=== PATIENT | male | born 1965 | race African-American/Black ===

== ENCOUNTER 2017-08-31 15:57 | Inpatient (IN) | payer OTHER ==
[2017-08-31 17:20] VITALS: BMI 29.8
--- NOTE | 2017-08-31 18:30 | HP ---
CIWA Score - CIWA Score Nausea/Vomitin Muscle Tremors: 4-Moderate,w/Arms Extend Anxiety: 4-Mod. Anxious/Guarded Agitation: 4-Moderately Restless Paroxysmal Sweats: 3 Orientation: 2-Disoriented Date<2 days Tacttile Disturbances: 1-Very Mild Itch/Numbness Auditory Disturbances: 0-None Visual Disturbances: 0-None Headache: 2-Mild CIWA-Ar Total Score: 23 Admission ROS BHS - HPI Chief Complaint: Withdrawal sx. Allergies/Adverse Reactions: Allergies Allergy/AdvReac Type Severity Reaction Status Date / Time No Known Allergies Allergy Verified 08/31/17 18:23 History of Present Illness: 51 y/o man with a long hx. of alcoholism is admitted for detox. Pt. has been in previous detox with 6 yrs. sober & drug free while attending [facility]. Exam Limitations: No Limitations - Ebola screening Have you traveled outside of the country in the last 21 days: No Have you had contact with anyone from an Ebola affected area: No Have you been sick,other than usual withdrawal symptoms: No Do you have a fever: No - Review of Systems Constitutional: Diaphoresis EENT: reports: No Symptoms Reported Respiratory: reports: No Symptoms reported Cardiac: reports: No Symptoms Reported GI: reports: Nausea, Vomiting, Abdominal cramping : reports: Frequency Musculoskeletal: reports: Back Pain, Joint Pain Integumentary: reports: Sweating Neuro: reports: Headache, Seizure (in the because of alcohol. was on dilantin for 1-2 yrs. then his doctor discontinue it.), Tingling, Tremors Endocrine: reports: No Symptoms Reported Hematology: reports: No Symptoms Reported Psychiatric: reports: No Sypmtoms Reported Other Systems: Reviewed and Negative Patient History - Patient Medical History Hx Anemia: No Hx Asthma: Yes Hx Chronic Obstructive Pulmonary Disease (COPD): No Hx Cancer: No Hx Cardiac Disorders: No Hx Congestive Heart Failure: No Hx Hypertension: Yes (No meds) Hx Hypercholesterolemia: No Hx Pacemaker: No HX Cerebrovascular Accident: No Hx Seizures: Yes (last in the ) Hx Dementia: No Hx Diabetes: No Hx Gastrointestinal Disorders: Yes (dyspepsia no meds) Hx Liver Disease: No Hx Genitourinary Disorders: No Hx Sexually Transmitted Disorders: Yes (GC, ? Syphillis) Hx Renal Disease (ESRD): No Hx Thyroid Disease: No Hx Human Immunodeficiency Virus (HIV): No Hx Hepatitis C: No Hx Depression: No Hx Suicide Attempt: Yes (jump off the 3rd fl at 10 y/o) Hx Bipolar Disorder: Yes (Seroquel & Remeron) Hx Schizophrenia: No Other Medical History: low back pain from buldging L-S disc - Patient Surgical History Past Surgical History: Yes Hx Breast Surgery: Yes (Gynecomastia) Hx Appendectomy: Yes Hx Cholecystectomy: Yes - PPD History Previous Implant?: Yes Documented Results: Positive w/o proof (Took INH x 9 months) Implanted On Prior [facility] Admission?: No PPD to be Administered?: No - Smoking Cessation Smoking history: Current every day smoker Aproximately how many cigarettes per day: 5 Hx Chewing Tobacco Use: No Initiated information on smoking cessation: Yes 'Breaking Loose' booklet given: 08/31/17 - Substance & Tx. History Hx Alcohol Use: Yes Hx Substance Use: Yes Substance Use Type: Alcohol, Cocaine Hx Substance Use Treatment: Yes (Detox [facility] in 2007 & [facility] in 2009) - Substances Abused Alcohol Route: Oral Frequency: Daily Amount used: Rum 1 pint, Beer 1(6pack) Age of first use: 11 Date of Last Use: 08/31/17 Cocaine Route: Inhalation Frequency: Daily Amount used: $20.00-100.00 Age of first use: 26 Date of Last Use: 08/31/17 Family Disease History - Family Disease History Family Disease History: Diabetes: Grandparent, Other: Father (Alcohol), Brother (Marihuana) Admission Physical Exam [facility] - Vital Signs Vital Signs: Vital Signs - 24 hr 08/31/17 17:18 Temperature 97.8 F Pulse Rate 100 H Respiratory 18 Rate Blood Pressure 128/75 - Physical General Appearance: Yes: Tremorous, Irritable, Sweating, Anxious HEENTM: Yes: Within Normal Limits Respiratory: Yes: Chest Non-Tender, Lungs Clear, Normal Breath Sounds Neck: Yes: Supple Breast: Yes: Breast Exam Deferred Cardiology: Yes: Regular Rhythm, Regular Rate, S1, S2 Abdominal: Yes: Normal Bowel Sounds, Non Tender, Flat Genitourinary: Yes: Within Normal Limits Back: Yes: Within Normal Limits Musculoskeletal: Yes: full range of Motion Extremities: Yes: Tremors Neurological: Yes: Fully Oriented, Alert Integumentary: Yes: Diaphoresis Lymphatic: Yes: Within Normal Limits - Diagnostic (1) Alcohol dependence with uncomplicated withdrawal Current Visit: Yes Status: Acute (2) Cocaine dependence, uncomplicated Current Visit: Yes Status: Acute (3) Asthma Current Visit: Yes Status: Acute Qualifiers: Asthma severity: mild Asthma persistence: intermittent Asthma complication type: uncomplicated Qualified Code(s): J45.20 - Mild intermittent asthma, uncomplicated (4) Lumbago Current Visit: Yes Status: Acute Qualifiers: Chronicity: chronic Cleared for Admission [facility] - Detox or Rehab [facility] Level of Care: Medically Managed Detox Regimen/Protocol: Librium [facility] Breath Alcohol Content Breath Alcohol Content: 0 Urine Drug Screen - Results Drug Screen Negative: No Urine Drug Screen Results: EDGARDO-Cocaine, TCA-Tricyclic Antidepress
[2017-08-31] MEDS ORDERED: LOPERAMIDE HCL 2 MG CAPSULE PO PRN (18:46)
[2017-08-31] MEDS ORDERED: MAGNESIUM CITRATE 300 ML BOTTLE PO PRN (18:46)
[2017-08-31] MEDS ORDERED: chlordiazePOXIDE HCL 25 MG CAPSULE PO ONE (18:46)
[2017-08-31] MEDS ORDERED: P-EPHED 60MG/TRIPROLIDI 2.5MG TABLET PO PRN (18:46)
[2017-08-31] MEDS ORDERED: guaiFENesin/D-METHORPHAN HB 10 ML UNIT-DOSE CUPS PO PRN (18:46)
[2017-08-31] MEDS ORDERED: NICOTINE POLACRILEX 2 MG GUM BC PRN (18:46)
[2017-08-31] MEDS ORDERED: hydrOXYzine PAMOATE 50 MG CAPSULE (FP) PO PRN (18:46)
[2017-08-31] MEDS ORDERED: MAGNESIUM HYDROX 2400MG/30ML ORAL SUSPENSION 30 ML CUP PO PRN (18:46)
[2017-08-31] MEDS ORDERED: chlordiazePOXIDE HCL 25 MG CAPSULE PO PRN (18:46)
[2017-08-31] MEDS ORDERED: ACETAMINOPHEN 325 MG TABLET (FP) PO PRN (18:46)
[2017-08-31] MEDS ORDERED: MENTHOL/PHENOL 1 EACH UD MM PRN (18:46)
[2017-08-31] MEDS ORDERED: ONDANSETRON *ODT* 4 MG TABLET SL ONE (18:49)
[2017-08-31] MEDS: NICOTINE 14 MG/24 HOURS TOPICAL PATCH TD SCH (20:05)
[2017-08-31] MEDS: METHOCARBAMOL 750 MG TABLET PO SCH ×2 (20:57→22:33)
[2017-08-31] MEDS: IBUPROFEN 400 MG TABLET (FP) PO PRN (20:58)
[2017-08-31] MEDS: THIAMINE HCL 100 MG TABLET (FP) PO SCH (22:33)
[2017-08-31] MEDS: chlordiazePOXIDE HCL 25 MG CAPSULE PO SCH (22:33)
[2017-09-01 01:49] LABS: URINE APPEARANCE CLEAR; URINE BILIRUBIN NEGATIVE (NEGATIVE); URINE BLOOD NEGATIVE (NEGATIVE); URINE COLOR LTYELLOW; URINE GLUCOSE (UA) NEGATIVE (NEGATIVE); URINE KETONE NEGATIVE (NEGATIVE); URINE NITRITE NEGATIVE (NEGATIVE); URINE UROBILINOGEN NEGATIVE mg/dL (0.2-1.0)
[2017-09-01 01:50] LABS: URINE PROTEIN 1+ (NEGATIVE)
[2017-09-01 01:53] LABS: URINE MUCUS RARE; URINE RBC < 1; URINE WBC < 1
[2017-09-01] MEDS: IBUPROFEN 400 MG TABLET (FP) PO PRN ×3 (04:26→22:04)
[2017-09-01] MEDS: chlordiazePOXIDE HCL 25 MG CAPSULE PO SCH ×4 (05:44→22:03)
--- NOTE | 2017-09-01 09:43 | EKG ---
Test Reason : Blood Pressure : / mmHG Vent. Rate : 092 BPM Atrial Rate : 092 BPM P-R Int : 152 ms QRS Dur : 086 ms QT Int : 366 ms P-R-T Axes : 063 074 056 degrees QTc Int : 452 ms NORMAL SINUS RHYTHM POSSIBLE LEFT ATRIAL ENLARGEMENT SEPTAL INFARCT , AGE UNDETERMINED ABNORMAL ECG NO PREVIOUS ECGS AVAILABLE Confirmed by SELENE KIM MD ([id number]) on 09/01/2017 9:42:37 AM Referred By: Confirmed By:SELENE KIM MD
[2017-09-01 10:19] LABS: MCH 29.3 pg (25.7-33.7); MCHC 32.8 g/dl (32.0-35.9); MEAN CELL VOLUME 89.4 fl (80-96); MEAN PLT VOLUME 8.8 fl (7.5-11.1); PLATELET COUNT 181 K/MM3 (134-434); RDW 14.1 % (11.9-15.9); WHITE BLOOD COUNT 4.9 K/mm3 (4.0-10.0)
[2017-09-01] MEDS: METHOCARBAMOL 750 MG TABLET PO SCH ×4 (10:21→22:05)
[2017-09-01] MEDS: ONDANSETRON *ODT* 4 MG TABLET SL PRN (10:22)
[2017-09-01] MEDS: PRENATAL VITAMINS W/ FOLIC ACID TABLET (FP) PO SCH (10:22)
[2017-09-01] MEDS: NICOTINE 14 MG/24 HOURS TOPICAL PATCH TD SCH (10:27)
[2017-09-01 10:32] LABS: ALBUMIN 3.5 g/dl (3.4-5.0); ALK PHOS 84 U/L (45-117); ANION GAP 5 (8-16); BILIRUBIN,TOTAL 0.4 mg/dL (0.2-1.0); CALCIUM 8.1 mg/dL (8.5-10.1); CO2 28 mmol/L (21-32); CREATININE 1.3 mg/dL (0.7-1.3); GLUCOSE,RANDOM 112 mg/dL (74-106); SGOT/AST 15 U/L (15-37); SGPT/ALT 24 U/L (12-78)
[2017-09-01 12:00] LABS: URINE LEUK ESTERASE Negative (NEGATIVE)
--- NOTE | 2017-09-01 12:17 | CONSULT ---
[facility] Psychiatric Consult - Data Date of interview: 09/01/17 Admission source: [facility] Identifying data: First admission to [facility] for this 51 y/o AA male seeking detox treatment on for alcohol and cocaine dependence.Patient is single, a father of four,domiciled,unemployed and supported on Public Assistance. Substance Abuse History: Patient endorses active use of alcohol and cocaine as detailed in [facility] report. Smoking history: Current every day smoker. Aproximately how many cigarettes per day: 5. Hx Chewing Tobacco Use: No. Initiated information on smoking cessation: Yes. 'Breaking Loose' booklet given : 08/31/17. - Substance & Tx. History. Hx Alcohol Use: Yes. Hx Substance Use : Yes. Substance Use Type: Alcohol, Cocaine. Hx Substance Use Treatment: Yes ( Detox [facility] in 2007 & [facility] in 2009). - Substances Abused. Alcohol. Route: Oral. Frequency: Daily. Amount used: Rum 1 pint, Beer 1(6pack). Age of first use: 11. Date of Last Use: 08/31/17. Cocaine. Route: Inhalation. Frequency: Daily. Amount used: $20.00-100.00. Age of first use: 26. Date of Last Use: 08/31/17 Medical History: Bronchial asthma,hypertension,seizure disorder (substance- related),dyspepsia,herniated disc,past history of surgery for gynecomastia and antecedent of syphilis/gonorrhea + INH treatment for nine months. Psychiatric History: Diagnosed with Bipolar Disorder.Medicated with seroquel 100 mg po bid + remeron 30 mg/hs.Patient admits to a history of 5-7 psychiatric hospitalizations.Known to [facility].Mr Escobar is under the care of Dr Silveira ,psychiatrist at the [facility] program in the [place].Patient reports history of two suicide attempts (overdose with pills + deliberate jump from a third floor window at age 10). Physical/Sexual Abuse/Trauma History: No reported history of abuse. Additional Comment: Urine Drug Screen Results: EDGARDO-Cocaine, TCA-Tricyclic Antidepressant.Noted. Mental Status Exam - Mental Status Exam Alert and Oriented to: Time, Place, Person Cognitive Function: Good Patient Appearance: Well Groomed Mood: Hopeful, Euthymic Affect: Appropriate, Normal Range Patient Behavior: Fatigued, Cooperative Speech Pattern: Clear Voice Loudness: Normal Thought Process: Intact, Goal Oriented Thought Disorder: Not Present Hallucinations: Denies Suicidal Ideation: Denies Homicidal Ideation: Denies Insight/Judgement: Poor Sleep: Poorly, Difficulty falling asleep Appetite: Good Muscle strength/Tone: Normal Gait/Station: Normal Psychiatric Findings - Problem List ([place] 1, 2,3) (1) Alcohol dependence with uncomplicated withdrawal Current Visit: Yes Status: Acute (2) Cocaine dependence, uncomplicated Current Visit: Yes Status: Acute (3) Nicotine dependence Current Visit: Yes Status: Acute (4) Substance induced mood disorder Current Visit: Yes Status: Acute (5) Insomnia Current Visit: Yes Status: Acute - Initial Treatment Plan Initial Treatment Plan: Psychoeducation.Sleep hygiene.Detoxification.Medications : seroquel 100 mg po bid + remeron 30 mg po hs.Side effects/benefits are discussed with patient.He agrees to follow this careplan.Observation.
--- NOTE | 2017-09-01 12:21 | PN ---
S CIWA - CIWA Score Nausea/Vomitin Muscle Tremors: 3 Anxiety: 4-Mod. Anxious/Guarded Agitation: 1-Slight > Activity Paroxysmal Sweats: 2 Orientation: 2-Disoriented Date<2 days Tacttile Disturbances: 0-None Auditory Disturbances: 0-None Visual Disturbances: 0-None Headache: 3-Moderate CIWA-Ar Total Score: 21 BHS Progress Note (SOAP) Subjective: Sweating, Tremors, Diarrhea, Vomiting, H/A, Interrupted Sleep, Body Aches, Tremors. Objective: PT. A & O X 2 (UNCERTAIN ABOUT DAY / DATE). PT. OBSERVED AMBULATING ON UNIT. NO ACUTE DISTRESS. 09/01/17 12:18 Vital Signs Temperature 95.6 F L 09/01/17 09:19 Pulse Rate 89 09/01/17 09:19 Respiratory Rate 20 09/01/17 09:19 Blood Pressure 125/81 09/01/17 09:19 O2 Sat by Pulse Oximetry (%) Laboratory Tests 08/31/17 09/01/17 09/01/17 19:28 07:00 07:00 WBC 4.9 RBC 4.64 Hgb 13.6 Hct 41.5 MCV 89.4 MCH 29.3 MCHC 32.8 RDW 14.1 Plt Count 181 MPV 8.8 Sodium 144 Potassium 3.8 Chloride 111 H Carbon Dioxide 28 Anion Gap 5 L BUN 18 Creatinine 1.3 Creat Clearance w eGFR 57.75 Random Glucose 112 H Calcium 8.1 L Total Bilirubin 0.4 AST 15 ALT 24 Alkaline Phosphatase 84 Total Protein 7.0 Albumin 3.5 Urine Color Ltyellow Urine Appearance Clear Urine pH 6.0 Ur Specific [place] 1.011 Urine Protein 1+ H Urine Glucose (UA) Negative Urine Ketones Negative Urine Blood Negative Urine Nitrite Negative Urine Bilirubin Negative Urine Urobilinogen Negative Urine WBC (Auto) < 1 Urine RBC (Auto) < 1 Ur Epithelial Cells Rare Urine Mucus Rare RPR Titer 09/01/17 07:00 WBC RBC Hgb Hct MCV MCH MCHC RDW Plt Count MPV Sodium Potassium Chloride Carbon Dioxide Anion Gap BUN Creatinine Creat Clearance w eGFR Random Glucose Calcium Total Bilirubin AST ALT Alkaline Phosphatase Total Protein Albumin Urine Color Urine Appearance Urine pH Ur Specific [place] Urine Protein Urine Glucose (UA) Urine Ketones Urine Blood Urine Nitrite Urine Bilirubin Urine Urobilinogen Urine WBC (Auto) Urine RBC (Auto) Ur Epithelial Cells Urine Mucus RPR Titer Nonreactive LABS NOTED. Assessment: 09/01/17 12:19 WITHDRAWAL SYMPTOMS. Plan: CONTINUE DETOX.
[2017-09-01] MEDS: ALBUTEROL SO4 18 GM HFA INHALER IH PRN (18:14)
[2017-09-01] MEDS: ALBUTEROL SO4 2.5/IPRATROPIUM 0.5 INH SOL 3 ML VIAL.NEB. NEB PRN (19:03)
[2017-09-01] MEDS: MIRTAZAPINE 30 MG TABLET (FP) PO SCH (22:03)
[2017-09-01] MEDS: QUEtiapine FUMARATE 100 MG TABLET (FP) PO SCH (22:03)
[2017-09-01] MEDS: THIAMINE HCL 100 MG TABLET (FP) PO SCH (22:06)
[2017-09-02] MEDS: chlordiazePOXIDE HCL 25 MG CAPSULE PO SCH ×3 (06:17→17:36)
[2017-09-02] MEDS: METHOCARBAMOL 750 MG TABLET PO SCH ×4 (10:42→22:11)
[2017-09-02] MEDS: PRENATAL VITAMINS W/ FOLIC ACID TABLET (FP) PO SCH (10:42)
[2017-09-02] MEDS: MAG HYDROX/AL HYDROX/SIMETH 30 ML UNIT-DOSE CUP PO PRN ×2 (10:42→21:47)
[2017-09-02] MEDS: QUEtiapine FUMARATE 100 MG TABLET (FP) PO SCH ×2 (10:43→22:11)
[2017-09-02] MEDS: NICOTINE 14 MG/24 HOURS TOPICAL PATCH TD SCH (10:43)
[2017-09-02] MEDS: IBUPROFEN 400 MG TABLET (FP) PO PRN ×3 (10:44→22:43)
[2017-09-02] MEDS: ALBUTEROL SO4 18 GM HFA INHALER IH PRN (10:48)
--- NOTE | 2017-09-02 14:13 | PN ---
S CIWA - CIWA Score Nausea/Vomitin Muscle Tremors: None Anxiety: 4-Mod. Anxious/Guarded Agitation: 3 Paroxysmal Sweats: No Perspiration Orientation: 2-Disoriented Date<2 days Tacttile Disturbances: 2-Mild Itch/Numbness/Burn Auditory Disturbances: 0-None Visual Disturbances: 0-None Headache: 3-Moderate CIWA-Ar Total Score: 19 BHS Progress Note (SOAP) Subjective: Interrupted Sleep, H/A, Vomiting, Stomach Cramping, Fatigue. Objective: PT. A & OX 2 (UNCERTAIN ABOUT DAY / DATE). PT. OBSERVED AMBULATING ON UNIT. NO ACUTE DISTRESS. 09/02/17 14:10 Vital Signs Temperature 96.4 F L 09/02/17 10:00 Pulse Rate 103 H 09/02/17 10:00 Respiratory Rate 18 09/02/17 10:00 Blood Pressure 134/94 09/02/17 10:00 O2 Sat by Pulse Oximetry (%) Laboratory Tests 08/31/17 09/01/17 09/01/17 19:28 07:00 07:00 WBC 4.9 RBC 4.64 Hgb 13.6 Hct 41.5 MCV 89.4 MCH 29.3 MCHC 32.8 RDW 14.1 Plt Count 181 MPV 8.8 Sodium 144 Potassium 3.8 Chloride 111 H Carbon Dioxide 28 Anion Gap 5 L BUN 18 Creatinine 1.3 Creat Clearance w eGFR 57.75 Random Glucose 112 H Calcium 8.1 L Total Bilirubin 0.4 AST 15 ALT 24 Alkaline Phosphatase 84 Total Protein 7.0 Albumin 3.5 Urine Color Ltyellow Urine Appearance Clear Urine pH 6.0 Ur Specific [place] 1.011 Urine Protein 1+ H Urine Glucose (UA) Negative Urine Ketones Negative Urine Blood Negative Urine Nitrite Negative Urine Bilirubin Negative Urine Urobilinogen Negative Ur Leukocyte Esterase Negative Urine WBC (Auto) < 1 Urine RBC (Auto) < 1 Ur Epithelial Cells Rare Urine Mucus Rare RPR Titer 09/01/17 07:00 WBC RBC Hgb Hct MCV MCH MCHC RDW Plt Count MPV Sodium Potassium Chloride Carbon Dioxide Anion Gap BUN Creatinine Creat Clearance w eGFR Random Glucose Calcium Total Bilirubin AST ALT Alkaline Phosphatase Total Protein Albumin Urine Color Urine Appearance Urine pH Ur Specific [place] Urine Protein Urine Glucose (UA) Urine Ketones Urine Blood Urine Nitrite Urine Bilirubin Urine Urobilinogen Ur Leukocyte Esterase Urine WBC (Auto) Urine RBC (Auto) Ur Epithelial Cells Urine Mucus RPR Titer Nonreactive LABS NOTED. Assessment: 09/02/17 14:12 WITHDRAWAL SYMPTOMS. Plan: CONTINUE DETOX. PRN ZOFRAN SL FOR NAUSEA / VOMITING. INCREASE DAILY PO FLUID INTAKE.
[2017-09-02] MEDS: ONDANSETRON *ODT* 4 MG TABLET SL PRN (14:36)
[2017-09-02] MEDS: ALBUTEROL SO4 2.5/IPRATROPIUM 0.5 INH SOL 3 ML VIAL.NEB. NEB PRN (18:21)
[2017-09-02] MEDS: THIAMINE HCL 100 MG TABLET (FP) PO SCH (22:11)
[2017-09-02] MEDS: chlordiazePOXIDE 5 MG CAPSULE PO SCH (22:11)
[2017-09-02] MEDS: MIRTAZAPINE 30 MG TABLET (FP) PO SCH (22:11)
[2017-09-03] MEDS: chlordiazePOXIDE 5 MG CAPSULE PO SCH ×3 (06:18→17:39)
[2017-09-03] MEDS: ONDANSETRON *ODT* 4 MG TABLET SL PRN ×2 (09:50→15:14)
[2017-09-03] MEDS: PRENATAL VITAMINS W/ FOLIC ACID TABLET (FP) PO SCH (10:34)
[2017-09-03] MEDS: QUEtiapine FUMARATE 100 MG TABLET (FP) PO SCH ×2 (10:34→22:18)
[2017-09-03] MEDS: NICOTINE 14 MG/24 HOURS TOPICAL PATCH TD SCH (10:34)
[2017-09-03] MEDS: METHOCARBAMOL 750 MG TABLET PO SCH ×4 (10:34→22:19)
--- NOTE | 2017-09-03 13:04 | PN ---
BHS Progress Note (SOAP) Subjective: Constipation, Nausea, Stomach Cramping, Fatigue, Interrupted Sleep. Objective: PT. A & O X 2 (UNCERTAIN ABOUT DAY / DATE). PT. OBSERVED AMBULATING ON UNIT. NO ACUTE DISTRESS. 09/03/17 13:02 Vital Signs Temperature 96.8 F L 09/03/17 09:43 Pulse Rate 106 H 09/03/17 09:43 Respiratory Rate 16 09/03/17 09:43 Blood Pressure 135/88 09/03/17 09:43 O2 Sat by Pulse Oximetry (%) Laboratory Tests 08/31/17 09/01/17 09/01/17 19:28 07:00 07:00 WBC 4.9 RBC 4.64 Hgb 13.6 Hct 41.5 MCV 89.4 MCH 29.3 MCHC 32.8 RDW 14.1 Plt Count 181 MPV 8.8 Sodium 144 Potassium 3.8 Chloride 111 H Carbon Dioxide 28 Anion Gap 5 L BUN 18 Creatinine 1.3 Creat Clearance w eGFR 57.75 Random Glucose 112 H Calcium 8.1 L Total Bilirubin 0.4 AST 15 ALT 24 Alkaline Phosphatase 84 Total Protein 7.0 Albumin 3.5 Urine Color Ltyellow Urine Appearance Clear Urine pH 6.0 Ur Specific [place] 1.011 Urine Protein 1+ H Urine Glucose (UA) Negative Urine Ketones Negative Urine Blood Negative Urine Nitrite Negative Urine Bilirubin Negative Urine Urobilinogen Negative Ur Leukocyte Esterase Negative Urine WBC (Auto) < 1 Urine RBC (Auto) < 1 Ur Epithelial Cells Rare Urine Mucus Rare RPR Titer 09/01/17 07:00 WBC RBC Hgb Hct MCV MCH MCHC RDW Plt Count MPV Sodium Potassium Chloride Carbon Dioxide Anion Gap BUN Creatinine Creat Clearance w eGFR Random Glucose Calcium Total Bilirubin AST ALT Alkaline Phosphatase Total Protein Albumin Urine Color Urine Appearance Urine pH Ur Specific [place] Urine Protein Urine Glucose (UA) Urine Ketones Urine Blood Urine Nitrite Urine Bilirubin Urine Urobilinogen Ur Leukocyte Esterase Urine WBC (Auto) Urine RBC (Auto) Ur Epithelial Cells Urine Mucus RPR Titer Nonreactive LABS NOTED. Assessment: 09/03/17 13:03 WITHDRAWAL SYMPTOMS. Plan: CONTINUE DETOX. INCREASE DAILY PO FLUID INTAKE. PRN ZOFRAN SL FOR NAUSEA. PRN MOM FOR CONSTIPATION.
[2017-09-03] MEDS: IBUPROFEN 400 MG TABLET (FP) PO PRN (17:40)
[2017-09-03] MEDS: THIAMINE HCL 100 MG TABLET (FP) PO SCH (22:18)
[2017-09-03] MEDS: MIRTAZAPINE 30 MG TABLET (FP) PO SCH (22:19)
[2017-09-03] MEDS: chlordiazePOXIDE HCL 10 MG CAPSULE PO SCH (22:19)
[2017-09-03] MEDS: ALBUTEROL SO4 2.5/IPRATROPIUM 0.5 INH SOL 3 ML VIAL.NEB. NEB PRN (22:24)
[2017-09-04] MEDS: ONDANSETRON *ODT* 4 MG TABLET SL PRN (02:02)
[2017-09-04] MEDS: chlordiazePOXIDE HCL 10 MG CAPSULE PO SCH ×3 (06:07→17:21)
[2017-09-04] MEDS: QUEtiapine FUMARATE 100 MG TABLET (FP) PO SCH ×2 (10:26→22:29)
[2017-09-04] MEDS: PRENATAL VITAMINS W/ FOLIC ACID TABLET (FP) PO SCH (10:26)
[2017-09-04] MEDS: NICOTINE 14 MG/24 HOURS TOPICAL PATCH TD SCH (10:27)
[2017-09-04] MEDS: METHOCARBAMOL 750 MG TABLET PO SCH ×4 (10:27→22:30)
[2017-09-04] MEDS: IBUPROFEN 400 MG TABLET (FP) PO PRN ×2 (13:55→22:29)
--- NOTE | 2017-09-04 14:36 | PN ---
BHS Progress Note (SOAP) Subjective: Interrupted Sleep, Fatigue, Anxious, H/A, Diarrhea, Body Aches. Objective: PT. A & O X 2 (UNCERTAIN ABOUT DAY / DATE). PT. OBSERVED AMBULATING ON UNIT. NO ACUTE DISTRESS. 09/04/17 14:34 Vital Signs Temperature 96.3 F L 09/04/17 08:52 Pulse Rate 99 H 09/04/17 08:52 Respiratory Rate 20 09/04/17 08:52 Blood Pressure 126/85 09/04/17 08:52 O2 Sat by Pulse Oximetry (%) Laboratory Tests 08/31/17 09/01/17 09/01/17 19:28 07:00 07:00 WBC 4.9 RBC 4.64 Hgb 13.6 Hct 41.5 MCV 89.4 MCH 29.3 MCHC 32.8 RDW 14.1 Plt Count 181 MPV 8.8 Sodium 144 Potassium 3.8 Chloride 111 H Carbon Dioxide 28 Anion Gap 5 L BUN 18 Creatinine 1.3 Creat Clearance w eGFR 57.75 Random Glucose 112 H Calcium 8.1 L Total Bilirubin 0.4 AST 15 ALT 24 Alkaline Phosphatase 84 Total Protein 7.0 Albumin 3.5 Urine Color Ltyellow Urine Appearance Clear Urine pH 6.0 Ur Specific [place] 1.011 Urine Protein 1+ H Urine Glucose (UA) Negative Urine Ketones Negative Urine Blood Negative Urine Nitrite Negative Urine Bilirubin Negative Urine Urobilinogen Negative Ur Leukocyte Esterase Negative Urine WBC (Auto) < 1 Urine RBC (Auto) < 1 Ur Epithelial Cells Rare Urine Mucus Rare RPR Titer 09/01/17 07:00 WBC RBC Hgb Hct MCV MCH MCHC RDW Plt Count MPV Sodium Potassium Chloride Carbon Dioxide Anion Gap BUN Creatinine Creat Clearance w eGFR Random Glucose Calcium Total Bilirubin AST ALT Alkaline Phosphatase Total Protein Albumin Urine Color Urine Appearance Urine pH Ur Specific [place] Urine Protein Urine Glucose (UA) Urine Ketones Urine Blood Urine Nitrite Urine Bilirubin Urine Urobilinogen Ur Leukocyte Esterase Urine WBC (Auto) Urine RBC (Auto) Ur Epithelial Cells Urine Mucus RPR Titer Nonreactive LABS NOTED. Assessment: 09/04/17 14:35 WITHDRAWAL SYMPTOMS. Plan: CONTINUE DETOX. INCREASE DAILY PO FLUID INTAKE. PRN IMMODIUM FOR DIARRHEA. PRN ZOFRAN SL FOR VOMITING.
[2017-09-04] MEDS: ALBUTEROL SO4 2.5/IPRATROPIUM 0.5 INH SOL 3 ML VIAL.NEB. NEB PRN (17:59)
[2017-09-04] MEDS: MIRTAZAPINE 30 MG TABLET (FP) PO SCH (22:29)
[2017-09-04] MEDS: THIAMINE HCL 100 MG TABLET (FP) PO SCH (22:29)
[2017-09-05] MEDS: METHOCARBAMOL 750 MG TABLET PO SCH (09:03)
[2017-09-05] MEDS: PRENATAL VITAMINS W/ FOLIC ACID TABLET (FP) PO SCH (09:03)
[2017-09-05] MEDS: IBUPROFEN 400 MG TABLET (FP) PO PRN (09:03)
[2017-09-05 10:21] VITALS: BP 127/81; PULSE 99; TEMP 96.5
--- NOTE | 2017-09-05 17:29 | DS ---
[facility] Detox Discharge Summary Admission Date: 08/31/17 Discharge Date: 09/05/17 - History Present History: Alcohol Dependence, Cocaine Dependence Additional Comments: PATIENT REPORTS THAT HE WILL PURSUE LOCAL 12-STEP / NA / AA OUTPATIENT SUPPORT GROUP MEETINGS FOR AFTERCARE. PATIENT WAS DISCHARGED FROM DETOX UNIT IN STABLE MEDICAL CONDITION. Pertinent Past History: History of Seizures, Nicotine Dependence, Lumbago, Asthma, Insomnia. - Physical Exam Results Vital Signs: Vital Signs Temperature 96.5 F L 09/05/17 10:00 Pulse Rate 99 H 09/05/17 10:00 Respiratory Rate 18 09/05/17 10:00 Blood Pressure 127/81 09/05/17 10:00 O2 Sat by Pulse Oximetry (%) Pertinent Admission Physical Exam Findings: WITHDRAWAL SYMPTOMS. Laboratory Tests 08/31/17 09/01/17 09/01/17 19:28 07:00 07:00 WBC 4.9 RBC 4.64 Hgb 13.6 Hct 41.5 MCV 89.4 MCH 29.3 MCHC 32.8 RDW 14.1 Plt Count 181 MPV 8.8 Sodium 144 Potassium 3.8 Chloride 111 H Carbon Dioxide 28 Anion Gap 5 L BUN 18 Creatinine 1.3 Creat Clearance w eGFR 57.75 Random Glucose 112 H Calcium 8.1 L Total Bilirubin 0.4 AST 15 ALT 24 Alkaline Phosphatase 84 Total Protein 7.0 Albumin 3.5 Urine Color Ltyellow Urine Appearance Clear Urine pH 6.0 Ur Specific [place] 1.011 Urine Protein 1+ H Urine Glucose (UA) Negative Urine Ketones Negative Urine Blood Negative Urine Nitrite Negative Urine Bilirubin Negative Urine Urobilinogen Negative Ur Leukocyte Esterase Negative Urine WBC (Auto) < 1 Urine RBC (Auto) < 1 Ur Epithelial Cells Rare Urine Mucus Rare RPR Titer 09/01/17 07:00 WBC RBC Hgb Hct MCV MCH MCHC RDW Plt Count MPV Sodium Potassium Chloride Carbon Dioxide Anion Gap BUN Creatinine Creat Clearance w eGFR Random Glucose Calcium Total Bilirubin AST ALT Alkaline Phosphatase Total Protein Albumin Urine Color Urine Appearance Urine pH Ur Specific [place] Urine Protein Urine Glucose (UA) Urine Ketones Urine Blood Urine Nitrite Urine Bilirubin Urine Urobilinogen Ur Leukocyte Esterase Urine WBC (Auto) Urine RBC (Auto) Ur Epithelial Cells Urine Mucus RPR Titer Nonreactive LABS NOTED. - Treatment Hospital Course: Detox Protocol Followed, Detoxed Safely, Responded well, Discharged Condition Good Patient has Accepted a Rehab Referral to: PT ADVISED TO CONSIDER LOCAL 12-STEP/ NA/AA OUTPATIENT SUPPORT GROUPS. - Medication Discharge Medications: Ambulatory Orders Mirtazapine [Remeron -] 30 mg PO HS 08/31/17 Quetiapine Fumarate [Seroquel] 100 mg PO BID 08/31/17 Albuterol Sulfate Inhaler - [Ventolin Hfa Inhaler -] 2 inh PO Q4H #1 inhaler - Diagnosis (1) Alcohol dependence with uncomplicated withdrawal Status: Acute (2) Cocaine dependence, uncomplicated Status: Acute (3) Asthma Status: Chronic Qualifiers: Asthma severity: mild Asthma persistence: intermittent Asthma complication type: uncomplicated Qualified Code(s): J45.20 - Mild intermittent asthma, uncomplicated (4) Insomnia Status: Acute Qualifiers: Insomnia type: unspecified Qualified Code(s): G47.00 - Insomnia, unspecified (5) Lumbago Status: Chronic Qualifiers: Chronicity: chronic Back pain laterality: unspecified Sciatica presence: unspecified whether sciatica present Qualified Code(s): M54.5 - Low back pain ; G89.29 - Other chronic pain; G89.29 - Other chronic pain (6) Nicotine dependence Status: Acute Qualifiers: Nicotine product type: cigarettes Substance use status: uncomplicated Qualified Code(s): F17.210 - Nicotine dependence, cigarettes, uncomplicated (7) Substance induced mood disorder Status: Acute - AMA Did Patient Leave Against Medical Advice: No
== END 2017-09-05 09:06 | disposition home or self-care (01) | DRG 774 ==
LOC: YASAS 15:57 → Y3N 19:23
PROVIDERS: ADMIT Internal Medicine; ATTEND Internal Medicine
PROC: HZ2ZZZZ Detoxification Services for Substance Abuse Treatment (ICD-10-PCS; principal; 2017-08-31)
DX: F10.230 Alcohol dependence with withdrawal, uncomplicated (principal); F14.20 Cocaine dependence, uncomplicated; F17.210 Nicotine dependence, cigarettes, uncomplicated; F19.24 Other psychoactive substance dependence with psychoactive substance-induced mood disorder; I10 Essential (primary) hypertension; J45.20 Mild intermittent asthma, uncomplicated; M54.5 Low back pain; G89.29 Other chronic pain; Z86.69 Personal history of other diseases of the nervous system and sense organs; Z87.438 Personal history of other diseases of male genital organs; Z91.5 Personal history of self-harm
CPT/HCPCS: 36415; 71020-TC; 80053; 81003; 81015; 85027; 86593; 93005; 93010; 94640

== ENCOUNTER 2018-02-14 14:59 | Inpatient (IN) | payer OTHER ==
[2018-02-14 15:04] VITALS: BMI 30.2
--- NOTE | 2018-02-14 15:51 | HP ---
COWS - Scale Resting Pulse: 2= [place] 101-120 Sweatin=Flushed/Facial Moisture Restless Observation: 1= Difficult to Sit Still Pupil Size: 0= Normal to Room Light Bone or Joint Aches: 2= Severe Diffuse Aches Runny Nose/ Eye Tearin= Runny Nose/Eyes GI Upset > 30mins: 3= Vomiting/Diarrhea Tremor Observation: 2= Slight Tremor Visible Yawning Observation: 1= 1-2x During Session Anxiety or Irritability: 2=Irritable/Anxious Goose Flesh Skin: 3=Piloerection COWS Score: 20 CIWA Score - CIWA Score Nausea/Vomitin Muscle Tremors: 3 Anxiety: 3 Agitation: 2 Paroxysmal Sweats: 2 Orientation: 0-Oriented Tacttile Disturbances: 2-Mild Itch/Numbness/Burn Auditory Disturbances: 0-None Visual Disturbances: 1-Very Mild Sensitivity Headache: 4-Moderately Severe CIWA-Ar Total Score: 20 Admission ROS S - HPI Chief Complaint: "I need detoxification" Allergies/Adverse Reactions: Allergies Allergy/AdvReac Type Severity Reaction Status Date / Time No Known Allergies Allergy Verified 08/31/17 19:05 History of Present Illness: 52 year old AA man with long standing h/o alcohol dependence presents for detox. Patient with positive benzo in urine which he claims is from pain management given for his back pain Exam Limitations: No Limitations - Ebola screening Have you traveled outside of the country in the last 21 days: No Have you had contact with anyone from an Ebola affected area: No Have you been sick,other than usual withdrawal symptoms: No Do you have a fever: No - Review of Systems Constitutional: Chills, Loss of Appetite, Changes in sleep EENT: reports: Dental Problems (missing some teeth), Other (left eye blindness from ) Respiratory: reports: Cough Cardiac: reports: No Symptoms Reported GI: reports: Diarrhea, Poor Appetite, Poor Fluid Intake : reports: No Symptoms Reported Musculoskeletal: reports: Back Pain, Joint Pain, Muscle Pain, Muscle Weakness Integumentary: reports: No Symptoms Reported Neuro: reports: Headache, Numbness, Tremors Endocrine: reports: No Symptoms Reported Hematology: reports: No Symptoms Reported Psychiatric: reports: Anxious, Depressed Other Systems: Reviewed and Negative Patient History - Patient Medical History Hx Anemia: No Hx Asthma: Yes Hx Chronic Obstructive Pulmonary Disease (COPD): No Hx Cancer: No Hx Cardiac Disorders: No Hx Congestive Heart Failure: No Hx Hypertension: No Hx Hypercholesterolemia: No Hx Pacemaker: No HX Cerebrovascular Accident: No Hx Seizures: Yes (alcohol reated in 1979) Hx Dementia: No Hx Diabetes: No Hx Gastrointestinal Disorders: No Hx Liver Disease: No Hx Genitourinary Disorders: No Hx Sexually Transmitted Disorders: No Hx Renal Disease (ESRD): No Hx Thyroid Disease: No Hx Human Immunodeficiency Virus (HIV): No Hx Hepatitis C: No Hx Depression: Yes Hx Suicide Attempt: Yes (jump off the 3rd fl at 10 y/o) Hx Bipolar Disorder: Yes (Seroquel & Remeron) Hx Schizophrenia: No - Patient Surgical History Past Surgical History: Yes Hx Breast Surgery: Yes (Gynecomastia) Hx Appendectomy: Yes Hx Cholecystectomy: Yes Anesthesia Reaction: No - PPD History Previous Implant?: Yes Documented Results: Positive w/o proof Implanted On Prior [facility] Admission?: No PPD to be Administered?: No - Smoking Cessation Smoking history: Current every day smoker Have you smoked in the past 12 months: Yes Aproximately how many cigarettes per day: 20 Hx Chewing Tobacco Use: No Initiated information on smoking cessation: Yes 'Breaking Loose' booklet given: 02/14/18 - Substance & Tx. History Hx Alcohol Use: Yes (beer and vodka) Hx Substance Use: Yes Substance Use Type: Alcohol, Cocaine Hx Substance Use Treatment: Yes - Substances Abused Alcohol Route: Oral Frequency: Daily Amount used: 2 pint and 6 pack Age of first use: 11 Date of Last Use: 02/14/18 Cocaine Route: Smoking Frequency: Daily Amount used: $200-$1000 Age of first use: 26 Date of Last Use: 02/14/18 Marijuana/Hashish Route: Smoking Frequency: Daily Amount used: 4 blunts Age of first use: 11 Date of Last Use: 02/14/18 Family Disease History - Family Disease History Family Disease History: Diabetes: Grandparent, Other: Father (Alcohol), Brother (Marijuana) Admission Physical Exam [facility] - Vital Signs Vital Signs: Vital Signs - 24 hr 02/14/18 15:02 Temperature 98.3 F Pulse Rate 103 H Respiratory 20 Rate Blood Pressure 147/90 - Physical General Appearance: Yes: No Apparent Distress, Alcohol on Breath HEENTM: Yes: Hearing grossly Normal, Normal ENT Inspection, Normocephalic, Pharynx Normal Respiratory: Yes: Chest Non-Tender, Lungs Clear, Normal Breath Sounds, No Respiratory Distress, No Accessory Muscle Use Neck: Yes: No masses,lesions,Nodules Breast: Yes: Breast Exam Deferred Cardiology: Yes: Regular Rhythm, Regular Rate, S1, S2 Abdominal: Yes: Normal Bowel Sounds, Other (firm) Genitourinary: Yes: Within Normal Limits Back: Yes: Vertebral Tenderness Extremities: Yes: Normal Range of Motion, Tremors Neurological: Yes: counter hop II-XII NML intact, Fully Oriented, Alert, Motor Strength 5/5, Normal Mood/Affect, Normal Response Integumentary: Yes: Normal Color, Warm Lymphatic: Yes: Within Normal Limits - Diagnostic (1) Alcohol dependence with uncomplicated withdrawal Current Visit: No Status: Acute (2) Cocaine dependence, uncomplicated Current Visit: No Status: Acute (3) Nicotine dependence Current Visit: No Status: Acute Qualifiers: Nicotine product type: cigarettes Substance use status: uncomplicated Qualified Code(s): F17.210 - Nicotine dependence, cigarettes, uncomplicated (4) Asthma Current Visit: No Status: Chronic Qualifiers: Asthma severity: mild Asthma persistence: intermittent Asthma complication type: uncomplicated Qualified Code(s): J45.20 - Mild intermittent asthma, uncomplicated (5) Lumbago Current Visit: No Status: Chronic Qualifiers: Chronicity: chronic Back pain laterality: unspecified Sciatica presence: unspecified whether sciatica present Qualified Code(s): M54.5 - Low back pain ; G89.29 - Other chronic pain; G89.29 - Other chronic pain Cleared for Admission [facility] - Detox or Rehab [facility] Level of Care: Medically Managed Detox Regimen/Protocol: Librium [facility] Breath Alcohol Content Breath Alcohol Content: 0.005 Urine Drug Screen - Results Drug Screen Negative: No Urine Drug Screen Results: THC-Marijuana, EDGARDO-Cocaine, BZO-Benzodiazepines
[2018-02-14] MEDS ORDERED: chlordiazePOXIDE HCL 25 MG CAPSULE PO ONE (16:02)
[2018-02-14] MEDS ORDERED: P-EPHED 60MG/TRIPROLIDI 2.5MG TABLET PO PRN (16:02)
[2018-02-14] MEDS ORDERED: LOPERAMIDE HCL 2 MG CAPSULE PO PRN (16:02)
[2018-02-14] MEDS ORDERED: chlordiazePOXIDE HCL 25 MG CAPSULE PO PRN (16:02)
[2018-02-14] MEDS ORDERED: MAGNESIUM HYDROX 2400MG/30ML ORAL SUSPENSION 30 ML CUP PO PRN (16:02)
[2018-02-14] MEDS ORDERED: MAGNESIUM CITRATE 300 ML BOTTLE PO PRN (16:02)
[2018-02-14] MEDS ORDERED: MAG HYDROX/AL HYDROX/SIMETH 30 ML UNIT-DOSE CUP PO PRN (16:02)
[2018-02-14] MEDS ORDERED: guaiFENesin/D-METHORPHAN HB 10 ML UNIT-DOSE CUPS PO PRN (16:02)
[2018-02-14] MEDS ORDERED: hydrOXYzine PAMOATE 50 MG CAPSULE (FP) PO PRN (16:02)
[2018-02-14] MEDS ORDERED: MENTHOL/PHENOL 1 EACH UD MM PRN (16:02)
[2018-02-14] MEDS: NICOTINE POLACRILEX 2 MG GUM BC PRN (19:25)
[2018-02-14] MEDS: NICOTINE 21 MG/24 HOURS TOPICAL PATCH TD SCH (19:27)
[2018-02-14] MEDS: chlordiazePOXIDE HCL 25 MG CAPSULE PO SCH ×2 (19:28→22:36)
[2018-02-14 22:33] LABS: URINE APPEARANCE CLEAR; URINE BILIRUBIN NEGATIVE (<2.0 mg/dL); URINE COLOR LTYELLOW; URINE GLUCOSE (UA) NEGATIVE (NEGATIVE); URINE KETONE NEGATIVE (NEGATIVE); URINE LEUK ESTERASE NEGATIVE (NEGATIVE); URINE NITRITE NEGATIVE (NEGATIVE)
[2018-02-14] MEDS: THIAMINE HCL 100 MG TABLET (FP) PO SCH (22:36)
[2018-02-14 22:38] LABS: URINE PROTEIN 1+ (NEGATIVE)
[2018-02-14 22:40] LABS: EPI CELLS RARE /HPF (FEW)
[2018-02-15] MEDS: chlordiazePOXIDE HCL 25 MG CAPSULE PO SCH ×4 (06:46→22:08)
[2018-02-15] MEDS: PRENATAL VITAMINS W/ FOLIC ACID TABLET (FP) PO SCH (10:27)
[2018-02-15] MEDS: ONDANSETRON *ODT* 4 MG TABLET SL PRN (10:27)
[2018-02-15] MEDS: NICOTINE POLACRILEX 2 MG GUM BC PRN (10:27)
[2018-02-15] MEDS: IBUPROFEN 400 MG TABLET (FP) PO PRN ×2 (10:28→17:05)
[2018-02-15] MEDS: NICOTINE 21 MG/24 HOURS TOPICAL PATCH TD SCH (10:29)
--- NOTE | 2018-02-15 12:47 | PN ---
S CIWA - CIWA Score Nausea/Vomitin-Int. Nausea w/Dry Heave Muscle Tremors: 3 Anxiety: 4-Mod. Anxious/Guarded Agitation: 4-Moderately Restless Paroxysmal Sweats: 1-Minimal Palms Moist Orientation: 0-Oriented Tacttile Disturbances: 0-None Auditory Disturbances: 0-None Visual Disturbances: 0-None Headache: 2-Mild CIWA-Ar Total Score: 18 [facility] COWS - Scale Resting Pulse: 1= [place] 81-100 Sweatin= Chills/Flushing Restless Observation: 3= Extraneous Movement Pupil Size: 2= Moderately Dilated Bone or Joint Aches: 4=Acute Joint/Muscle Pain Runny Nose/ Eye Tearin= Nasal Congestion GI Upset > 30mins: 2= Nausea/Diarrhea Tremor Observation of Outstretched Hands: 2= Slight Tremor Visible Yawning Observation: 1= 1-2x During Session Anxiety or Irritability: 2=Irritable/Anxious Goose Flesh Skin: 0=Smooth Skin COWS Score: 19 S Progress Note (SOAP) Subjective: IRRITABILITY,AGITATIONS,"STOMACH UPSET", NAUSEA/VOMITING, SLIGHTLY GROGGY. Objective: 02/15/18 12:46 Vital Signs Temperature 96.0 F L 02/15/18 09:34 Pulse Rate 90 02/15/18 09:34 Respiratory Rate 18 02/15/18 09:34 Blood Pressure 102/70 02/15/18 09:34 O2 Sat by Pulse Oximetry (%) Laboratory Tests 02/14/18 22:00 Urine Color Ltyellow Urine Appearance Clear Urine pH 6.0 Ur Specific [place] 1.014 Urine Protein 1+ H Urine Glucose (UA) Negative Urine Ketones Negative Urine Blood Negative Urine Nitrite Negative Urine Bilirubin Negative Urine Urobilinogen 2.0 Ur Leukocyte Esterase Negative Urine WBC (Auto) 5 Urine RBC (Auto) <1 Ur Epithelial Cells Rare OTHER LABS PENDING Assessment: 02/15/18 12:47 WITHDRAWAL SX Plan: CONTINUE DETOX
--- NOTE | 2018-02-15 14:34 | EKG ---
Test Reason : Blood Pressure : / mmHG Vent. Rate : 091 BPM Atrial Rate : 091 BPM P-R Int : 146 ms QRS Dur : 106 ms QT Int : 366 ms P-R-T Axes : 070 073 069 degrees QTc Int : 450 ms NORMAL SINUS RHYTHM POSSIBLE LEFT ATRIAL ENLARGEMENT BORDERLINE ECG WHEN COMPARED WITH ECG OF 31-AUG-2017 21:17, CRITERIA FOR SEPTAL INFARCT ARE NO LONGER PRESENT NON-SPECIFIC CHANGE IN ST SEGMENT IN ANTERIOR LEADS Confirmed by MD Farooq, Royce ([id number]) on 02/15/2018 2:34:43 PM Referred By: Kannan Queen Confirmed By:Royce Trivedi MD
[2018-02-15] MEDS: ACETAMINOPHEN 325 MG TABLET (FP) PO PRN (21:43)
[2018-02-15] MEDS: THIAMINE HCL 100 MG TABLET (FP) PO SCH (22:08)
[2018-02-15] MEDS: MELATONIN 5 MG TABLETS PO PRN (22:09)
[2018-02-15] MEDS: ALBUTEROL SO4 18 GM HFA INHALER IH PRN (22:11)
[2018-02-16] MEDS: IBUPROFEN 400 MG TABLET (FP) PO PRN (03:13)
[2018-02-16] MEDS: ONDANSETRON *ODT* 4 MG TABLET SL PRN (03:14)
[2018-02-16] MEDS: chlordiazePOXIDE HCL 25 MG CAPSULE PO SCH ×2 (06:20→10:52)
[2018-02-16] MEDS: ACETAMINOPHEN 325 MG TABLET (FP) PO PRN (06:28)
[2018-02-16] MEDS: ALBUTEROL SO4 18 GM HFA INHALER IH PRN (07:13)
[2018-02-16] MEDS ORDERED: CYCLOBENZAPRINE HCL 10 MG TABLET (FP) PO ONE (09:30)
--- NOTE | 2018-02-16 10:51 | PN ---
[facility] CIWA - CIWA Score Nausea/Vomitin-No Nausea/No Vomiting Muscle Tremors: 4-Moderate,w/Arms Extend Anxiety: 4-Mod. Anxious/Guarded Agitation: 4-Moderately Restless Paroxysmal Sweats: 1-Minimal Palms Moist Orientation: 0-Oriented Tacttile Disturbances: 0-None Auditory Disturbances: 0-None Visual Disturbances: 0-None Headache: 0-None Present CIWA-Ar Total Score: 13 [facility] COWS - Scale Resting Pulse: 0= [place] 80 or Below Sweatin= Chills/Flushing Restless Observation: 3= Extraneous Movement Pupil Size: 0= Normal to Room Light Bone or Joint Aches: 4=Acute Joint/Muscle Pain Runny Nose/ Eye Tearin= Nasal Congestion GI Upset > 30mins: 0= None Tremor Observation of Outstretched Hands: 2= Slight Tremor Visible Yawning Observation: 1= 1-2x During Session Anxiety or Irritability: 2=Irritable/Anxious Goose Flesh Skin: 0=Smooth Skin COWS Score: 14 [facility] Progress Note (SOAP) Subjective: ANXIETY,SWEATS, IRRITABILITY,LOWER BACK PAIN. Objective: 02/16/18 10:48 Laboratory Tests 02/14/18 22:00 Urine Color Ltyellow Urine Appearance Clear Urine pH 6.0 Ur Specific [place] 1.014 Urine Protein 1+ H Urine Glucose (UA) Negative Urine Ketones Negative Urine Blood Negative Urine Nitrite Negative Urine Bilirubin Negative Urine Urobilinogen 2.0 Ur Leukocyte Esterase Negative Urine WBC (Auto) 5 Urine RBC (Auto) <1 Ur Epithelial Cells Rare Vital Signs Temperature 97.1 F L 02/16/18 09:19 Pulse Rate 85 02/16/18 09:19 Respiratory Rate 20 02/16/18 09:19 Blood Pressure 110/76 02/16/18 09:19 O2 Sat by Pulse Oximetry (%) Assessment: 02/16/18 10:50 WITHDRAWAL SX Plan: CONTINUE DETOX INCREASE MOTRIN 600 MG PO Q6H PRN
[2018-02-16] MEDS: IBUPROFEN 600 MG TABLET (FP) PO PRN ×2 (10:52→20:02)
[2018-02-16] MEDS: PRENATAL VITAMINS W/ FOLIC ACID TABLET (FP) PO SCH (10:52)
[2018-02-16] MEDS: NICOTINE 21 MG/24 HOURS TOPICAL PATCH TD SCH (11:00)
[2018-02-16] MEDS: CYCLOBENZAPRINE HCL 10 MG TABLET (FP) PO SCH ×2 (15:08→22:20)
--- NOTE | 2018-02-16 17:02 | CONSULT ---
[facility] Psychiatric Consult - Data Date of interview: 02/16/18 Admission source: [facility] Identifying data: Second admission to [facility] for this 52 y/o AA male seeking detox treatment on for alcohol,cannabis and cocaine dependence.Patient is single,a father of one (claimed four dependents in the interview of 09/01/17 ),now undomiciled (recently evicted),unemployed and supported on Public Assistance. Substance Abuse History: Confirmed by patient in this session.Details in current [facility] report : Smoking history: Current every day smoker. Have you smoked in the past 12 months: Yes. Aproximately how many cigarettes per day: 20. Hx Chewing Tobacco Use: No. Initiated information on smoking cessation: Yes. 'Breaking Loose' booklet given: 02/14/18. - Substance & Tx. History. Hx Alcohol Use: Yes (beer and vodka). Hx Substance Use: Yes. Substance Use Type: Alcohol, Cocaine. Hx Substance Use Treatment: Yes. - Substances Abused. Alcohol. Route: Oral. Frequency: Daily. Amount used: 2 pint and 6 pack. Age of first use: 11. Date of Last Use: 02/14/18. Cocaine. Route: Smoking. Frequency: Daily. Amount used: $200-$1000. Age of first use: 26. Date of Last Use: 02/14/18. Marijuana/Hashish. Route: Smoking. Frequency: Daily. Amount used: 4 blunts. Age of first use: 11. Date of Last Use: 02/14/18 Medical History: Chronic lumbar pain (titanium hardware in place),bronchial asthma,hypertension,seizure disorder (substance-related),dyspepsia,herniated disc,past history of surgery for gynecomastia and antecedent of syphilis/ gonorrhea + INH treatment for nine months. Psychiatric History: Patient endorses the diagnosis of Bipolar Disorder.Medicated with seroquel 100 mg po bid + remeron 45 mg/hs.Patient admits to a history of 5-7 psychiatric hospitalizations.Known to [facility].Mr Escobar is still under the care of Dr Silveira,psychiatrist at the [facility] program in the [place].Patient reports history of two suicide attempts (overdose with pills + deliberate jump from a third floor window at age 10). Physical/Sexual Abuse/Trauma History: Patient denies. Additional Comment: Urine Drug Screen Results: THC-Marijuana, EDGARDO-Cocaine, BZO- Benzodiazepines.Noted. Psychiatric Findings - Problem List ([place] 1, 2,3) (1) Alcohol dependence with uncomplicated withdrawal Current Visit: Yes Status: Acute (2) Cocaine dependence, uncomplicated Current Visit: Yes Status: Acute (3) Cannabis dependence Current Visit: Yes Status: Acute (4) Nicotine dependence Current Visit: Yes Status: Acute Qualifiers: Nicotine product type: cigarettes Substance use status: in withdrawal Qualified Code(s): F17.213 - Nicotine dependence, cigarettes, with withdrawal (5) Substance induced mood disorder Current Visit: Yes Status: Acute (6) History of bipolar disorder Current Visit: Yes Status: Acute (7) Insomnia Current Visit: Yes Status: Acute Qualifiers: Insomnia type: unspecified Qualified Code(s): G47.00 - Insomnia, unspecified - Initial Treatment Plan Initial Treatment Plan: Psychoeducation.Sleep hygiene.Detoxification.Medications : seroquel 150 mg po hs + remeron 15 mg po hs.Side effects/benefits of both drugs are discussed with the patient.he agrees with this careplan.Observation.
[2018-02-16] MEDS: chlordiazePOXIDE 5 MG CAPSULE PO SCH ×2 (17:26→22:20)
[2018-02-16] MEDS: MIRTAZAPINE 15 MG TABLET (FP) PO SCH (22:20)
[2018-02-16] MEDS: THIAMINE HCL 100 MG TABLET (FP) PO SCH (22:20)
[2018-02-16] MEDS: MELATONIN 5 MG TABLETS PO PRN (22:20)
[2018-02-16] MEDS: QUEtiapine FUMARATE 100 MG TABLET (FP) PO SCH (22:37)
[2018-02-17] MEDS: IBUPROFEN 600 MG TABLET (FP) PO PRN (03:06)
[2018-02-17] MEDS: chlordiazePOXIDE 5 MG CAPSULE PO SCH ×2 (05:45→10:11)
[2018-02-17] MEDS: CYCLOBENZAPRINE HCL 10 MG TABLET (FP) PO SCH ×3 (05:45→22:13)
[2018-02-17] MEDS: PRENATAL VITAMINS W/ FOLIC ACID TABLET (FP) PO SCH (10:11)
[2018-02-17] MEDS: NICOTINE 21 MG/24 HOURS TOPICAL PATCH TD SCH (10:11)
[2018-02-17] MEDS: ALBUTEROL SO4 18 GM HFA INHALER IH PRN ×3 (10:13→14:56)
--- NOTE | 2018-02-17 10:26 | PN ---
[facility] Progress Note (SOAP) Subjective: PT STATES "I FEEL BETTER TODAY". ALERT O X 3. LESS FATIGUE AND IRRITABILITY. Objective: 02/17/18 10:26 Vital Signs Temperature 98.2 F 02/17/18 09:00 Pulse Rate 81 02/17/18 09:00 Respiratory Rate 18 02/17/18 09:00 Blood Pressure 118/80 02/17/18 09:00 O2 Sat by Pulse Oximetry (%) Laboratory Tests 02/14/18 22:00 Urine Color Ltyellow Urine Appearance Clear Urine pH 6.0 Ur Specific [place] 1.014 Urine Protein 1+ H Urine Glucose (UA) Negative Urine Ketones Negative Urine Blood Negative Urine Nitrite Negative Urine Bilirubin Negative Urine Urobilinogen 2.0 Ur Leukocyte Esterase Negative Urine WBC (Auto) 5 Urine RBC (Auto) <1 Ur Epithelial Cells Rare Assessment: 02/17/18 10:26 WITHDRAWAL SX Plan: CONTINUE DETOX
[2018-02-17] MEDS: chlordiazePOXIDE HCL 10 MG CAPSULE PO SCH ×2 (16:51→22:13)
[2018-02-17] MEDS: THIAMINE HCL 100 MG TABLET (FP) PO SCH (22:13)
[2018-02-17] MEDS: MIRTAZAPINE 15 MG TABLET (FP) PO SCH (22:13)
[2018-02-17] MEDS: QUEtiapine FUMARATE 100 MG TABLET (FP) PO SCH (22:45)
[2018-02-18] MEDS: IBUPROFEN 600 MG TABLET (FP) PO PRN (05:52)
[2018-02-18] MEDS: CYCLOBENZAPRINE HCL 10 MG TABLET (FP) PO SCH (05:53)
[2018-02-18] MEDS: chlordiazePOXIDE HCL 10 MG CAPSULE PO SCH (06:55)
[2018-02-18 09:29] VITALS: BP 135/91; PULSE 89; TEMP 98.2
--- NOTE | 2018-02-18 10:43 | PN ---
[facility] Progress Note (SOAP) Subjective: DETOX COMPLETED. ALERT O X 3. REFERRED TO [facility] FOR REHAB. Objective: 02/18/18 10:41 Vital Signs Temperature 98.2 F 02/18/18 09:28 Pulse Rate 89 02/18/18 09:28 Respiratory Rate 20 02/18/18 09:28 Blood Pressure 135/91 02/18/18 09:28 O2 Sat by Pulse Oximetry (%) Laboratory Last Values Urine Color Ltyellow 02/14/18 22:00 Urine Appearance Clear 02/14/18 22:00 Urine pH 6.0 (5.0-8.0) 02/14/18 22:00 Ur Specific [place] 1.014 (1.001-1.035) 02/14/18 22:00 Urine Protein 1+ (NEGATIVE) H 02/14/18 22:00 Urine Glucose (UA) Negative (NEGATIVE) 02/14/18 22:00 Urine Ketones Negative (NEGATIVE) 02/14/18 22:00 Urine Blood Negative (NEGATIVE) 02/14/18 22:00 Urine Nitrite Negative (NEGATIVE) 02/14/18 22:00 Urine Bilirubin Negative (<2.0 mg/dL) 02/14/18 22:00 Urine Urobilinogen 2.0 mg/dL (0.2-1.0) 02/14/18 22:00 Ur Leukocyte Esterase Negative (NEGATIVE) 02/14/18 22:00 Urine WBC (Auto) 5 /hpf (3-5) 02/14/18 22:00 Urine RBC (Auto) <1 /hpf (0-3) 02/14/18 22:00 Ur Epithelial Cells Rare /HPF (FEW) 02/14/18 22:00 NO FURTHER LABS ON RECORD. PT REFUSED BLOOD DRAWING. Assessment: 02/18/18 10:42 MEDICALLY STABLE Plan: D/C PT TODAY F/U WITH PMD DR. QUINN FOR MEDICAL MANAGEMENT AT [address] [place] [address] NEEDED.
--- NOTE | 2018-02-18 11:03 | DS ---
[facility] Detox Discharge Summary Admission Date: 02/14/18 Discharge Date: 02/18/18 - History Present History: Alcohol Dependence, Cannabis Dependence, Cocaine Dependence Additional Comments: DETOX COMPLETED. ALERT O X 3. NAD. PT STATES HE HAS A PMD DR. QUINN AT [address] [place] [address] FOR MEDICAL MANAGEMENT NEEDED. REPORTS HE HAS APPOINTMENT SET UP FOR NEURO SURGERY ON 02/23/18. PT ENCOURAGED TO ATTEND TO APPOINTMENT. Pertinent Past History: PLEASE SEE DX BELOW - Physical Exam Results Vital Signs: Vital Signs Temperature 98.2 F 02/18/18 09:28 Pulse Rate 89 02/18/18 09:28 Respiratory Rate 20 02/18/18 09:28 Blood Pressure 135/91 02/18/18 09:28 O2 Sat by Pulse Oximetry (%) Pertinent Admission Physical Exam Findings: WITHDRAWAL SX Laboratory Last Values Urine Color Ltyellow 02/14/18 22:00 Urine Appearance Clear 02/14/18 22:00 Urine pH 6.0 (5.0-8.0) 02/14/18 22:00 Ur Specific [place] 1.014 (1.001-1.035) 02/14/18 22:00 Urine Protein 1+ (NEGATIVE) H 02/14/18 22:00 Urine Glucose (UA) Negative (NEGATIVE) 02/14/18 22:00 Urine Ketones Negative (NEGATIVE) 02/14/18 22:00 Urine Blood Negative (NEGATIVE) 02/14/18 22:00 Urine Nitrite Negative (NEGATIVE) 02/14/18 22:00 Urine Bilirubin Negative (<2.0 mg/dL) 02/14/18 22:00 Urine Urobilinogen 2.0 mg/dL (0.2-1.0) 02/14/18 22:00 Ur Leukocyte Esterase Negative (NEGATIVE) 02/14/18 22:00 Urine WBC (Auto) 5 /hpf (3-5) 02/14/18 22:00 Urine RBC (Auto) <1 /hpf (0-3) 02/14/18 22:00 Ur Epithelial Cells Rare /HPF (FEW) 02/14/18 22:00 PT REFUSED LAB DRAWING WHILE IN DETOX. HENCE NO LAB RESULT. - Treatment Hospital Course: Detox Protocol Followed, Detoxed Safely, Responded well, Discharged Condition Good, Rehab Referral Accepted Patient has Accepted a Rehab Referral to: [facility] - Medication Discharge Medications: Ambulatory Orders Mirtazapine [Remeron -] 30 mg PO HS 08/31/17 Quetiapine Fumarate [Seroquel] 100 mg PO BID 08/31/17 Albuterol Sulfate Inhaler - [Ventolin HFA Inhaler -] 2 inh PO Q4H #1 inhaler - Diagnosis (1) Alcohol dependence with uncomplicated withdrawal Status: Acute (2) Cocaine dependence, uncomplicated Status: Acute (3) Nicotine dependence Status: Acute Qualifiers: Nicotine product type: cigarettes Substance use status: in withdrawal Qualified Code(s): F17.213 - Nicotine dependence, cigarettes, with withdrawal (4) Asthma Status: Chronic Qualifiers: Asthma severity: mild Asthma persistence: intermittent Asthma complication type: uncomplicated Qualified Code(s): J45.20 - Mild intermittent asthma, uncomplicated (5) Lumbago Status: Chronic Qualifiers: Chronicity: chronic Back pain laterality: unspecified Sciatica presence: unspecified whether sciatica present Qualified Code(s): M54.5 - Low back pain ; G89.29 - Other chronic pain; G89.29 - Other chronic pain - AMA Did Patient Leave Against Medical Advice: No
== END 2018-02-18 08:45 | disposition home or self-care (01) | DRG 774 ==
LOC: YASAS 14:59 → Y3N 18:22
PROVIDERS: ADMIT Internal Medicine; ATTEND Internal Medicine
PROC: HZ2ZZZZ Detoxification Services for Substance Abuse Treatment (ICD-10-PCS; principal; 2018-02-14)
DX: F10.230 Alcohol dependence with withdrawal, uncomplicated (principal); F14.20 Cocaine dependence, uncomplicated; F12.20 Cannabis dependence, uncomplicated; F17.213 Nicotine dependence, cigarettes, with withdrawal; F19.24 Other psychoactive substance dependence with psychoactive substance-induced mood disorder; F31.9 Bipolar disorder, unspecified; J45.20 Mild intermittent asthma, uncomplicated; G47.00 Insomnia, unspecified; M54.5 Low back pain; G89.29 Other chronic pain; Z86.69 Personal history of other diseases of the nervous system and sense organs; Z91.5 Personal history of self-harm
CPT/HCPCS: 81003; 81015; 93005; 93010; Q0162

== ENCOUNTER 2018-04-26 20:12 | Inpatient (IN) | payer OTHER ==
[2018-04-26 20:37] VITALS: BMI 29.8
--- NOTE | 2018-04-26 20:55 | HP ---
COWS - Scale Resting Pulse: 1= [place] 81-100 Sweatin= Chills/Flushing Restless Observation: 3= Extraneous Movement Pupil Size: 0= Normal to Room Light Bone or Joint Aches: 0= None Runny Nose/ Eye Tearin= None GI Upset > 30mins: 2= Nausea/Diarrhea Tremor Observation: 2= Slight Tremor Visible Yawning Observation: 0= None Anxiety or Irritability: 2=Irritable/Anxious Goose Flesh Skin: 0=Smooth Skin COWS Score: 11 CIWA Score - CIWA Score Nausea/Vomitin-Mild Nausea/No Vomiting Muscle Tremors: 3 Anxiety: 4-Mod. Anxious/Guarded Agitation: 4-Moderately Restless Paroxysmal Sweats: 3 Orientation: 3-Disoriented Date>2 days Tacttile Disturbances: 0-None Auditory Disturbances: 0-None Visual Disturbances: 0-None Headache: 3-Moderate CIWA-Ar Total Score: 21 Admission ROS S - HPI Chief Complaint: C/O WITHDRAWAL SX'S Allergies/Adverse Reactions: Allergies Allergy/AdvReac Type Severity Reaction Status Date / Time No Known Allergies Allergy Verified 04/26/18 20:44 History of Present Illness: 52 Y.O. MALE WITH HX/O ALCOHOLISM, COCAINE DEPENDENCE HERE FOR DETOX. HE IS KNOWN TO THIS PROGRAM. LAST HERE 02/2018. SELF REFERRED. CLIENT IS HERE FOR ALCOHOL DETOX. UTOX + OXY, HE IS ON PAIN MGMT; PERCOCETS 10 MG DAILY VERIFIED FROM ENGINE DESIGNER. LAST PICK AND SHOVEL MAN 2 WEEKS AGO FOR 2 WEEK SUPPLY HIS PRESCRIBER NO LONGER WILL WRITE HIM THE RX HAS. HE REPORTS HE DOES NOT HAVE AN ISSUE WITH PERCOCETS AND DOES NOT WANT METHADONE .UTOX + BENZO DENIES USE. FEELS IT IS CUT WITH THE COCAINE. D/W CLIENT WILL PRESCRIBE CLONIDINE FOR ANY POSSIBLE OPI WITHDRAWAL SX 'S. CLIENT VERBALIZED UNDERSTANDING. LONGEST CLEAN TIME 72 MONTHS. PAST HX OF SEIZURES R/T WITHDRAWAL REPORTS LAST EPISODE 10 YEARS AGO. DENIES SI/HI, A/V HALLUCINATIONS Exam Limitations: No Limitations - Ebola screening Have you traveled outside of the country in the last 21 days: No (NN) Have you had contact with anyone from an Ebola affected area: No Have you been sick,other than usual withdrawal symptoms: No Do you have a fever: No - Review of Systems Constitutional: Chills, Loss of Appetite, Night Sweats, Changes in sleep EENT: reports: Other (LEFT EYE BLINDNESS) Respiratory: reports: No Symptoms reported Cardiac: reports: No Symptoms Reported GI: reports: Nausea, Poor Appetite, Abdominal cramping : reports: No Symptoms Reported Musculoskeletal: reports: Back Pain (CHRONIC) Integumentary: reports: No Symptoms Reported Neuro: reports: Seizure (LAST EPISODE 10 YEARS AGO) Endocrine: reports: No Symptoms Reported Hematology: reports: No Symptoms Reported Psychiatric: reports: Anxious, Depressed Other Systems: Reviewed and Negative Patient History - Patient Medical History Hx Anemia: No Hx Asthma: Yes Hx Chronic Obstructive Pulmonary Disease (COPD): No Hx Cancer: No Hx Cardiac Disorders: No Hx Congestive Heart Failure: No Hx Hypertension: No Hx Hypercholesterolemia: No Hx Pacemaker: No HX Cerebrovascular Accident: No Hx Seizures: Yes (alcohol related in 1979) Hx Dementia: No Hx Diabetes: No Hx Gastrointestinal Disorders: No Hx Liver Disease: No Hx Genitourinary Disorders: No Hx Sexually Transmitted Disorders: No Hx Renal Disease (ESRD): No Hx Thyroid Disease: No Hx Human Immunodeficiency Virus (HIV): No Hx Hepatitis C: No Hx Depression: Yes Hx Suicide Attempt: Yes (jump off the 3rd fl at 10 y/o) Hx Bipolar Disorder: Yes (Seroquel & Remeron) Hx Schizophrenia: No Other Medical History: LUMBAGO - Patient Surgical History Past Surgical History: Yes Hx Breast Surgery: Yes (Gynecomastia) Hx Appendectomy: Yes Hx Cholecystectomy: Yes Anesthesia Reaction: No - PPD History Previous Implant?: Yes Documented Results: Positive w/o proof Implanted On Prior [facility] Admission?: No Results: NEG CXR 08/2017 PPD to be Administered?: No - Smoking Cessation Smoking history: Current every day smoker Have you smoked in the past 12 months: Yes Aproximately how many cigarettes per day: 20 Cigars Per Day: 0 Hx Chewing Tobacco Use: No Initiated information on smoking cessation: Yes 'Breaking Loose' booklet given: 04/26/18 - Substance & Tx. History Hx Alcohol Use: Yes Hx Substance Use: Yes Substance Use Type: Alcohol, Cocaine, Marijuana, Prescribed (PERCOCETS) Hx Substance Use Treatment: Yes ([facility]) - Substances Abused Alcohol Route: Oral Frequency: Daily Amount used: 6 PACK Age of first use: 11 Date of Last Use: 04/26/18 Marijuana/Hashish Route: Smoking Frequency: Daily Amount used: $30 Age of first use: 11 Date of Last Use: 04/26/18 Cocaine Route: Smoking Frequency: 1-2 times per week Amount used: $30 Age of first use: 26 Date of Last Use: 04/26/18 PERCOCETS Route: Oral Frequency: Daily Amount used: 10MG Age of first use: 52 (RX) Date of Last Use: 04/26/18 Family Disease History - Family Disease History Family Disease History: Diabetes: Grandparent, Other: Father (Alcohol), Brother (Marijuana) Admission Physical Exam S - Vital Signs Vital Signs: Vital Signs - 24 hr 04/26/18 04/26/18 20:31 20:34 Temperature 97.0 F L 97.0 F L Pulse Rate 84 84 Respiratory 18 18 Rate Blood Pressure 135/88 135/88 - Physical General Appearance: Yes: Appropriately Dressed, Mild Distress, Tremorous, Anxious HEENTM: Yes: EOMI, Normocephalic, Normal Voice, CATHY, Pharynx Normal, Other ( POOR DENTITION AND MISSING TEETH) Respiratory: Yes: Chest Non-Tender, Lungs Clear, Normal Breath Sounds, No Respiratory Distress, No Accessory Muscle Use Neck: Yes: No masses,lesions,Nodules, Supple, Trachea in good position Breast: Yes: Breast Exam Deferred Cardiology: Yes: Regular Rhythm, Regular Rate, S1, S2 Abdominal: Yes: Non Tender, Soft, Protuberent Genitourinary: Yes: Within Normal Limits Back: Yes: Vertebral Tenderness, Surgical Scar Musculoskeletal: Yes: Gait Steady, Back pain (CHRONIC) Extremities: Yes: Normal Range of Motion, Non-Tender, Tremors (FELT) Neurological: Yes: Alert, Motor Strength 5/5, Confused (TO DATE) Integumentary: Yes: Normal Color, Dry, Warm Lymphatic: Yes: Within Normal Limits - Diagnostic (1) Alcohol dependence with uncomplicated withdrawal Current Visit: Yes Status: Acute (2) Cannabis dependence Current Visit: Yes Status: Chronic (3) Cocaine dependence, uncomplicated Current Visit: Yes Status: Chronic (4) History of bipolar disorder Current Visit: Yes Status: Suspected (5) Insomnia Current Visit: Yes Status: Chronic Qualifiers: Insomnia type: unspecified Qualified Code(s): G47.00 - Insomnia, unspecified (6) Nicotine dependence Current Visit: Yes Status: Chronic Qualifiers: Nicotine product type: cigarettes Substance use status: in withdrawal Qualified Code(s): F17.213 - Nicotine dependence, cigarettes, with withdrawal (7) Substance induced mood disorder Current Visit: Yes Status: Suspected (8) Asthma Current Visit: Yes Status: Chronic Qualifiers: Asthma severity: mild Asthma persistence: intermittent Asthma complication type: uncomplicated Qualified Code(s): J45.20 - Mild intermittent asthma, uncomplicated (9) Lumbago Current Visit: Yes Status: Chronic Qualifiers: Chronicity: chronic Back pain laterality: unspecified Sciatica presence: unspecified whether sciatica present Qualified Code(s): M54.5 - Low back pain ; G89.29 - Other chronic pain (10) Uncomplicated opioid dependence Current Visit: Yes Status: Chronic (11) History of positive PPD Current Visit: Yes Status: Chronic Cleared for Admission [facility] - Detox or Rehab [facility] Level of Care: Medically Managed Detox Regimen/Protocol: Clonidine, Librium Claeared for Rehab Admission: No S Breath Alcohol Content Breath Alcohol Content: 0 Urine Drug Screen - Results Drug Screen Negative: No Urine Drug Screen Results: THC-Marijuana, EDGARDO-Cocaine, BZO-Benzodiazepines, OXY- Oxycodone
[2018-04-26] MEDS ORDERED: P-EPHED 60MG/TRIPROLIDI 2.5MG TABLET PO PRN (21:13)
[2018-04-26] MEDS ORDERED: MENTHOL/PHENOL 1 EACH UD MM PRN (21:13)
[2018-04-26] MEDS ORDERED: MAGNESIUM HYDROX 2400MG/30ML ORAL SUSPENSION 30 ML CUP PO PRN (21:13)
[2018-04-26] MEDS ORDERED: guaiFENesin/D-METHORPHAN HB 10 ML UNIT-DOSE CUPS PO PRN (21:13)
[2018-04-26] MEDS ORDERED: MAG HYDROX/AL HYDROX/SIMETH 30 ML UNIT-DOSE CUP PO PRN (21:13)
[2018-04-26] MEDS ORDERED: LOPERAMIDE HCL 2 MG CAPSULE PO PRN (21:13)
[2018-04-26] MEDS ORDERED: ACETAMINOPHEN 325 MG TABLET (FP) PO PRN (21:13)
[2018-04-26] MEDS ORDERED: MAGNESIUM CITRATE 300 ML BOTTLE PO PRN (21:13)
[2018-04-26] MEDS ORDERED: IBUPROFEN 400 MG TABLET (FP) PO PRN (21:13)
[2018-04-26] MEDS ORDERED: NICOTINE POLACRILEX 2 MG GUM BC PRN (21:13)
[2018-04-26] MEDS ORDERED: MELATONIN 5 MG TABLETS PO PRN (22:00)
[2018-04-26] MEDS: THIAMINE HCL 100 MG TABLET (FP) PO SCH (22:37)
[2018-04-26] MEDS: cloNIDine HCL 0.1 MG TABLET PO PRN (22:37)
[2018-04-26] MEDS: chlordiazePOXIDE HCL 25 MG CAPSULE PO SCH (22:38)
[2018-04-26] MEDS: ALBUTEROL SO4 8 GM HFA INHALER IH SCH (22:41)
[2018-04-26 23:23] LABS: URINE APPEARANCE CLEAR; URINE BILIRUBIN NEGATIVE (<2.0 mg/dL); URINE COLOR STRAW; URINE GLUCOSE (UA) NEGATIVE (NEGATIVE); URINE KETONE NEGATIVE (NEGATIVE); URINE LEUK ESTERASE NEGATIVE (NEGATIVE); URINE NITRITE NEGATIVE (NEGATIVE); URINE PROTEIN NEGATIVE (NEGATIVE)
[2018-04-27] MEDS: ALBUTEROL SO4 8 GM HFA INHALER IH SCH ×6 (01:30→22:41)
[2018-04-27] MEDS ORDERED: ALBUTEROL SO4 8 GM HFA INHALER IH ONE (04:49)
[2018-04-27] MEDS: chlordiazePOXIDE HCL 25 MG CAPSULE PO SCH ×4 (05:14→22:17)
[2018-04-27 09:51] LABS: HEMATOCRIT 35.6 % (35.4-49); HEMOGLOBIN 11.9 GM/dL (11.7-16.9); MCHC 33.5 g/dl (32.0-35.9); MEAN CELL VOLUME 89.6 fl (80-96); MEAN PLT VOLUME 8.7 fl (7.5-11.1); PLATELET COUNT 181 K/MM3 (134-434); RBC 3.97 M/mm3 (4.00-5.60); RDW 14.1 % (11.9-15.9); WHITE BLOOD COUNT 3.7 K/mm3 (4.0-10.0)
[2018-04-27] MEDS: NICOTINE 21 MG/24 HOURS TOPICAL PATCH TD SCH (10:19)
[2018-04-27] MEDS: PRENATAL VITAMINS W/ FOLIC ACID TABLET (FP) PO SCH (10:19)
[2018-04-27 10:25] LABS: CHLORIDE 108 mmol/L (98-107); POTASSIUM 3.9 mmol/L (3.5-5.1); SODIUM 144 mmol/L (136-145)
[2018-04-27 10:35] LABS: ALBUMIN 3.2 g/dl (3.4-5.0); ALK PHOS 66 U/L (45-117); ANION GAP 6 (8-16); BILIRUBIN,TOTAL 0.4 mg/dL (0.2-1.0); BLOOD UREA NITROGEN 8 mg/dL (7-18); CALCIUM 8.5 mg/dL (8.5-10.1); CO2 30 mmol/L (21-32); CREATININE 1.1 mg/dL (0.7-1.3); GLUCOSE,RANDOM 93 mg/dL (74-106); SGOT/AST 12 U/L (15-37); SGPT/ALT 18 U/L (12-78); TOT PROT 6.4 g/dl (6.4-8.2)
--- NOTE | 2018-04-27 11:43 | PN ---
[facility] CIWA - CIWA Score Nausea/Vomitin-No Nausea/No Vomiting Muscle Tremors: 4-Moderate,w/Arms Extend Anxiety: 4-Mod. Anxious/Guarded Agitation: 4-Moderately Restless Paroxysmal Sweats: 1-Minimal Palms Moist Orientation: 0-Oriented Tacttile Disturbances: 3-Moderate Itch/Numb/Burn Auditory Disturbances: 0-None Visual Disturbances: 0-None Headache: 0-None Present CIWA-Ar Total Score: 16 [facility] COWS - Scale Resting Pulse: 0= [place] 80 or Below Sweatin= Chills/Flushing Restless Observation: 3= Extraneous Movement Pupil Size: 2= Moderately Dilated Bone or Joint Aches: 4=Acute Joint/Muscle Pain Runny Nose/ Eye Tearin= Nasal Congestion GI Upset > 30mins: 0= None Tremor Observation of Outstretched Hands: 2= Slight Tremor Visible Yawning Observation: 1= 1-2x During Session Anxiety or Irritability: 2=Irritable/Anxious Goose Flesh Skin: 0=Smooth Skin COWS Score: 16 [facility] Progress Note (SOAP) Subjective: ANXIETY,MUSCLE ACHES/BODY ACHES,CHILLS,SWEATS. Objective: 04/27/18 11:42 Vital Signs 04/27/18 04/27/18 06:00 09:43 Temperature 97.0 F L 98.9 F Pulse Rate 80 62 Respiratory 18 18 Rate Blood Pressure 104/71 100/65 Laboratory Tests 04/26/18 04/27/18 04/27/18 22:07 07:00 07:00 WBC 3.7 L RBC 3.97 L Hgb 11.9 Hct 35.6 MCV 89.6 MCH 30.0 MCHC 33.5 RDW 14.1 Plt Count 181 MPV 8.7 Sodium 144 Potassium 3.9 Chloride 108 H Carbon Dioxide 30 Anion Gap 6 L BUN 8 Creatinine 1.1 Creat Clearance w eGFR > 60 Random Glucose 93 Calcium 8.5 Total Bilirubin 0.4 AST 12 L ALT 18 D Alkaline Phosphatase 66 Total Protein 6.4 Albumin 3.2 L Urine Color Straw Urine Appearance Clear Urine pH 7.0 Ur Specific [place] 1.009 Urine Protein Negative Urine Glucose (UA) Negative Urine Ketones Negative Urine Blood Negative Urine Nitrite Negative Urine Bilirubin Negative Urine Urobilinogen 2.0 Ur Leukocyte Esterase Negative Assessment: 07/16/18 11:42 WITHDRAWAL SX Plan: CONTINUE DETOX MOTRIN PRN
--- NOTE | 2018-04-27 12:33 | CONSULT ---
[facility] Psychiatric Consult - Data Date of interview: 04/27/18 Admission source: [facility] Identifying data: Readmission to [facility] for this 52 y/o AA male seeking detox treatment on for alcohol,cannabis and cocaine dependence.Patient is single,a father of four,domiciled,unemployed and supported on Public Assistance. Substance Abuse History: Confirmed by patient in my interview.Smoking history: Current every day smoker. Have you smoked in the past 12 months: Yes. Aproximately how many cigarettes per day: 20. Cigars Per Day: 0. Hx Chewing Tobacco Use: No. Initiated information on smoking cessation: Yes. 'Breaking Loose' booklet given: 04/26/18. - Substance & Tx. History. Hx Alcohol Use: Yes. Hx Substance Use: Yes. Substance Use Type: Alcohol, Cocaine, Marijuana, Prescribed (PERCOCETS). Hx Substance Use Treatment: Yes ([facility]). - Substances Abused. Alcohol. Route: Oral. Frequency: Daily. Amount used: 6 PACK. Age of first use: 11. Date of Last Use: 04/26/18. Marijuana/Hashish. Route : Smoking. Frequency: Daily. Amount used: $30. Age of first use: 11. Date of Last Use: 04/26/18. Cocaine. Route: Smoking. Frequency: 1-2 times per week. Amount used: $30. Age of first use: 26. Date of Last Use: 04/26/18. * * PERCOCETS. Route: Oral. Frequency: Daily. Amount used: 10MG. Age of first use: 52 (RX). Date of Last Use: 04/26/18 Medical History: No changes in medical profile since my encounter of 02/2018.As follows : chronic lumbar pain (titanium hardware in place),bronchial asthma, hypertension,seizure disorder (substance-related),dyspepsia,herniated disc,left eye blindness,past history of surgery for gynecomastia and antecedent of syphilis/gonorrhea + INH treatment for nine months.Patient ambulates with a rolling walker. Psychiatric History: Diagnosed with Bipolar Disorder.History of multiple psychiatric hospitalizations.Prescribed seroquel 100 mg/hs + remeron 30 mg/ hs.Past admission to [facility].Mr Escobar is still under the care of Dr Silveira,psychiatrist at the [facility] program in the [place].Patient reports history of two suicide attempts (overdose with pills + deliberate jump from a third floor window at age 10). Physical/Sexual Abuse/Trauma History: Patient denies. Additional Comment: Urine Drug Screen Results: THC-Marijuana, EDGARDO-Cocaine, BZO- Benzodiazepines, OXY-Oxycodone.Noted. Mental Status Exam - Mental Status Exam Alert and Oriented to: Time, Place, Person Cognitive Function: Good Patient Appearance: Well Groomed Mood: Nervous, Withdrawn Affect: Mood Congruent Patient Behavior: Fatigued, Cooperative Speech Pattern: Clear, Appropriate Voice Loudness: Normal Thought Process: Goal Oriented Thought Disorder: Not Present Hallucinations: Denies Suicidal Ideation: Denies Homicidal Ideation: Denies Insight/Judgement: Poor Sleep: Poorly, Difficulty falling asleep Appetite: Good Muscle strength/Tone: Normal Gait/Station: Other (uses a walker for ambulation) Psychiatric Findings - Problem List ([place] 1, 2,3) (1) Alcohol dependence with uncomplicated withdrawal Current Visit: Yes Status: Acute (2) Cannabis dependence Current Visit: Yes Status: Acute (3) Cocaine dependence, uncomplicated Current Visit: Yes Status: Acute (4) Nicotine dependence Current Visit: Yes Status: Acute Qualifiers: Nicotine product type: cigarettes Substance use status: in withdrawal Qualified Code(s): F17.213 - Nicotine dependence, cigarettes, with withdrawal (5) Substance induced mood disorder Current Visit: Yes Status: Acute (6) Insomnia Current Visit: Yes Status: Acute Qualifiers: Insomnia type: unspecified Qualified Code(s): G47.00 - Insomnia, unspecified - Initial Treatment Plan Initial Treatment Plan: Psychoeducation.Sleep hygiene.Detoxification in progress.Seroquel 100 mg po hs + remeron 15 mg po hs.Side effects/benefits of both drugs are discussed with the patient.Mr Escobar is in agreement with this careplan.Observation.
--- NOTE | 2018-04-27 13:34 | EKG ---
Test Reason : Blood Pressure : / mmHG Vent. Rate : 086 BPM Atrial Rate : 086 BPM P-R Int : 154 ms QRS Dur : 096 ms QT Int : 376 ms P-R-T Axes : 065 077 070 degrees QTc Int : 449 ms NORMAL SINUS RHYTHM NONSPECIFIC T WAVE ABNORMALITY ABNORMAL ECG WHEN COMPARED WITH ECG OF 14-FEB-2018 19:43, NON-SPECIFIC CHANGE IN ST SEGMENT IN ANTERIOR LEADS Confirmed by BRAIN CAN MD ([id number]) on 04/27/2018 1:33:35 PM Referred By: Confirmed By:BRAIN CAN MD
[2018-04-27] MEDS: chlordiazePOXIDE HCL 25 MG CAPSULE PO PRN (14:00)
[2018-04-27] MEDS: cloNIDine HCL 0.1 MG TABLET PO PRN ×2 (14:03→22:22)
[2018-04-27] MEDS: CYCLOBENZAPRINE HCL 10 MG TABLET (FP) PO PRN ×2 (14:03→22:17)
[2018-04-27] MEDS: THIAMINE HCL 100 MG TABLET (FP) PO SCH (22:17)
[2018-04-27] MEDS: QUEtiapine FUMARATE 100 MG TABLET (FP) PO SCH (22:17)
[2018-04-27] MEDS: MIRTAZAPINE 15 MG TABLET (FP) PO SCH (22:17)
[2018-04-28] MEDS: ALBUTEROL SO4 8 GM HFA INHALER IH SCH ×6 (01:43→22:18)
[2018-04-28] MEDS: chlordiazePOXIDE HCL 25 MG CAPSULE PO SCH ×3 (06:19→17:15)
[2018-04-28] MEDS: NICOTINE 21 MG/24 HOURS TOPICAL PATCH TD SCH (10:17)
[2018-04-28] MEDS: PRENATAL VITAMINS W/ FOLIC ACID TABLET (FP) PO SCH (10:17)
[2018-04-28] MEDS: chlordiazePOXIDE HCL 25 MG CAPSULE PO PRN (10:56)
--- NOTE | 2018-04-28 13:49 | PN ---
S CIWA - CIWA Score Nausea/Vomitin-No Nausea/No Vomiting Muscle Tremors: 4-Moderate,w/Arms Extend Anxiety: 3 Agitation: 4-Moderately Restless Paroxysmal Sweats: 1-Minimal Palms Moist Orientation: 0-Oriented Tacttile Disturbances: 0-None Auditory Disturbances: 0-None Visual Disturbances: 0-None Headache: 2-Mild CIWA-Ar Total Score: 14 [facility] COWS - Scale Resting Pulse: 0= [place] 80 or Below Sweatin= Chills/Flushing Restless Observation: 3= Extraneous Movement Pupil Size: 0= Normal to Room Light Bone or Joint Aches: 4=Acute Joint/Muscle Pain Runny Nose/ Eye Tearin= None GI Upset > 30mins: 0= None Tremor Observation of Outstretched Hands: 2= Slight Tremor Visible Yawning Observation: 1= 1-2x During Session Anxiety or Irritability: 2=Irritable/Anxious Goose Flesh Skin: 0=Smooth Skin COWS Score: 13 S Progress Note (SOAP) Subjective: ANXIETY,SWEATS,MUSCLE ACHES/CRAMPS HEADACHES. Objective: 04/28/18 13:48 Vital Signs 04/28/18 04/28/18 06:23 11:09 Temperature 98.6 F 98.6 F Pulse Rate 71 70 Respiratory 18 18 Rate Blood Pressure 101/61 118/70 Laboratory Tests 04/26/18 04/27/18 04/27/18 22:07 07:00 07:00 WBC 3.7 L RBC 3.97 L Hgb 11.9 Hct 35.6 MCV 89.6 MCH 30.0 MCHC 33.5 RDW 14.1 Plt Count 181 MPV 8.7 Sodium 144 Potassium 3.9 Chloride 108 H Carbon Dioxide 30 Anion Gap 6 L BUN 8 Creatinine 1.1 Creat Clearance w eGFR > 60 Random Glucose 93 Calcium 8.5 Total Bilirubin 0.4 AST 12 L ALT 18 D Alkaline Phosphatase 66 Total Protein 6.4 Albumin 3.2 L Urine Color Straw Urine Appearance Clear Urine pH 7.0 Ur Specific [place] 1.009 Urine Protein Negative Urine Glucose (UA) Negative Urine Ketones Negative Urine Blood Negative Urine Nitrite Negative Urine Bilirubin Negative Urine Urobilinogen 2.0 Ur Leukocyte Esterase Negative RPR Titer 04/27/18 07:00 WBC RBC Hgb Hct MCV MCH MCHC RDW Plt Count MPV Sodium Potassium Chloride Carbon Dioxide Anion Gap BUN Creatinine Creat Clearance w eGFR Random Glucose Calcium Total Bilirubin AST ALT Alkaline Phosphatase Total Protein Albumin Urine Color Urine Appearance Urine pH Ur Specific [place] Urine Protein Urine Glucose (UA) Urine Ketones Urine Blood Urine Nitrite Urine Bilirubin Urine Urobilinogen Ur Leukocyte Esterase RPR Titer Nonreactive Assessment: 04/28/18 13:48 WITHDRAWAL SX Plan: CONTINUE DETOX MOTRIN OR TYLENOL PRN
[2018-04-28] MEDS: cloNIDine HCL 0.1 MG TABLET PO PRN ×2 (14:22→22:16)
[2018-04-28] MEDS: THIAMINE HCL 100 MG TABLET (FP) PO SCH (22:16)
[2018-04-28] MEDS: CYCLOBENZAPRINE HCL 10 MG TABLET (FP) PO PRN (22:16)
[2018-04-28] MEDS: QUEtiapine FUMARATE 100 MG TABLET (FP) PO SCH (22:16)
[2018-04-28] MEDS: MIRTAZAPINE 15 MG TABLET (FP) PO SCH (22:17)
[2018-04-28] MEDS: chlordiazePOXIDE 5 MG CAPSULE PO SCH (22:17)
[2018-04-29] MEDS: ALBUTEROL SO4 8 GM HFA INHALER IH SCH ×3 (02:11→10:45)
[2018-04-29] MEDS: chlordiazePOXIDE 5 MG CAPSULE PO SCH ×3 (06:11→16:53)
[2018-04-29] MEDS: NICOTINE 21 MG/24 HOURS TOPICAL PATCH TD SCH (10:45)
[2018-04-29] MEDS: PRENATAL VITAMINS W/ FOLIC ACID TABLET (FP) PO SCH (10:45)
[2018-04-29] MEDS ORDERED: ALBUTEROL SO4 8 GM HFA INHALER IH PRN (10:50)
[2018-04-29] MEDS ORDERED: ONDANSETRON *ODT* 4 MG TABLET SL PRN (10:55)
--- NOTE | 2018-04-29 12:09 | PN ---
[facility] Progress Note (SOAP) Subjective: ANXIETY,NAUSEA, SWEATS,CHILLS TREMORS. Objective: 04/29/18 12:09 Vital Signs 04/29/18 04/29/18 06:14 09:44 Temperature 97.0 F L 97.1 F L Pulse Rate 87 97 H Respiratory 18 19 Rate Blood Pressure 101/65 119/81 Laboratory Tests 04/26/18 04/27/18 04/27/18 22:07 07:00 07:00 WBC 3.7 L RBC 3.97 L Hgb 11.9 Hct 35.6 MCV 89.6 MCH 30.0 MCHC 33.5 RDW 14.1 Plt Count 181 MPV 8.7 Sodium 144 Potassium 3.9 Chloride 108 H Carbon Dioxide 30 Anion Gap 6 L BUN 8 Creatinine 1.1 Creat Clearance w eGFR > 60 Random Glucose 93 Calcium 8.5 Total Bilirubin 0.4 AST 12 L ALT 18 D Alkaline Phosphatase 66 Total Protein 6.4 Albumin 3.2 L Urine Color Straw Urine Appearance Clear Urine pH 7.0 Ur Specific [place] 1.009 Urine Protein Negative Urine Glucose (UA) Negative Urine Ketones Negative Urine Blood Negative Urine Nitrite Negative Urine Bilirubin Negative Urine Urobilinogen 2.0 Ur Leukocyte Esterase Negative RPR Titer 04/27/18 07:00 WBC RBC Hgb Hct MCV MCH MCHC RDW Plt Count MPV Sodium Potassium Chloride Carbon Dioxide Anion Gap BUN Creatinine Creat Clearance w eGFR Random Glucose Calcium Total Bilirubin AST ALT Alkaline Phosphatase Total Protein Albumin Urine Color Urine Appearance Urine pH Ur Specific [place] Urine Protein Urine Glucose (UA) Urine Ketones Urine Blood Urine Nitrite Urine Bilirubin Urine Urobilinogen Ur Leukocyte Esterase RPR Titer Nonreactive Assessment: 04/29/18 12:09 WITHDRAWAL SX Plan: CONTINUE DETOX
[2018-04-29] MEDS: cloNIDine HCL 0.1 MG TABLET PO PRN ×2 (15:50→22:20)
[2018-04-29] MEDS: chlordiazePOXIDE HCL 25 MG CAPSULE PO PRN (21:05)
[2018-04-29] MEDS: chlordiazePOXIDE HCL 10 MG CAPSULE PO SCH (22:20)
[2018-04-29] MEDS: THIAMINE HCL 100 MG TABLET (FP) PO SCH (22:20)
[2018-04-29] MEDS: QUEtiapine FUMARATE 100 MG TABLET (FP) PO SCH (22:20)
[2018-04-29] MEDS: MIRTAZAPINE 15 MG TABLET (FP) PO SCH (22:20)
[2018-04-29] MEDS: CYCLOBENZAPRINE HCL 10 MG TABLET (FP) PO PRN (22:22)
[2018-04-30] MEDS: chlordiazePOXIDE HCL 10 MG CAPSULE PO SCH (06:13)
[2018-04-30 06:35] VITALS: BP 107/74; PULSE 75; TEMP 97.8
--- NOTE | 2018-04-30 09:11 | PN ---
[facility] Progress Note (SOAP) Subjective: DETOX COMPLETED. ALERT O X 3. NAD. PT PICKED UP BY HIS TRANSPORTATION STATING HE HAS FOLLOW UP APPOINTMENT FOR POST OP BACK SURGERY. Objective: 04/30/18 09:11 Vital Signs 04/30/18 06:34 Temperature 97.8 F Pulse Rate 75 Respiratory 18 Rate Blood Pressure 107/74 Laboratory Tests 04/26/18 04/27/18 04/27/18 22:07 07:00 07:00 WBC 3.7 L RBC 3.97 L Hgb 11.9 Hct 35.6 MCV 89.6 MCH 30.0 MCHC 33.5 RDW 14.1 Plt Count 181 MPV 8.7 Sodium 144 Potassium 3.9 Chloride 108 H Carbon Dioxide 30 Anion Gap 6 L BUN 8 Creatinine 1.1 Creat Clearance w eGFR > 60 Random Glucose 93 Calcium 8.5 Total Bilirubin 0.4 AST 12 L ALT 18 D Alkaline Phosphatase 66 Total Protein 6.4 Albumin 3.2 L Urine Color Straw Urine Appearance Clear Urine pH 7.[address] [place] 1.009 Urine Protein Negative Urine Glucose (UA) Negative Urine Ketones Negative Urine Blood Negative Urine Nitrite Negative Urine Bilirubin Negative Urine Urobilinogen 2.0 Ur Leukocyte Esterase Negative RPR Titer 04/27/18 07:00 WBC RBC Hgb Hct MCV MCH MCHC RDW Plt Count MPV Sodium Potassium Chloride Carbon Dioxide Anion Gap BUN Creatinine Creat Clearance w eGFR Random Glucose Calcium Total Bilirubin AST ALT Alkaline Phosphatase Total Protein Albumin Urine Color Urine Appearance Urine pH Ur Specific [place] Urine Protein Urine Glucose (UA) Urine Ketones Urine Blood Urine Nitrite Urine Bilirubin Urine Urobilinogen Ur Leukocyte Esterase RPR Titer Nonreactive Assessment: 04/30/18 09:11 MEDICALLY STABLE Plan: D/C PT TODAY. FOLLOW UP WITH PMD AT [facility] NEEDED.
--- NOTE | 2018-04-30 09:12 | DS ---
[facility] Detox Discharge Summary Admission Date: 04/26/18 Discharge Date: 04/30/18 - History Present History: Alcohol Dependence, Cannabis Dependence, Cocaine Dependence, Opioid Dependence Additional Comments: DETOX COMPLETED. ALERT O X 3. PT WILL FOLLOW UP WITH PMD AT [facility] NEEDED.. PT REPORTS HAS A POST OP F/U TODAY [id number] [place], [place]. PT WAS PICKED UP BY HIS TRANSPORTATION THIS MORNING. Pertinent Past History: PLEASE SEE DX BELOW - Physical Exam Results Vital Signs: Vital Signs Temperature 97.8 F 04/30/18 06:34 Pulse Rate 75 04/30/18 06:34 Respiratory Rate 18 04/30/18 06:34 Blood Pressure 107/74 04/30/18 06:34 O2 Sat by Pulse Oximetry (%) Pertinent Admission Physical Exam Findings: WITHDRAWAL SX S/P LOWER BACK SX Laboratory Tests 04/26/18 04/27/18 04/27/18 22:07 07:00 07:00 WBC 3.7 L RBC 3.97 L Hgb 11.9 Hct 35.6 MCV 89.6 MCH 30.0 MCHC 33.5 RDW 14.1 Plt Count 181 MPV 8.7 Sodium 144 Potassium 3.9 Chloride 108 H Carbon Dioxide 30 Anion Gap 6 L BUN 8 Creatinine 1.1 Creat Clearance w eGFR > 60 Random Glucose 93 Calcium 8.5 Total Bilirubin 0.4 AST 12 L ALT 18 D Alkaline Phosphatase 66 Total Protein 6.4 Albumin 3.2 L Urine Color Straw Urine Appearance Clear Urine pH 7.0 Ur Specific [place] 1.009 Urine Protein Negative Urine Glucose (UA) Negative Urine Ketones Negative Urine Blood Negative Urine Nitrite Negative Urine Bilirubin Negative Urine Urobilinogen 2.0 Ur Leukocyte Esterase Negative RPR Titer 04/27/18 07:00 WBC RBC Hgb Hct MCV MCH MCHC RDW Plt Count MPV Sodium Potassium Chloride Carbon Dioxide Anion Gap BUN Creatinine Creat Clearance w eGFR Random Glucose Calcium Total Bilirubin AST ALT Alkaline Phosphatase Total Protein Albumin Urine Color Urine Appearance Urine pH Ur Specific [place] Urine Protein Urine Glucose (UA) Urine Ketones Urine Blood Urine Nitrite Urine Bilirubin Urine Urobilinogen Ur Leukocyte Esterase RPR Titer Nonreactive - Treatment Hospital Course: Detox Protocol Followed, Detoxed Safely, Responded well, Discharged Condition Good - Medication Discharge Medications: Ambulatory Orders Mirtazapine [Remeron -] 30 mg PO HS 08/31/17 Quetiapine Fumarate [Seroquel] 100 mg PO BID 08/31/17 Albuterol Sulfate Inhaler - [Ventolin HFA Inhaler -] 2 inh PO Q4H #1 inhaler - Diagnosis (1) Alcohol dependence with uncomplicated withdrawal Status: Acute (2) Asthma Status: Chronic Qualifiers: Asthma severity: mild Asthma persistence: intermittent Asthma complication type: uncomplicated Qualified Code(s): J45.20 - Mild intermittent asthma, uncomplicated (3) Cocaine dependence, uncomplicated Status: Acute (4) Lumbago Status: Chronic Qualifiers: Chronicity: chronic Back pain laterality: unspecified Sciatica presence: unspecified whether sciatica present Qualified Code(s): M54.5 - Low back pain ; G89.29 - Other chronic pain (5) Nicotine dependence Status: Acute Qualifiers: Nicotine product type: cigarettes Substance use status: in withdrawal Qualified Code(s): F17.213 - Nicotine dependence, cigarettes, with withdrawal (6) Cannabis dependence Status: Acute (7) Uncomplicated opioid dependence Status: Acute (8) Walker as ambulation aid Status: Acute (9) History of back surgery Status: Resolved - AMA Did Patient Leave Against Medical Advice: No
== END 2018-04-30 08:19 | disposition home or self-care (01) | DRG 773 ==
LOC: YASAS 20:12 → Y3N 21:29
PROVIDERS: ADMIT Surgery; ATTEND Surgery
PROC: HZ2ZZZZ Detoxification Services for Substance Abuse Treatment (ICD-10-PCS; principal; 2018-04-26)
DX: F11.23 Opioid dependence with withdrawal (principal); F10.230 Alcohol dependence with withdrawal, uncomplicated; F14.20 Cocaine dependence, uncomplicated; F12.20 Cannabis dependence, uncomplicated; F17.213 Nicotine dependence, cigarettes, with withdrawal; F19.24 Other psychoactive substance dependence with psychoactive substance-induced mood disorder; G47.00 Insomnia, unspecified; J45.20 Mild intermittent asthma, uncomplicated; M54.5 Low back pain; G89.29 Other chronic pain; R76.11 Nonspecific reaction to tuberculin skin test without active tuberculosis; R26.89 Other abnormalities of gait and mobility; Z99.89 Dependence on other enabling machines and devices; Z86.59 Personal history of other mental and behavioral disorders
CPT/HCPCS: 36415; 80053; 81003; 85027; 86593; 93005; 93010; J0735

== ENCOUNTER 2018-05-27 13:34 | Inpatient (IN) | payer OTHER ==
[2018-05-27] MEDS ORDERED: MENTHOL/PHENOL 1 EACH UD MM PRN (14:48)
[2018-05-27] MEDS ORDERED: MAGNESIUM CITRATE 300 ML BOTTLE PO PRN (14:48)
[2018-05-27] MEDS ORDERED: P-EPHED 60MG/TRIPROLIDI 2.5MG TABLET PO PRN (14:48)
[2018-05-27] MEDS ORDERED: MAG HYDROX/AL HYDROX/SIMETH 30 ML UNIT-DOSE CUP PO PRN (14:48)
[2018-05-27] MEDS ORDERED: guaiFENesin/D-METHORPHAN HB 10 ML UNIT-DOSE CUPS PO PRN (14:48)
[2018-05-27] MEDS ORDERED: MAGNESIUM HYDROX 2400MG/30ML ORAL SUSPENSION 30 ML CUP PO PRN (14:48)
[2018-05-27] MEDS ORDERED: LOPERAMIDE HCL 2 MG CAPSULE PO PRN (14:48)
[2018-05-27] MEDS ORDERED: ALBUTEROL SO4 0.083% IH SOL 2.5 MG/3 ML VIAL.NEB. NEB PRN (14:50)
--- NOTE | 2018-05-27 14:52 | HP ---
[facility] Rehab Assess/Revision - Admission History Admitted to Rehab from: [facility] Date of Admission to Rehab: 05/27/18 - Findings Detox History & Physical reviewed: Yes Concur with findings: Yes Inpatient Rehab Admission - Initial Determination Are CD services needed?: Yes Free of communicable disease: Yes Not in need of hospitalization: Yes - Rehab Admission Criteria Previous failed treatment: Yes Poor recovery environment: Yes Comorbidities: Yes Lacks judgement: Yes Patient is meeting Inpatient Rehab admission criteria:: Yes
[2018-05-27] MEDS ORDERED: ALBUTEROL SO4 8 GM HFA INHALER IH SCH (15:00)
[2018-05-27 15:08] VITALS: BMI 32.5
[2018-05-27] MEDS ORDERED: ALBUTEROL SO4 8 GM HFA INHALER IH PRN (15:19)
[2018-05-27] MEDS: IBUPROFEN 400 MG TABLET (FP) PO PRN (19:07)
[2018-05-27] MEDS: CYCLOBENZAPRINE HCL 5 MG TABLET PO PRN (21:41)
[2018-05-27] MEDS: THIAMINE HCL 100 MG TABLET (FP) PO SCH (21:41)
[2018-05-27] MEDS ORDERED: CYCLOBENZAPRINE HCL 5 MG TABLET PO SCH (22:00)
[2018-05-27] MEDS: MELATONIN 5 MG TABLETS PO PRN (22:05)
[2018-05-28] MEDS: PRENATAL VITAMINS W/ FOLIC ACID TABLET (FP) PO SCH (09:43)
[2018-05-28] MEDS: CYCLOBENZAPRINE HCL 5 MG TABLET PO PRN (09:45)
[2018-05-28] MEDS: IBUPROFEN 400 MG TABLET (FP) PO PRN ×2 (09:45→15:57)
--- NOTE | 2018-05-28 10:08 | HP ---
Psychiatrist Admission - Data Date of interview: 05/28/18 Admission source: 6N Identifying data: This is the first [facility] admission for this 52 years old single Black male, father of 4 children, unemployed on public assistance, domiciled Medical History: Significant for herniated disc/chronic lumbar pain (titanium hardware in place), bronchial asthma, hypertension, alcohol withdrawal seizure disorder, dyspepsia, left eye blindness, history of treatment for PPD+, syphilis , gonorrhea and surgery for gynecomastia, appendectomy and cholecystectomy. Patient ambulates with a rolling walker. Psychiatric History: Reports being diagnosed with Bipolar Disorder at age 7. Reports of multiple psychiatric hospitalizations at various institutions notably [facility] and [facility] in [place], [facility]) and most recently at [place] late 2017. Reports that up to a week ago, he was receiving psychiatric outpatient services at [facility] and he was prescribed Seroquel 100 mg po BID and Remeron 30 mg/hs. Patient was seen by senior grant writer on while in detox and was prescribed [id number] mg po BID and Remeron 30 mg po HS. Requests to be ordered only Remeron while in rehab. Patient reports history of two suicide attempts (overdose with pills + deliberate jump from a third floor window at age 10). At present reports feeling depressed and sleeping poorly Physical/Sexual Abuse/Trauma History: Denies emotional, physical or sexual abuse as well as DV relationship. No service Additional Comment: Reports history of multiple arrests including felony Vital Signs: Vital Signs - 24 hr 05/28/18 05/28/18 05/28/18 00:30 03:30 06:50 Temperature 98.1 F Pulse Rate 89 Respiratory 18 18 20 Rate Blood Pressure 117/73 Allergies/Adverse Reactions: Allergies Allergy/AdvReac Type Severity Reaction Status Date / Time No Known Allergies Allergy Verified 05/23/18 12:21 Date of last physical exam: 05/23/18 Concur with the findings of this exam: Yes - Substance Abuse/Tx History Hx Alcohol Use: Yes Hx Substance Use: Yes Substance Use Type: Alcohol (Started drinking alcohol at age 11, consumes half a pint of liquor& 3x 24oz of beer daily. Last drank on 05/23/18), Cocaine ( Started smoking crack cocaine at age 26, consumes $100 worth daily. Last smkoed on 05/21/18), Marijuana (Started smoking marijuana at age 8, consumes $20 worth daily. Last smoked on 05/23/18), Tranquilizers (Started using klonopin at age 48 , consumes 2 mg daily. Last used on 05/21/18) Hx Substance Use Treatment: Yes (4 previous inpt detox) Mental Status Exam - Mental Status Exam Alert and Oriented to: Time, Place, Person Cognitive Function: Fair Patient Appearance: Well Groomed Mood: Hopeful, Euthymic Affect: Appropriate Patient Behavior: Cooperative Speech Pattern: Clear Voice Loudness: Normal Thought Process: Intact, Goal Oriented Thought Disorder: Not Present Hallucinations: Denies Suicidal Ideation: Denies Homicidal Ideation: Denies Insight/Judgement: Fair Sleep: Poorly Appetite: Fair Muscle strength/Tone: Normal Gait/Station: Other (Usesa wheelchair as ambulatory aid) Psychiatric Findings - Problem List ([place] 1, 2,3) (1) Alcohol dependence Current Visit: Yes Status: Acute (2) Cocaine dependence Current Visit: Yes Status: Acute (3) Sedative hypnotic or anxiolytic dependence Current Visit: Yes Status: Acute (4) Cannabis dependence Current Visit: No Status: Acute (5) Nicotine dependence Current Visit: No Status: Chronic Qualifiers: Nicotine product type: cigarettes Substance use status: in withdrawal Qualified Code(s): F17.213 - Nicotine dependence, cigarettes, with withdrawal (6) Bipolar disorder Current Visit: No Status: Chronic (7) Substance-induced sleep disorder Current Visit: Yes Status: Acute (8) Asthma Current Visit: No Status: Chronic Qualifiers: Asthma severity: mild Asthma persistence: intermittent Asthma complication type: uncomplicated Qualified Code(s): J45.20 - Mild intermittent asthma, uncomplicated (9) History of positive PPD Current Visit: No Status: Suspected (10) Walker as ambulation aid Current Visit: No Status: Chronic (11) Lumbago Current Visit: No Status: Chronic Qualifiers: Chronicity: chronic Back pain laterality: unspecified Sciatica presence: unspecified whether sciatica present Qualified Code(s): M54.5 - Low back pain ; G89.29 - Other chronic pain (12) History of back surgery Current Visit: No Status: Resolved (13) Blindness of left eye Current Visit: Yes Status: Chronic - Initial Treatment Plan Initial Treatment Plan: 1) Continue Mirtazapine 30 mg po HS. 2) Monitor progress
[2018-05-28] MEDS: CYCLOBENZAPRINE HCL 10 MG TABLET (FP) PO PRN (19:38)
[2018-05-28] MEDS: THIAMINE HCL 100 MG TABLET (FP) PO SCH (21:45)
[2018-05-28] MEDS: MIRTAZAPINE 30 MG TABLET (FP) PO SCH (21:45)
[2018-05-28] MEDS: IBUPROFEN 600 MG TABLET (FP) PO PRN (21:47)
[2018-05-29] MEDS: IBUPROFEN 600 MG TABLET (FP) PO PRN ×3 (06:47→22:14)
[2018-05-29] MEDS: CYCLOBENZAPRINE HCL 10 MG TABLET (FP) PO PRN ×2 (06:48→16:24)
[2018-05-29] MEDS: PRENATAL VITAMINS W/ FOLIC ACID TABLET (FP) PO SCH (09:54)
[2018-05-29] MEDS: hydrOXYzine PAMOATE 50 MG CAPSULE (FP) PO PRN (16:23)
[2018-05-29] MEDS: LIDOCAINE 5% TOPICAL PATCH TP SCH (17:56)
[2018-05-29] MEDS: MIRTAZAPINE 30 MG TABLET (FP) PO SCH (22:13)
[2018-05-29] MEDS: THIAMINE HCL 100 MG TABLET (FP) PO SCH (22:13)
[2018-05-29] MEDS: LIDOCAINE PATCH REMOVAL MC SCH (22:32)
[2018-05-30] MEDS: ACETAMINOPHEN 325 MG TABLET (FP) PO PRN (04:13)
[2018-05-30] MEDS: CYCLOBENZAPRINE HCL 10 MG TABLET (FP) PO PRN ×2 (04:13→17:03)
[2018-05-30] MEDS: LIDOCAINE 5% TOPICAL PATCH TP SCH (10:22)
[2018-05-30] MEDS: PRENATAL VITAMINS W/ FOLIC ACID TABLET (FP) PO SCH (10:22)
[2018-05-30] MEDS: IBUPROFEN 600 MG TABLET (FP) PO PRN ×3 (10:24→22:34)
[2018-05-30] MEDS: hydrOXYzine PAMOATE 50 MG CAPSULE (FP) PO PRN (17:04)
[2018-05-30] MEDS: MIRTAZAPINE 30 MG TABLET (FP) PO SCH (22:30)
[2018-05-30] MEDS: THIAMINE HCL 100 MG TABLET (FP) PO SCH (22:30)
[2018-05-30] MEDS: LIDOCAINE PATCH REMOVAL MC SCH (22:31)
[2018-05-30] MEDS: MELATONIN 5 MG TABLETS PO PRN (22:34)
[2018-05-31] MEDS: IBUPROFEN 600 MG TABLET (FP) PO PRN ×2 (08:30→17:16)
[2018-05-31] MEDS: CYCLOBENZAPRINE HCL 10 MG TABLET (FP) PO PRN ×2 (08:30→22:26)
[2018-05-31] MEDS: LIDOCAINE 5% TOPICAL PATCH TP SCH (10:46)
[2018-05-31] MEDS: PRENATAL VITAMINS W/ FOLIC ACID TABLET (FP) PO SCH (10:46)
[2018-05-31] MEDS: LIDOCAINE PATCH REMOVAL MC SCH (21:53)
[2018-05-31] MEDS: MIRTAZAPINE 30 MG TABLET (FP) PO SCH (21:54)
[2018-05-31] MEDS: THIAMINE HCL 100 MG TABLET (FP) PO SCH (21:54)
[2018-05-31] MEDS: hydrOXYzine PAMOATE 50 MG CAPSULE (FP) PO PRN (22:27)
[2018-05-31] MEDS: MELATONIN 5 MG TABLETS PO PRN (22:27)
[2018-05-31] MEDS ORDERED: ACETAMINOPHEN 325 MG TABLET (FP) PO ONE (22:30)
[2018-06-01] MEDS ORDERED: ALBUTEROL SO4 0.083% IH SOL 2.5 MG/3 ML VIAL.NEB. NEB PRN (07:00)
[2018-06-01] MEDS: LIDOCAINE 5% TOPICAL PATCH TP SCH (10:24)
[2018-06-01] MEDS: PRENATAL VITAMINS W/ FOLIC ACID TABLET (FP) PO SCH (10:25)
[2018-06-01] MEDS: CYCLOBENZAPRINE HCL 10 MG TABLET (FP) PO PRN ×2 (12:18→20:17)
[2018-06-01] MEDS: IBUPROFEN 600 MG TABLET (FP) PO PRN ×2 (12:18→20:17)
[2018-06-01] MEDS: LIDOCAINE PATCH REMOVAL MC SCH (22:11)
[2018-06-01] MEDS: MIRTAZAPINE 30 MG TABLET (FP) PO SCH (22:11)
[2018-06-01] MEDS: THIAMINE HCL 100 MG TABLET (FP) PO SCH (22:11)
[2018-06-01] MEDS: MELATONIN 5 MG TABLETS PO PRN (22:12)
[2018-06-02] MEDS: CYCLOBENZAPRINE HCL 10 MG TABLET (FP) PO PRN (09:53)
[2018-06-02] MEDS: PRENATAL VITAMINS W/ FOLIC ACID TABLET (FP) PO SCH (09:53)
[2018-06-02] MEDS: LIDOCAINE 5% TOPICAL PATCH TP SCH (09:53)
[2018-06-02] MEDS: IBUPROFEN 600 MG TABLET (FP) PO PRN ×2 (09:53→21:50)
[2018-06-02] MEDS: ACETAMINOPHEN 325 MG TABLET (FP) PO PRN ×2 (14:47→19:57)
[2018-06-02] MEDS: THIAMINE HCL 100 MG TABLET (FP) PO SCH (21:47)
[2018-06-02] MEDS: MIRTAZAPINE 30 MG TABLET (FP) PO SCH (21:47)
[2018-06-02] MEDS: hydrOXYzine PAMOATE 50 MG CAPSULE (FP) PO PRN (21:49)
[2018-06-02] MEDS: LIDOCAINE PATCH REMOVAL MC SCH (22:38)
[2018-06-03] MEDS: IBUPROFEN 600 MG TABLET (FP) PO PRN ×2 (09:40→16:11)
[2018-06-03] MEDS: CYCLOBENZAPRINE HCL 10 MG TABLET (FP) PO PRN ×2 (09:40→21:46)
[2018-06-03] MEDS: PRENATAL VITAMINS W/ FOLIC ACID TABLET (FP) PO SCH (09:41)
[2018-06-03] MEDS: LIDOCAINE 5% TOPICAL PATCH TP SCH (09:41)
[2018-06-03] MEDS: LIDOCAINE PATCH REMOVAL MC SCH (21:44)
[2018-06-03] MEDS: BACITRACIN 15 GM TUBE TOPICAL OINTMENT TP SCH (21:44)
[2018-06-03] MEDS: THIAMINE HCL 100 MG TABLET (FP) PO SCH (21:44)
[2018-06-03] MEDS: MIRTAZAPINE 30 MG TABLET (FP) PO SCH (21:45)
[2018-06-04] MEDS: IBUPROFEN 600 MG TABLET (FP) PO PRN ×3 (06:29→22:10)
[2018-06-04] MEDS: CYCLOBENZAPRINE HCL 10 MG TABLET (FP) PO PRN ×2 (06:29→22:10)
[2018-06-04] MEDS: PRENATAL VITAMINS W/ FOLIC ACID TABLET (FP) PO SCH (10:58)
[2018-06-04] MEDS: LIDOCAINE 5% TOPICAL PATCH TP SCH (10:59)
[2018-06-04] MEDS: BACITRACIN 15 GM TUBE TOPICAL OINTMENT TP SCH (11:00)
[2018-06-04] MEDS: hydrOXYzine PAMOATE 50 MG CAPSULE (FP) PO PRN ×2 (17:58→22:10)
[2018-06-04] MEDS: THIAMINE HCL 100 MG TABLET (FP) PO SCH (22:08)
[2018-06-04] MEDS: MIRTAZAPINE 30 MG TABLET (FP) PO SCH (22:08)
[2018-06-04] MEDS: MELATONIN 5 MG TABLETS PO PRN (22:10)
[2018-06-05] MEDS: LIDOCAINE PATCH REMOVAL MC SCH ×2 (00:25→22:22)
[2018-06-05] MEDS: PRENATAL VITAMINS W/ FOLIC ACID TABLET (FP) PO SCH (09:34)
[2018-06-05] MEDS: LIDOCAINE 5% TOPICAL PATCH TP SCH (09:35)
[2018-06-05] MEDS: IBUPROFEN 600 MG TABLET (FP) PO PRN ×2 (09:36→21:01)
[2018-06-05] MEDS: CYCLOBENZAPRINE HCL 10 MG TABLET (FP) PO PRN ×2 (09:36→21:01)
[2018-06-05] MEDS: BACITRACIN 15 GM TUBE TOPICAL OINTMENT TP SCH (09:37)
[2018-06-05] MEDS ORDERED: PT OWN MED DRAWER 7, Y5N ONE (14:57)
[2018-06-05] MEDS: MELATONIN 5 MG TABLETS PO PRN (21:00)
[2018-06-05] MEDS: THIAMINE HCL 100 MG TABLET (FP) PO SCH (21:01)
[2018-06-05] MEDS: MIRTAZAPINE 30 MG TABLET (FP) PO SCH (21:01)
[2018-06-05] MEDS: hydrOXYzine PAMOATE 50 MG CAPSULE (FP) PO PRN (21:02)
[2018-06-06] MEDS ORDERED: ALBUTEROL SO4 0.083% IH SOL 2.5 MG/3 ML VIAL.NEB. NEB PRN (07:04)
[2018-06-06] MEDS: PRENATAL VITAMINS W/ FOLIC ACID TABLET (FP) PO SCH (10:52)
[2018-06-06] MEDS: LIDOCAINE 5% TOPICAL PATCH TP SCH (10:52)
[2018-06-06] MEDS: BACITRACIN 15 GM TUBE TOPICAL OINTMENT TP SCH (10:52)
[2018-06-06] MEDS: IBUPROFEN 600 MG TABLET (FP) PO PRN (17:58)
[2018-06-06] MEDS: CYCLOBENZAPRINE HCL 10 MG TABLET (FP) PO PRN (17:58)
[2018-06-06] MEDS: LIDOCAINE PATCH REMOVAL MC SCH (21:12)
[2018-06-06] MEDS: THIAMINE HCL 100 MG TABLET (FP) PO SCH (21:12)
[2018-06-06] MEDS: MIRTAZAPINE 30 MG TABLET (FP) PO SCH (21:12)
[2018-06-06] MEDS: hydrOXYzine PAMOATE 50 MG CAPSULE (FP) PO PRN (21:13)
[2018-06-07] MEDS: IBUPROFEN 600 MG TABLET (FP) PO PRN ×2 (06:49→17:37)
[2018-06-07] MEDS: CYCLOBENZAPRINE HCL 10 MG TABLET (FP) PO PRN ×2 (06:49→17:37)
[2018-06-07] MEDS ORDERED: PT OWN MED DRAWER 7, Y5N ONE (08:29)
[2018-06-07] MEDS: PRENATAL VITAMINS W/ FOLIC ACID TABLET (FP) PO SCH (10:57)
[2018-06-07] MEDS: BACITRACIN 15 GM TUBE TOPICAL OINTMENT TP SCH (10:57)
[2018-06-07] MEDS: LIDOCAINE 5% TOPICAL PATCH TP SCH (10:57)
[2018-06-07] MEDS: hydrOXYzine PAMOATE 50 MG CAPSULE (FP) PO PRN ×2 (17:37→22:10)
[2018-06-07] MEDS: THIAMINE HCL 100 MG TABLET (FP) PO SCH (21:11)
[2018-06-07] MEDS: MIRTAZAPINE 30 MG TABLET (FP) PO SCH (21:11)
[2018-06-07] MEDS: LIDOCAINE PATCH REMOVAL MC SCH (22:07)
[2018-06-08] MEDS: CYCLOBENZAPRINE HCL 10 MG TABLET (FP) PO PRN ×3 (06:34→21:43)
[2018-06-08] MEDS: IBUPROFEN 600 MG TABLET (FP) PO PRN ×3 (06:34→21:43)
[2018-06-08] MEDS: LIDOCAINE 5% TOPICAL PATCH TP SCH (10:08)
[2018-06-08] MEDS: PRENATAL VITAMINS W/ FOLIC ACID TABLET (FP) PO SCH (10:08)
[2018-06-08] MEDS: BACITRACIN 15 GM TUBE TOPICAL OINTMENT TP SCH (10:09)
[2018-06-08] MEDS: hydrOXYzine PAMOATE 50 MG CAPSULE (FP) PO PRN (21:43)
[2018-06-08] MEDS: MIRTAZAPINE 30 MG TABLET (FP) PO SCH (21:43)
[2018-06-08] MEDS: THIAMINE HCL 100 MG TABLET (FP) PO SCH (21:44)
[2018-06-08] MEDS: LIDOCAINE PATCH REMOVAL MC SCH (21:56)
[2018-06-09] MEDS: IBUPROFEN 600 MG TABLET (FP) PO PRN ×2 (06:34→15:06)
[2018-06-09] MEDS: CYCLOBENZAPRINE HCL 10 MG TABLET (FP) PO PRN ×3 (06:35→21:50)
[2018-06-09 06:42] VITALS: BP 114/75; PULSE 82; TEMP 98.2
[2018-06-09] MEDS: BACITRACIN 15 GM TUBE TOPICAL OINTMENT TP SCH (10:25)
[2018-06-09] MEDS: LIDOCAINE 5% TOPICAL PATCH TP SCH (10:25)
[2018-06-09] MEDS: PRENATAL VITAMINS W/ FOLIC ACID TABLET (FP) PO SCH (10:25)
--- NOTE | 2018-06-09 11:16 | PN ---
S Progress Note Note: Psychiatric nurse practitioner note: Call received by RN stating patient was requesting to leave two days early. Childhood Development Teacher able to meet with patient. Pt. able to appropriately voice his frustrations about the unit. Stating his peers are disrespectful and immature. Pt currently unsure if he will remain on unit but at the moment has decided to continue rehab. Will continue to monitor.
[2018-06-09] MEDS: hydrOXYzine PAMOATE 50 MG CAPSULE (FP) PO PRN (21:50)
[2018-06-09] MEDS: MIRTAZAPINE 30 MG TABLET (FP) PO SCH (21:50)
[2018-06-09] MEDS: THIAMINE HCL 100 MG TABLET (FP) PO SCH (21:50)
[2018-06-09] MEDS: LIDOCAINE PATCH REMOVAL MC SCH (21:51)
[2018-06-10] MEDS: CYCLOBENZAPRINE HCL 10 MG TABLET (FP) PO PRN (07:19)
[2018-06-10] MEDS: IBUPROFEN 600 MG TABLET (FP) PO PRN (07:19)
[2018-06-10] MEDS: LIDOCAINE 5% TOPICAL PATCH TP SCH (09:30)
[2018-06-10] MEDS: BACITRACIN 15 GM TUBE TOPICAL OINTMENT TP SCH (09:30)
[2018-06-10] MEDS: PRENATAL VITAMINS W/ FOLIC ACID TABLET (FP) PO SCH (09:31)
--- NOTE | 2018-06-10 09:32 | PN ---
Psychiatric Progress Note Vital Signs: Vital Signs Period Temp Pulse Resp BP Sys/Silva Pulse Ox Last 24 Hr Date of Session: 06/10/18 Chief Complaint:: "Discharge" HPI: Patient was admitted to [facility] for alcohol dependence. ROS: Significant for herniated disc/chronic lumbar pain (titanium hardware in place), bronchial asthma, hypertension, alcohol withdrawal seizure disorder, dyspepsia, left eye blindness, history of treatment for PPD+, syphilis, gonorrhea and surgery for gynecomastia, appendectomy and cholecystectomy Current Medications: Active Medications Generic Name Dose Route Start Last Admin Trade Name Freq PRN Reason Stop Dose Admin Acetaminophen 650 mg 05/27/18 14:48 06/02/18 19:57 Tylenol - PO 650 mg Q4H PRN Administration FEVER Al Hydroxide/Mg Hydroxide 30 ml 05/27/18 14:48 05/30/18 04:15 Mylanta Oral Suspension - PO 30 ml Q6H PRN Administration DYSPEPSIA Albuterol Sulfate 2 puff 05/27/18 15:19 Ventolin Hfa Inhaler - IH Q4H PRN WHEEZING Albuterol Sulfate 1 amp 06/06/18 07:04 Ventolin 0.083% Nebulizer Soln - NEB Q6H PRN SHORT OF BREATH/WHEEZING Bacitracin 1 applic 06/03/18 20:45 06/10/18 09:30 Bacitracin - TP 1 applic DAILY FABIAN Administration Cyclobenzaprine HCl 10 mg 05/28/18 15:59 06/10/18 07:19 Flexeril - PO 10 mg TID PRN Administration MUSCLE SPASMS Eucalyptus/Menthol/Phenol/Sorbitol 1 each 05/27/18 14:48 Cepastat Lozenge - MM Q4H PRN SORE THROAT Guaifenesin 10 ml 05/27/18 14:48 Robitussin Dm - PO Q6H PRN COUGH Hydroxyzine Pamoate 50 mg 05/27/18 14:48 06/09/18 21:50 Vistaril - PO 50 mg Q4H PRN Administration AGITATION Ibuprofen 600 mg 05/28/18 15:59 06/10/18 07:19 Motrin - PO 600 mg TID PRN Administration PAIN LEVEL 6-10 Lidocaine 1 patch 05/29/18 16:45 06/10/18 09:30 Lidoderm Patch - TP Not Given DAILY FABIAN Loperamide HCl 4 mg 05/27/18 14:48 Imodium - PO Q6H PRN DIARRHEA Magnesium Citrate 300 ml 05/27/18 14:48 Citroma - PO Q48H PRN CONSTIPATION Magnesium Hydroxide 30 ml 05/27/18 14:48 Milk Of Magnesia - PO DAILY PRN CONSTIPATION Melatonin 5 mg 05/27/18 22:00 06/05/18 21:00 Melatonin PO 5 mg HS PRN Administration INSOMNIA Mirtazapine 30 mg 05/28/18 22:00 06/09/18 21:50 Remeron - PO 30 mg HS FABIAN Administration Miscellaneous 1 each 05/29/18 22:00 06/09/18 21:51 Lidoderm Patch Removal MC 1 each DAILY@2200 FABIAN Administration Multivit/Folic Acid/Iron 1 tab 05/28/18 10:00 06/10/18 09:31 Vitamins (Sjr) - PO Not Given DAILY FABIAN Pseudoephedrine/Triprolidine 1 combo 05/27/18 14:48 Actifed - PO TID PRN NASAL CONGESTION Thiamine HCl 100 mg 05/27/18 22:00 06/09/18 21:50 Vitamin B1 - PO 100 mg HS FABIAN Administration Medication(s) Change(s): No. Current Side Effect: No Lab tests ordered: No Lab tests reviewed: Yes Provider note:: Patient able to complete the rehabilitation program on 06/10/18. He has met his treatment goals and is able to identify behaviors that contribute to relapsing. Through participation of this program patient has learned the importance of changing his behaviors and the need for more structure in his life. Pt. responsed well to mirtzapine 30mg qhs and a 30 day supply was electronically sent to patient's pharmacy at [facility] at [address] [place] [address]. Pt will continue to address his issues at the [facility] outpatient clinic. Pt. is stable for discharge on 06/10/18. Total face to face time:: 35 Mental Status Exam - Mental Status Exam Alert and Oriented to: Time, Place, Person Cognitive Function: Good Patient Appearance: Well Groomed Mood: Hopeful Affect: Appropriate, Mood Congruent Patient Behavior: Appropriate, Cooperative Speech Pattern: Clear, Appropriate Voice Loudness: Normal Thought Process: Intact, Goal Oriented Thought Disorder: Not Present Hallucinations: Denies Suicidal Ideation: Denies Homicidal Ideation: Denies Insight/Judgement: Good Sleep: Well Appetite: Good Muscle strength/Tone: Normal Gait/Station: Normal Psychiatric Treatment Plan - Problem List (1) Alcohol dependence Current Visit: Yes (2) Cocaine dependence Current Visit: Yes (3) Sedative hypnotic or anxiolytic dependence Current Visit: Yes (4) Substance-induced sleep disorder Current Visit: Yes (5) Bipolar disorder Current Visit: No (6) Cannabis dependence Current Visit: No
== END 2018-06-10 10:25 | disposition home or self-care (01) | DRG 772 ==
LOC: YASAS 13:34 → Y3W 13:38 → Y6N 22:09 → Y3W 22:11
PROVIDERS: ADMIT Psychiatry & Neurology Psychiatry; ATTEND Psychiatry & Neurology Psychiatry
PROC: HZ42ZZZ Group Counseling for Substance Abuse Treatment, Cognitive-Behavioral (ICD-10-PCS; principal; 2018-05-27)
DX: F10.20 Alcohol dependence, uncomplicated (principal); F13.20 Sedative, hypnotic or anxiolytic dependence, uncomplicated; F14.20 Cocaine dependence, uncomplicated; F12.20 Cannabis dependence, uncomplicated; F17.213 Nicotine dependence, cigarettes, with withdrawal; F31.9 Bipolar disorder, unspecified; F19.282 Other psychoactive substance dependence with psychoactive substance-induced sleep disorder; F25.9 Schizoaffective disorder, unspecified; J45.20 Mild intermittent asthma, uncomplicated; R76.11 Nonspecific reaction to tuberculin skin test without active tuberculosis; H54.40 Blindness, one eye, unspecified eye; M54.5 Low back pain; G89.29 Other chronic pain; R26.2 Difficulty in walking, not elsewhere classified; Z99.89 Dependence on other enabling machines and devices; Z98.890 Other specified postprocedural states

== ENCOUNTER 2018-08-05 13:49 | Inpatient (IN) | payer OTHER ==
[2018-08-05 16:00] VITALS: BMI 32.5
--- NOTE | 2018-08-05 18:28 | HP ---
CIWA Score - CIWA Score Nausea/Vomitin Muscle Tremors: 2 Anxiety: 2 Agitation: 3 Paroxysmal Sweats: 2 Orientation: 0-Oriented Tacttile Disturbances: 1-Very Mild Itch/Numbness Auditory Disturbances: 0-None Visual Disturbances: 1-Very Mild Sensitivity Headache: 2-Mild CIWA-Ar Total Score: 16 Admission ROS S - [facility] Chief Complaint: alcohol withdrawal symptoms Allergies/Adverse Reactions: Allergies Allergy/AdvReac Type Severity Reaction Status Date / Time No Known Allergies Allergy Verified 08/05/18 17:02 History of Present Illness: 52 yo male with hx alcohol and cocaine dependence is here seeking detox, this is one of multiple admissions. Last detox and rehab at [facility] 05/23/18 -06/10/18. PMHX: asthma, chronic back pain, schizophrenia and depression. Denies suicidal / homicidal ideation. Denies hx of seizures or blackouts. Patient prescribed percocet for back pain - aware he cannot receive it here, and alternatives will be provided. #: [id number] Patient Name: Phil Escobar Date: 1965 Address: [address] [place] [address] Sex: Male Rx Written Rx Dispensed Drug Quantity Days Supply Prescriber Name 07/13/2018 07/15/2018 oxycodone-acetaminophen 10-325 mg tab 60 30 RancesSharad 06/17/2018 06/17/2018 oxycodone-acetaminophen 10-325 mg tab 60 30 RancesSharad Patient Name: Phil Escobar Date: 1965 Address: [address] [place] [address] Sex: Male Rx Written Rx Dispensed Drug Quantity Days Supply Prescriber Name 05/13/2018 05/13/2018 oxycodone-acetaminophen 10-325 mg tab 60 30 Rances, Sharad Lamb 04/13/2018 04/14/2018 oxycodone-acetaminophen 10-325 mg tab 30 15 Rances, Sharad Lamb 03/18/2018 03/18/2018 oxycodone-acetaminophen 10-325 mg tab 30 15 Rances, hSarad Lamb 02/12/2018 02/12/2018 oxycodone-acetaminophen 10-325 mg tab 30 15 Rances, Sharad Lamb 01/29/2018 01/29/2018 oxycodone-acetaminophen 10-325 mg tab 30 15 RancesSharad 01/15/2018 01/15/2018 oxycodone-acetaminophen 10-325 mg tab 30 15 Sharad Meeks R 01/01/2018 01/01/2018 oxycodone-acetaminophen 10-325 mg tab 30 15 Sharad Meeks R 08/18/2017 08/18/2017 oxycodone-acetaminophen 5-325 mg tab 4 1 Annalisa Phelps) Patient Name: Phil Escobar Date: 1965 Address: [address] [place] [address] Sex: Male Rx Written Rx Dispensed Drug Quantity Days Supply Prescriber Name 03/16/2018 03/16/2018 oxycodone-acetaminophen 5-325 mg tab 5 2 Mell Monge Exam Limitations: No Limitations - Ebola screening Have you traveled outside of the country in the last 21 days: No Have you had contact with anyone from an Ebola affected area: No Have you been sick,other than usual withdrawal symptoms: No Do you have a fever: No - Review of Systems Constitutional: Chills, Loss of Appetite, Changes in sleep, Unintentional Wgt. Loss EENT: reports: No Symptoms Reported Respiratory: reports: No Symptoms reported Cardiac: reports: No Symptoms Reported GI: reports: Nausea, Poor Appetite, Poor Fluid Intake, Indigestion : reports: No Symptoms Reported Musculoskeletal: reports: Back Pain Neuro: reports: See HPI, Headache Endocrine: reports: Increased Thirst Hematology: reports: No Symptoms Reported Psychiatric: reports: Orientated x3, Depressed Other Systems: Reviewed and Negative Patient History - Patient Medical History Hx Anemia: No Hx Asthma: Yes Hx Chronic Obstructive Pulmonary Disease (COPD): No Hx Cancer: No Hx Cardiac Disorders: No Hx Congestive Heart Failure: No Hx Hypertension: No Hx Hypercholesterolemia: No Hx Pacemaker: No HX Cerebrovascular Accident: No Hx Seizures: Yes (seizure r/ t alcohol last episode last 1979) Hx Dementia: No Hx Diabetes: No Hx Gastrointestinal Disorders: No Hx Liver Disease: No Hx Genitourinary Disorders: No Hx Sexually Transmitted Disorders: Yes (complted tx) Hx Renal Disease (ESRD): No Hx Thyroid Disease: No Hx Human Immunodeficiency Virus (HIV): No Hx Hepatitis C: No Hx Depression: Yes Hx Suicide Attempt: No Hx Bipolar Disorder: Yes (Seroquel & Remeron) Hx Schizophrenia: Yes - Patient Surgical History Past Surgical History: Yes Hx Neurologic Surgery: No Hx Cataract Extraction: No Hx Cardiac Surgery: No Hx Lung Surgery: No Hx Breast Surgery: Yes (Gynecomastia) Hx Breast Biopsy: No Hx Abdominal Surgery: No Hx Appendectomy: Yes (1977) Hx Cholecystectomy: Yes (2016) Hx Genitourinary Surgery: No Hx Section: No Hx Orthopedic Surgery: No Anesthesia Reaction: No - PPD History Previous Implant?: No Documented Results: Positive w/o proof Results: NEG CXR 08/2017 PPD to be Administered?: No - Smoking Cessation Smoking history: Current every day smoker Have you smoked in the past 12 months: Yes Aproximately how many cigarettes per day: 5 Cigars Per Day: 0 Hx Chewing Tobacco Use: No Initiated information on smoking cessation: Yes 'Breaking Loose' booklet given: 08/05/18 - Substance & Tx. History Hx Alcohol Use: Yes Hx Substance Use: Yes Substance Use Type: Alcohol Hx Substance Use Treatment: Yes ([facility] detox and rehab 05/23/18 -06/10/18) - Substances Abused Alcohol Route: Oral Frequency: Daily Amount used: LIQUOR- 2 PINTS, BEER- 1 SIX PACK Age of first use: 10 Date of Last Use: 08/05/18 Family Disease History - Family Disease History Family Disease History: Diabetes: Grandparent, Mother (, heroin/cocaine/) , Sister (three - living - etoh), Heart Disease: Mother, Sister, Other: Father ( , Alcohol), Mother, Brother (two living - Marijuana, one mentally ill), Sister, Son (three), Daughter (one) Admission Physical Exam [facility] - Vital Signs Vital Signs: Vital Signs - 24 hr 08/05/18 15:57 Temperature 97.9 F Pulse Rate 97 H Respiratory 18 Rate Blood Pressure 137/88 - Physical General Appearance: Yes: Disheveled, Moderate Distress, Obese, Sweating, Anxious HEENTM: Yes: EOMI, Hearing grossly Normal, Normal ENT Inspection, Normocephalic , Normal Voice, CATHY, Pharynx Normal, Tm's normal Respiratory: Yes: Chest Non-Tender, Lungs Clear, Normal Breath Sounds, No Respiratory Distress, No Accessory Muscle Use Neck: Yes: Within Normal Limits Breast: Yes: Breast Exam Deferred Abdominal: Yes: Normal Bowel Sounds, Non Tender Genitourinary: Yes: Within Normal Limits Back: Yes: Normal Inspection Musculoskeletal: Yes: full range of Motion, Gait Steady, Pelvis Stable, Back pain Extremities: Yes: Normal Capillary Refill, Normal Inspection, Normal Range of Motion, Non-Tender Neurological: Yes: head charrer II-XII NML intact, Fully Oriented, Alert, Motor Strength 5/5, Depressed Affect Integumentary: Yes: Normal Color, Warm, Diaphoresis Lymphatic: Yes: Within Normal Limits - Diagnostic (1) Cannabis dependence Current Visit: Yes Status: Acute (2) Alcohol dependence with uncomplicated withdrawal Current Visit: Yes Status: Chronic (3) Asthma Current Visit: Yes Status: Chronic Qualifiers: Asthma severity: mild Asthma persistence: intermittent Asthma complication type: uncomplicated Qualified Code(s): J45.20 - Mild intermittent asthma, uncomplicated (4) Lumbago Current Visit: Yes Status: Chronic Qualifiers: Chronicity: chronic Back pain laterality: unspecified Sciatica presence: unspecified whether sciatica present Qualified Code(s): M54.5 - Low back pain ; G89.29 - Other chronic pain (5) Nicotine dependence Current Visit: Yes Status: Chronic Qualifiers: Nicotine product type: cigarettes Substance use status: in withdrawal Qualified Code(s): F17.213 - Nicotine dependence, cigarettes, with withdrawal (6) Walker as ambulation aid Current Visit: No Status: Chronic (7) History of positive PPD Current Visit: Yes Status: Suspected (8) Psychiatric disorder Current Visit: Yes Status: Suspected Cleared for Admission [facility] - Detox or Rehab [facility] Level of Care: Medically Managed Detox Regimen/Protocol: Librium [facility] Breath Alcohol Content Breath Alcohol Content: 0.023 Urine Drug Screen - Results Drug Screen Negative: No Urine Drug Screen Results: EDGARDO-Cocaine
[2018-08-05] MEDS ORDERED: LOPERAMIDE HCL 2 MG CAPSULE PO PRN (18:32)
[2018-08-05] MEDS ORDERED: NICOTINE POLACRILEX 2 MG GUM BUC PRN (18:32)
[2018-08-05] MEDS ORDERED: guaiFENesin/D-METHORPHAN HB 10 ML UNIT-DOSE CUPS PO PRN (18:32)
[2018-08-05] MEDS ORDERED: hydrOXYzine PAMOATE 50 MG CAPSULE (FP) PO PRN (18:32)
[2018-08-05] MEDS ORDERED: ACETAMINOPHEN 325 MG TABLET (FP) PO PRN (18:32)
[2018-08-05] MEDS ORDERED: MAGNESIUM CITRATE 300 ML BOTTLE PO PRN (18:32)
[2018-08-05] MEDS ORDERED: ALBUTEROL SO4 0.083% IH SOL 2.5 MG/3 ML VIAL.NEB. NEB PRN (18:32)
[2018-08-05] MEDS ORDERED: MENTHOL/PHENOL 1 EACH UD MM PRN (18:32)
[2018-08-05] MEDS ORDERED: MAGNESIUM HYDROX 2400MG/30ML ORAL SUSPENSION 30 ML CUP PO PRN (18:32)
[2018-08-05] MEDS ORDERED: P-EPHED 60MG/TRIPROLIDI 2.5MG TABLET PO PRN (18:32)
[2018-08-05] MEDS ORDERED: MAG HYDROX/AL HYDROX/SIMETH 30 ML UNIT-DOSE CUP PO PRN (18:32)
[2018-08-05] MEDS ORDERED: ALBUTEROL SO4 8 GM HFA INHALER IH SCH (18:45)
[2018-08-05] MEDS ORDERED: ALBUTEROL SO4 8 GM HFA INHALER IH PRN (18:45)
[2018-08-05] MEDS: chlordiazePOXIDE HCL 25 MG CAPSULE PO PRN (21:05)
[2018-08-05] MEDS ORDERED: MELATONIN 5 MG TABLETS PO PRN (22:00)
[2018-08-05] MEDS: chlordiazePOXIDE HCL 25 MG CAPSULE PO SCH (22:18)
[2018-08-05] MEDS: THIAMINE HCL 100 MG TABLET (FP) PO SCH (22:19)
[2018-08-05] MEDS: IBUPROFEN 400 MG TABLET (FP) PO PRN (22:20)
[2018-08-06] MEDS: chlordiazePOXIDE HCL 25 MG CAPSULE PO SCH ×4 (06:17→22:09)
--- NOTE | 2018-08-06 07:44 | CONSULT ---
[facility] Psychiatric Consult - Data Date of interview: 08/06/18 Admission source: [facility] Identifying data: This is a 52 years old male, ambulating with walker, single, unemployed, living alone, on PA support, with psychiatric hospitalization history, history of Bipolar Disorder, with hstory of alcohol and cocaine dependence is here seeking detox reporting withdrawal symptoms. Substance Abuse History: Smoking history: Current every day smoker. Have you smoked in the past 12 months: Yes. Aproximately how many cigarettes per day: 5. Cigars Per Day: 0. Hx Chewing Tobacco Use: No. Initiated information on smoking cessation: Yes. 'Breaking Loose' booklet given: 08/05/18. - Substance & Tx. History. Hx Alcohol Use: Yes. Hx Substance Use: Yes. Substance Use Type : Alcohol. Hx Substance Use Treatment: Yes ([facility] detox and rehab 05/23/18 -). - Substances Abused. Alcohol. Route: Oral. Frequency: Daily. Amount used: LIQUOR- 2 PINTS, BEER- 1 SIX PACK. Age of first use: 10. Date of Last Use: 08/05/18 Medical History: Asthma, LBP, S/P lower back surgery, ambulating with walker, PPD+ history, Left eye blindness history, Psychiatric History: Asv per chart patient carries Shizoaffective disorder, Bipolar Disorder, reports most recent psychiatric admission on more then 10 years ago, denies suicidal, homicidal history, reports currently taking: Remeron 30mg po qhs. Seroquel 100mg po bid Physical/Sexual Abuse/Trauma History: Denies Additional Comment: Remeron 30mg po qhs. Seroquel 100mg po bid Mental Status Exam - Mental Status Exam Alert and Oriented to: Person Cognitive Function: Fair Patient Appearance: Unkempt Mood: Anxious Affect: Mood Congruent Patient Behavior: Cooperative Speech Pattern: Appropriate Voice Loudness: Mildly Soft/Quiet Thought Process: Goal Oriented Thought Disorder: Being Controlled Hallucinations: Denies Suicidal Ideation: Denies Homicidal Ideation: Denies Insight/Judgement: Fair Sleep: Difficulty falling asleep Appetite: Weight loss Muscle strength/Tone: Mild Hypotonicity Gait/Station: Deferred Additional Comments: Remeron 30mg po qhs. Seroquel 100mg po bid Psychiatric Findings - Problem List ([place] 1, 2,3) (1) Cannabis dependence Current Visit: Yes Status: Acute (2) Alcohol dependence with uncomplicated withdrawal Current Visit: Yes Status: Chronic (3) Nicotine dependence Current Visit: Yes Status: Chronic Qualifiers: Nicotine product type: cigarettes Substance use status: in withdrawal Qualified Code(s): F17.213 - Nicotine dependence, cigarettes, with withdrawal (4) Cocaine dependence Current Visit: No Status: Acute (5) Cocaine dependence, uncomplicated Current Visit: No Status: Acute (6) Sedative hypnotic or anxiolytic dependence Current Visit: No Status: Acute (7) Substance induced mood disorder Current Visit: No Status: Acute (8) Substance-induced sleep disorder Current Visit: No Status: Acute (9) Walker as ambulation aid Current Visit: No Status: Acute (10) Bipolar disorder Current Visit: No Status: Chronic (11) Blindness of left eye Current Visit: No Status: Chronic (12) History of back surgery Current Visit: No Status: Resolved (13) Schizoaffective disorder Current Visit: No Status: Ruled-out - Initial Treatment Plan Initial Treatment Plan: Remeron 30mg po qhs. Seroquel 100mg po bid
[2018-08-06] MEDS: PRENATAL VITAMINS W/ FOLIC ACID TABLET (FP) PO SCH (10:56)
[2018-08-06] MEDS: NICOTINE 14 MG/24 HOURS TOPICAL PATCH TD SCH (10:56)
[2018-08-06 10:58] LABS: HEMATOCRIT 38.6 % (35.4-49); HEMOGLOBIN 12.5 GM/dL (11.7-16.9); MCHC 32.4 g/dl (32.0-35.9); MEAN CELL VOLUME 86.6 fl (80-96); MEAN PLT VOLUME 9.2 fl (7.5-11.1); PLATELET COUNT 193 K/MM3 (134-434); RBC 4.46 M/mm3 (4.00-5.60); RDW 15.3 % (11.9-15.9); WHITE BLOOD COUNT 3.9 K/mm3 (4.0-10.0)
[2018-08-06 11:19] LABS: ALBUMIN 3.5 g/dl (3.4-5.0); ALK PHOS 84 U/L (45-117); ANION GAP 6 MMOL/L (8-16); BILIRUBIN,TOTAL 0.4 mg/dL (0.2-1); BLOOD UREA NITROGEN 10 mg/dL (7-18); CALCIUM 8.7 mg/dL (8.5-10.1); CHLORIDE 106 mmol/L (98-107); CO2 29 mmol/L (21-32); CREATININE 1.2 mg/dL (0.55-1.3); GLUCOSE,RANDOM 130 mg/dL (74-106); SGOT/AST 14 U/L (15-37); SGPT/ALT 20 U/L (13-61); SODIUM 140 mmol/L (136-145); TOT PROT 6.9 g/dl (6.4-8.2)
--- NOTE | 2018-08-06 12:19 | EKG ---
Test Reason : Blood Pressure : / mmHG Vent. Rate : 093 BPM Atrial Rate : 093 BPM P-R Int : 154 ms QRS Dur : 104 ms QT Int : 378 ms P-R-T Axes : 065 073 066 degrees QTc Int : 469 ms NORMAL SINUS RHYTHM INCOMPLETE RIGHT BUNDLE BRANCH BLOCK NONSPECIFIC T WAVE ABNORMALITY PROLONGED QT ABNORMAL ECG WHEN COMPARED WITH ECG OF 23-MAY-2018 13:09, INCOMPLETE RIGHT BUNDLE BRANCH BLOCK IS NOW PRESENT Confirmed by NADIR ROSE MD ([id number]) on 08/06/2018 12:19:03 PM Referred By: Confirmed By:NADIR ROSE MD
[2018-08-06] MEDS: QUEtiapine FUMARATE 100 MG TABLET (FP) PO SCH ×2 (12:22→22:09)
--- NOTE | 2018-08-06 13:55 | PN ---
[facility] CIWA - CIWA Score Nausea/Vomitin-Mild Nausea/No Vomiting Muscle Tremors: 3 Anxiety: 3 Agitation: 3 Paroxysmal Sweats: 1-Minimal Palms Moist Orientation: 1-Uncertain about Date Tacttile Disturbances: 1-Very Mild Itch/Numbness Auditory Disturbances: 0-None Visual Disturbances: 0-None Headache: 1-Very Mild CIWA-Ar Total Score: 14 S Progress Note (SOAP) Subjective: tremor sweat restlessness anxiety gi distress ambulate with walker, Objective: 08/06/18 14:00 Vital Signs Temperature 98.1 F 08/06/18 13:38 Pulse Rate 98 H 08/06/18 13:38 Respiratory Rate 18 08/06/18 13:38 Blood Pressure 115/73 08/06/18 13:38 O2 Sat by Pulse Oximetry (%) Laboratory Last Values WBC 3.9 K/mm3 (4.0-10.0) L 08/06/18 07:00 RBC 4.46 M/mm3 (4.00-5.60) 08/06/18 07:00 Hgb 12.5 GM/dL (11.7-16.9) 08/06/18 07:00 Hct 38.6 % (35.4-49) D 08/06/18 07:00 MCV 86.6 fl (80-96) 08/06/18 07:00 MCH 28.0 pg (25.7-33.7) 08/06/18 07:00 MCHC 32.4 g/dl (32.0-35.9) 08/06/18 07:00 RDW 15.3 % (11.9-15.9) 08/06/18 07:00 Plt Count 193 K/MM3 (134-434) 08/06/18 07:00 MPV 9.2 fl (7.5-11.1) 08/06/18 07:00 Sodium 140 mmol/L (136-145) 08/06/18 07:00 Potassium 4.0 mmol/L (3.5-5.1) 08/06/18 07:00 Chloride 106 mmol/L (98-107) 08/06/18 07:00 Carbon Dioxide 29 mmol/L (21-32) 08/06/18 07:00 Anion Gap 6 MMOL/L (8-16) L 08/06/18 07:00 BUN 10 mg/dL (7-18) 08/06/18 07:00 Creatinine 1.2 mg/dL (0.55-1.3) 08/06/18 07:00 Creat Clearance w eGFR > 60 (>60) 08/06/18 07:00 Random Glucose 130 mg/dL (74-106) H 08/06/18 07:00 Calcium 8.7 mg/dL (8.5-10.1) 08/06/18 07:00 Total Bilirubin 0.4 mg/dL (0.2-1) 08/06/18 07:00 AST 14 U/L (15-37) L 08/06/18 07:00 ALT 20 U/L (13-61) 08/06/18 07:00 Alkaline Phosphatase 84 U/L (45-117) 08/06/18 07:00 Total Protein 6.9 g/dl (6.4-8.2) 08/06/18 07:00 Albumin 3.5 g/dl (3.4-5.0) 08/06/18 07:00 RPR Titer Nonreactive (NONREACTIVE) 08/06/18 07:00 HIV 1&2 Antibody Screen Negative 08/06/18 07:00 HIV P24 Antigen Negative 08/06/18 07:00 lab noted Assessment: 08/06/18 14:00 withdrawal sx Plan: continue detox
--- NOTE | 2018-08-06 16:59 | EKG ---
Test Reason : Blood Pressure : / mmHG Vent. Rate : 089 BPM Atrial Rate : 089 BPM P-R Int : 152 ms QRS Dur : 106 ms QT Int : 290 ms P-R-T Axes : 067 074 068 degrees QTc Int : 352 ms NORMAL SINUS RHYTHM NONSPECIFIC T WAVE ABNORMALITY ABNORMAL ECG WHEN COMPARED WITH ECG OF 05-AUG-2018 20:47, INCOMPLETE RIGHT BUNDLE BRANCH BLOCK IS NO LONGER PRESENT Confirmed by MILTON CHAPARRO, NADIR ([id number]) on 08/06/2018 4:59:14 PM Referred By: Confirmed By:NADIR ROSE MD
[2018-08-06] MEDS ORDERED: MIRTAZAPINE 30 MG TABLET (FP) PO SCH (22:00)
[2018-08-06] MEDS: THIAMINE HCL 100 MG TABLET (FP) PO SCH (22:09)
[2018-08-07] MEDS: chlordiazePOXIDE HCL 25 MG CAPSULE PO SCH ×3 (06:39→18:15)
[2018-08-07] MEDS: PRENATAL VITAMINS W/ FOLIC ACID TABLET (FP) PO SCH (11:00)
[2018-08-07] MEDS: QUEtiapine FUMARATE 100 MG TABLET (FP) PO SCH (11:00)
[2018-08-07] MEDS: NICOTINE 14 MG/24 HOURS TOPICAL PATCH TD SCH (11:00)
[2018-08-07 14:21] VITALS: TEMP 98.1
--- NOTE | 2018-08-07 14:30 | PN ---
[facility] CIWA - CIWA Score Nausea/Vomitin-No Nausea/No Vomiting Muscle Tremors: 3 Anxiety: 3 Agitation: 2 Paroxysmal Sweats: No Perspiration Orientation: 0-Oriented Tacttile Disturbances: 0-None Auditory Disturbances: 0-None Visual Disturbances: 0-None Headache: 2-Mild CIWA-Ar Total Score: 10 S Progress Note (SOAP) Subjective: PATIENT C/O SHAKES, ANXIETY, MILD HEADACHE Objective: 08/07/18 14:27 Vital Signs Temperature 98.1 F 08/07/18 14:18 Pulse Rate 100 H 08/07/18 14:18 Respiratory Rate 16 08/07/18 14:18 Blood Pressure 132/76 08/07/18 14:18 O2 Sat by Pulse Oximetry (%) Laboratory Tests 08/06/18 08/06/18 08/06/18 07:00 07:00 07:00 WBC 3.9 L RBC 4.46 Hgb 12.5 Hct 38.6 D MCV 86.6 MCH 28.0 MCHC 32.4 RDW 15.3 Plt Count 193 MPV 9.2 Sodium 140 Potassium 4.0 Chloride 106 Carbon Dioxide 29 Anion Gap 6 L BUN 10 Creatinine 1.2 Creat Clearance w eGFR > 60 Random Glucose 130 H Calcium 8.7 Total Bilirubin 0.4 AST 14 L ALT 20 Alkaline Phosphatase 84 Total Protein 6.9 Albumin 3.5 RPR Titer HIV 1&2 Antibody Screen Negative HIV P24 Antigen Negative 08/06/18 07:00 WBC RBC Hgb Hct MCV MCH MCHC RDW Plt Count MPV Sodium Potassium Chloride Carbon Dioxide Anion Gap BUN Creatinine Creat Clearance w eGFR Random Glucose Calcium Total Bilirubin AST ALT Alkaline Phosphatase Total Protein Albumin RPR Titer Nonreactive HIV 1&2 Antibody Screen HIV P24 Antigen SKIN WARM AND DRY EXT +TREMORS IRRITABLE, STATED " I AM TIRED. JUST WANT TO SLEEP" ALERT AND ORIENTED X 3 CONTINUE DETOX ENCOURAGE ORAL FLUIDS CONTINUE TO MONITOR CLINICALLY 08/07/18 14:30 Assessment: 08/07/18 14:30 WITHDRAWAL SX Plan: CONTINUE DETOX ENCOURAGE ORAL FLUIDS CONTINUE TO MONITOR CLINICALLY 08/07/18 14:30
[2018-08-07 17:32] VITALS: BP 130/91; PULSE 106
[2018-08-07] MEDS: IBUPROFEN 400 MG TABLET (FP) PO PRN (19:01)
[2018-08-07] MEDS: chlordiazePOXIDE HCL 25 MG CAPSULE PO PRN (19:01)
[2018-08-07] MEDS ORDERED: chlordiazePOXIDE 5 MG CAPSULE PO SCH (23:00)
--- NOTE | 2018-08-07 23:09 | PN ---
[facility] Progress Note Note: Called because patient yelling and verbally threatening patients and staff. Patient was alert and oriented. Patient has a walker but demonstrates ability to walk w/ a steady gait w/o its use. Denies thoughts of harming self or others. Patient states aware of being administratively discharged and is able to get home. Patient cautioned on risks of overdose elated to loss of tolerance and possibility of use of alcohol and prescribed oxycodone. patient encouraged to go to an AA meeting in the am and he states he will consider.
--- NOTE | 2018-08-07 23:22 | DS ---
[facility] Detox Discharge Summary Admission Date: 08/05/18 Discharge Date: 08/07/18 - History Present History: Alcohol Dependence Additional Comments: Patient admitted with alcohol withdrawal symptoms. Alcohol use since age 10. - Physical Exam Results Vital Signs: Vital Signs Temperature 98.1 F 08/07/18 17:32 Pulse Rate 106 H 08/07/18 17:32 Respiratory Rate 20 08/07/18 17:32 Blood Pressure 130/91 08/07/18 17:32 O2 Sat by Pulse Oximetry (%) Pertinent Admission Physical Exam Findings: Patient admitted w/symptoms of alcohol withdrawal. Patient w/ chronic back pain and was being prescribed oxycodone for over 1 year. Laboratory Tests 08/06/18 08/06/18 08/06/18 07:00 07:00 07:00 WBC 3.9 L RBC 4.46 Hgb 12.5 Hct 38.6 D MCV 86.6 MCH 28.0 MCHC 32.4 RDW 15.3 Plt Count 193 MPV 9.2 Sodium 140 Potassium 4.0 Chloride 106 Carbon Dioxide 29 Anion Gap 6 L BUN 10 Creatinine 1.2 Creat Clearance w eGFR > 60 Random Glucose 130 H Calcium 8.7 Total Bilirubin 0.4 AST 14 L ALT 20 Alkaline Phosphatase 84 Total Protein 6.9 Albumin 3.5 RPR Titer HIV 1&2 Antibody Screen Negative HIV P24 Antigen Negative 08/06/18 07:00 WBC RBC Hgb Hct MCV MCH MCHC RDW Plt Count MPV Sodium Potassium Chloride Carbon Dioxide Anion Gap BUN Creatinine Creat Clearance w eGFR Random Glucose Calcium Total Bilirubin AST ALT Alkaline Phosphatase Total Protein Albumin RPR Titer Nonreactive HIV 1&2 Antibody Screen HIV P24 Antigen Labs reviewed. Patient alert and oriented. Patient verbally threatening harm to other patients and staff. - Treatment Hospital Course: Detox Protocol Followed (Patient did not complete protocol.), Discharged Condition Good (Patient alert and oriented. Denies thoughts of harming self or others. Gait steady.) - Medication Discharge Medications: Ambulatory Orders Albuterol Sulfate Inhaler - [Ventolin HFA Inhaler -] 2 inh PO Q4H #1 inhaler Mirtazapine [Remeron -] 30 mg PO HS #30 tablet 08/06/18 Quetiapine Fumarate [Seroquel] 100 mg PO BID #60 tablet 08/06/18 - Diagnosis (1) Alcohol dependence with uncomplicated withdrawal Current Visit: Yes Status: Resolved (2) Cannabis dependence Current Visit: Yes Status: Acute (3) Asthma Current Visit: Yes Status: Chronic Qualifiers: Asthma severity: mild Asthma persistence: intermittent Asthma complication type: uncomplicated Qualified Code(s): J45.20 - Mild intermittent asthma, uncomplicated (4) Lumbago Current Visit: Yes Status: Chronic Qualifiers: Chronicity: chronic Back pain laterality: unspecified Sciatica presence: unspecified whether sciatica present Qualified Code(s): M54.5 - Low back pain ; G89.29 - Other chronic pain (5) Nicotine dependence Current Visit: Yes Status: Chronic Qualifiers: Nicotine product type: cigarettes Substance use status: in withdrawal Qualified Code(s): F17.213 - Nicotine dependence, cigarettes, with withdrawal (6) Walker as ambulation aid Current Visit: Yes Status: Chronic
[2018-08-08] MEDS ORDERED: chlordiazePOXIDE HCL 10 MG CAPSULE PO SCH (23:00)
== END 2018-08-07 20:49 | disposition left against medical advice (07) | DRG 774 ==
LOC: YASAS 13:49 → Y6N 17:59
PROC: HZ2ZZZZ Detoxification Services for Substance Abuse Treatment (ICD-10-PCS; principal; 2018-08-05)
DX: F10.230 Alcohol dependence with withdrawal, uncomplicated (principal); F13.20 Sedative, hypnotic or anxiolytic dependence, uncomplicated; F14.20 Cocaine dependence, uncomplicated; F12.20 Cannabis dependence, uncomplicated; F17.213 Nicotine dependence, cigarettes, with withdrawal; F25.9 Schizoaffective disorder, unspecified; F31.9 Bipolar disorder, unspecified; F19.24 Other psychoactive substance dependence with psychoactive substance-induced mood disorder; F19.282 Other psychoactive substance dependence with psychoactive substance-induced sleep disorder; F99 Mental disorder, not otherwise specified; J45.20 Mild intermittent asthma, uncomplicated; M54.5 Low back pain; G89.29 Other chronic pain; R26.89 Other abnormalities of gait and mobility; Z99.89 Dependence on other enabling machines and devices; Z98.890 Other specified postprocedural states; H54.62 Unqualified visual loss, left eye, normal vision right eye; F91.8 Other conduct disorders; Z91.19 Patient's noncompliance with other medical treatment and regimen
CPT/HCPCS: 36415; 80053; 85027; 86593; 87389; 93005; 93010

== ENCOUNTER 2018-12-22 08:27 | Inpatient (IN) | payer OTHER ==
[2018-12-22 09:04] VITALS: BMI 32.5
--- NOTE | 2018-12-22 09:28 | HP ---
CIWA Score Nausea/Vomitin Muscle Tremors: 3 Anxiety: 4-Mod. Anxious/Guarded Agitation: 2 Paroxysmal Sweats: 2 Orientation: 2-Disoriented Date<2 days Tacttile Disturbances: 2-Mild Itch/Numbness/Burn Auditory Disturbances: 1-Very Mild Visual Disturbances: 2-Mild Sensitivity Headache: 5-Severe CIWA-Ar Total Score: 26 - Admission Criteria OASAS Guidelines: Admission for Medically Managed Detox: Requires at least one of the followin. CIWA greater than 12 2. Seizures within the past 24 hours 3. Delirium tremens within the past 24 hours 4. Hallucinations within the past 24 hours 5. Acute intervention needed for co occurring medical disorder 6. Acute intervention needed for co occurring psychiatric disorder 7. Severe withdrawal that cannot be handled at a lower level of care (continued vomiting, continued diarrhea, abnormal vital signs) requiring intravenous medication and/or fluids 8. Admission ROS [facility] Chief Complaint: " I feel sick " Allergies/Adverse Reactions: Allergies Allergy/AdvReac Type Severity Reaction Status Date / Time No Known Allergies Allergy Verified 08/05/18 17:02 History of Present Illness: Reference #: [id number] Others' Prescriptions Patient Name: Phil Escobar Date: 1965 Address: [address] [place] [address] Sex: Male Rx Written Rx Dispensed Drug Quantity Days Supply Prescriber Name 12/16/2018 12/17/2018 oxycodone-acetaminophen 10-325 mg tab 60 30 Sharad Meeks 11/19/2018 11/19/2018 oxycodone-acetaminophen 10-325 mg tab 60 30 RancesSharad 11/13/2018 11/13/2018 oxycodone-acetaminophen 10-325 mg tab 14 7 RancesSharad 09/23/2018 09/23/2018 oxycodone-acetaminophen 10-325 mg tab 60 30 PughRoberta cunningham 08/14/2018 08/15/2018 oxycodone-acetaminophen 10-325 mg tab 60 30 Roberta Pugh 07/13/2018 07/15/2018 oxycodone-acetaminophen 10-325 mg tab 60 30 RanafiaSharad 06/17/2018 06/17/2018 oxycodone-acetaminophen 10-325 mg tab 60 30 Sharad Meeks Patient Name: Phil Escobar Date: 1965 Address: [address] [address] Sex: Male Rx Written Rx Dispensed Drug Quantity Days Supply Prescriber Name 09/04/2018 09/04/2018 chlordiazepoxide 25 mg capsule 24 5 Kannan Queen) Patient Name: Phil Escobar Date: 1965 Address: [address] [place] [id number] Sex: Male Rx Written Rx Dispensed Drug Quantity Days Supply Prescriber Name 08/03/2018 08/04/2018 acetaminophen-cod #3 tablet 20 4 Reinaldo Dang DMD Patient Name: Phil Escobar Date: 1965 Address: [address] [place] [id number] Sex: Male Rx Written Rx Dispensed Drug Quantity Days Supply Prescriber Name 05/13/2018 05/13/2018 oxycodone-acetaminophen 10-325 mg tab 60 30 Rances, Sahrad Lamb 04/13/2018 04/14/2018 oxycodone-acetaminophen 10-325 mg tab 30 15 Rances, Sharad R 03/18/2018 03/18/2018 oxycodone-acetaminophen 10-325 mg tab 30 15 Rances, Sharad R 02/12/2018 02/12/2018 oxycodone-acetaminophen 10-325 mg tab 30 15 Rances, Sharad R 01/29/2018 01/29/2018 oxycodone-acetaminophen 10-325 mg tab 30 15 Rances, Sharad R 01/15/2018 01/15/2018 oxycodone-acetaminophen 10-325 mg tab 30 15 Rances, Sharad R 01/01/2018 01/01/2018 oxycodone-acetaminophen 10-325 mg tab 30 15 Rances, Sharad Lamb Patient Name: Phil Escobar Date: 1965 Address: [address] [place] [id number] Sex: Male Rx Written Rx Dispensed Drug Quantity Days Supply Prescriber Name 03/16/2018 03/16/2018 oxycodone-acetaminophen 5-325 mg tab 5 2 Mell Monge pt here requesting detox from etoh use , reports 1 - 1.5 pints liquor and a 6- pk beer daily x 2 months , prior sobriety x 4-5 months , first age of use 11 , progressively increased , longest sobriety 80 months [id number] w/ AA meetings , reports w/d seizures 15 years ago , reports blackouts , tremors , starts drinking around 11 am , 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 benzo : reports xanax , between 3-8 of 2 mg each x 2 months , prior to which he was not using benzo , latset use 8 am today cocaine : 100-600 $/day denies IVDU , latest use 8 am tobacco : 1/2 ppd . reports illicitly using Percocet reports cannabis use : 8 /day PMHx :asthma since childhood ( hospitalized, intubated , latest 5 years ago , does not have / use inhaler ) , lumbar laminectomy April 2018 [facility] , chronic LBP , left eye blind since . PSHx : as above , appy , sree, breast tissue benign , denies recent procedures Psych : bipolar d/o meds : seroquel xr 50 mg , remeron hs 15 , shx : lives alone , denies legal issues Exam Limitations: Clinical Condition - Ebola screening Have you traveled outside of the country in the last 21 days: No Have you had contact with anyone from an Ebola affected area: No Have you been sick,other than usual withdrawal symptoms: No Do you have a fever: No - Review of Systems Constitutional: See HPI EENT: reports: Other (left eye blind since , bifocals) Respiratory: reports: No Symptoms reported Cardiac: reports: No Symptoms Reported GI: reports: See HPI, Diarrhea : reports: No Symptoms Reported Musculoskeletal: reports: Back Pain Integumentary: reports: No Symptoms Reported Neuro: reports: See HPI, Headache Endocrine: reports: No Symptoms Reported Psychiatric: reports: Orientated x3, Agitated, Anxious Patient History - Patient Medical History Hx Anemia: No Hx Asthma: Yes Hx Chronic Obstructive Pulmonary Disease (COPD): No Hx Cancer: No Hx Cardiac Disorders: No Hx Congestive Heart Failure: No Hx Hypertension: No Hx Hypercholesterolemia: No Hx Pacemaker: No HX Cerebrovascular Accident: No Hx Seizures: Yes (seizure r/ t alcohol last episode last 1979) Hx Dementia: No Hx Diabetes: No Hx Gastrointestinal Disorders: No Hx Liver Disease: No Hx Genitourinary Disorders: No Hx Sexually Transmitted Disorders: Yes (complted tx) Hx Renal Disease (ESRD): No Hx Thyroid Disease: No Hx Human Immunodeficiency Virus (HIV): No Hx Hepatitis C: No Hx Depression: Yes Hx Suicide Attempt: No Hx Bipolar Disorder: Yes (Seroquel & Remeron) Hx Schizophrenia: Yes - Patient Surgical History Past Surgical History: Yes Hx Neurologic Surgery: No Hx Cataract Extraction: No Hx Cardiac Surgery: No Hx Lung Surgery: No Hx Breast Surgery: Yes (Gynecomastia) Hx Breast Biopsy: No Hx Abdominal Surgery: No Hx Appendectomy: Yes (1977) Hx Cholecystectomy: Yes (2016) Hx Genitourinary Surgery: No Hx Section: No Hx Orthopedic Surgery: No Anesthesia Reaction: No - PPD History Results: NEG CXR 08/2017 - Smoking Cessation Smoking history: Current every day smoker Have you smoked in the past 12 months: Yes Aproximately how many cigarettes per day: 5 Cigars Per Day: 0 Hx Chewing Tobacco Use: No Initiated information on smoking cessation: No Family Disease History - Family Disease History Family Disease History: Diabetes: Grandparent, Mother (, heroin/cocaine/) , Sister (three - living - etoh), Heart Disease: Mother, Sister, Other: Father ( , Alcohol), Mother, Brother (two living - Marijuana, one mentally ill), Sister, Son (three), Daughter (one) Admission Physical Exam BHS - Vital Signs Vital Signs: Vital Signs - 24 hr 12/22/18 09:01 Temperature 97.8 F Pulse Rate 93 H Respiratory 20 Rate Blood Pressure 142/97 - Physical General Appearance: Yes: Mild Distress, Moderate Distress, Irritable, Anxious HEENTM: Yes: Hearing grossly Normal, Normocephalic, Normal Voice, Other (left eye blind many mising teeth , poor dentition) Respiratory: Yes: Chest Non-Tender, Lungs Clear, Normal Breath Sounds Neck: Yes: No masses,lesions,Nodules, Trachea in good position Cardiology: Yes: Regular Rhythm, Regular Rate, S1, S2, Tachycardia Abdominal: Yes: Non Tender, Soft Genitourinary: Yes: Within Normal Limits Back: Yes: Normal Inspection Musculoskeletal: Yes: Gait Steady Extremities: Yes: Normal Capillary Refill Neurological: Yes: Motor Strength 5/5 Integumentary: Yes: Dry - Diagnostic (1) Alcohol dependence Current Visit: Yes Status: Acute Qualifiers: Substance use status: in withdrawal (2) Cannabis dependence Current Visit: Yes Status: Chronic (3) Cocaine dependence Current Visit: Yes Status: Chronic Qualifiers: Substance use status: uncomplicated Qualified Code(s): F14.20 - Cocaine dependence, uncomplicated (4) Sedative, hypnotic or anxiolytic dependence with withdrawal with perceptual disturbance Current Visit: Yes Status: Acute (5) Asthma Current Visit: No Status: Chronic Qualifiers: Asthma severity: mild Asthma persistence: intermittent Asthma complication type: uncomplicated Qualified Code(s): J45.20 - Mild intermittent asthma, uncomplicated BHS Breath Alcohol Content Breath Alcohol Content: 0 Urine Drug Screen - Results Drug Screen Negative: No Urine Drug Screen Results: THC-Marijuana, EDGARDO-Cocaine, BZO-Benzodiazepines Inpatient Rehab Admission - Rehab Decision to Admit Inpatient rehab admission?: No
[2018-12-22] MEDS ORDERED: MAGNESIUM CITRATE 300 ML BOTTLE PO PRN (09:42)
[2018-12-22] MEDS ORDERED: ACETAMINOPHEN 325 MG TABLET (FP) PO PRN ×2 (09:42)
[2018-12-22] MEDS ORDERED: METHOCARBAMOL 500 MG TABLET PO PRN (09:42)
[2018-12-22] MEDS ORDERED: DICYCLOMINE HCL 10 MG CAPSULE PO PRN (09:42)
[2018-12-22] MEDS ORDERED: IBUPROFEN 400 MG TABLET (FP) PO PRN (09:42)
[2018-12-22] MEDS ORDERED: MELATONIN 5 MG TABLETS PO PRN (09:42)
[2018-12-22] MEDS ORDERED: MAGNESIUM HYDROX 2400MG/30ML ORAL SUSPENSION 30 ML CUP PO PRN (09:42)
[2018-12-22] MEDS ORDERED: MENTHOL/PHENOL 1 EACH UD MM PRN (09:42)
[2018-12-22] MEDS ORDERED: chlordiazePOXIDE HCL 25 MG CAPSULE PO PRN (09:42)
[2018-12-22] MEDS ORDERED: ALBUTEROL SO4 0.083% IH SOL 2.5 MG/3 ML VIAL.NEB. NEB PRN (09:44)
[2018-12-22] MEDS: chlordiazePOXIDE HCL 25 MG CAPSULE PO SCH ×3 (12:20→22:27)
[2018-12-22] MEDS: PRENATAL VITAMINS W/ FOLIC ACID TABLET (FP) PO SCH (12:20)
[2018-12-22] MEDS: MAG HYDROX/AL HYDROX/SIMETH 30 ML UNIT-DOSE CUP PO PRN ×2 (12:26→19:55)
[2018-12-22] MEDS ORDERED: LOPERAMIDE HCL 2 MG CAPSULE PO ONE (21:45)
--- NOTE | 2018-12-22 21:49 | PN ---
S Progress Note Note: Vital Signs Temperature 97 F L 12/22/18 18:11 Pulse Rate 95 H 12/22/18 18:11 Respiratory Rate 20 12/22/18 18:11 Blood Pressure 145/92 12/22/18 18:11 O2 Sat by Pulse Oximetry (%) c/o of diarrhea and low pelvic pain. No distress. Denies any dysuria or hematuria. Patient AOx3 no acute distress no adventicious breath sounds no abdominal tenderness full ROM diarrhea labs pending ibuprofen 800 mg PRN immodium u/a ordered continue to monitor
[2018-12-22] MEDS: IBUPROFEN 400 MG TABLET (FP) PO PRN (22:26)
[2018-12-22] MEDS: THIAMINE HCL 100 MG TABLET (FP) PO SCH (22:28)
[2018-12-23] MEDS: chlordiazePOXIDE HCL 25 MG CAPSULE PO SCH ×4 (05:32→22:40)
[2018-12-23] MEDS: IBUPROFEN 400 MG TABLET (FP) PO PRN ×3 (05:33→22:42)
[2018-12-23] MEDS: PRENATAL VITAMINS W/ FOLIC ACID TABLET (FP) PO SCH (10:16)
[2018-12-23 10:50] LABS: HEMATOCRIT 40.5 % (35.4-49); HEMOGLOBIN 13.8 GM/dL (11.7-16.9); MCHC 34.2 g/dl (32.0-35.9); MEAN CELL VOLUME 90.6 fl (80-96); MEAN PLT VOLUME 9.6 fl (7.5-11.1); PLATELET COUNT 200 K/MM3 (134-434); RBC 4.47 M/mm3 (4.00-5.60); RDW 15.2 % (11.9-15.9); WHITE BLOOD COUNT 7.6 K/mm3 (4.0-10.0)
[2018-12-23 11:27] LABS: ALBUMIN 4.5 g/dl (3.4-5.0); ALK PHOS 93 U/L (45-117); ANION GAP 8 MMOL/L (8-16); BILIRUBIN,TOTAL 0.6 mg/dL (0.2-1); BLOOD UREA NITROGEN 12 mg/dL (7-18); CALCIUM 9.3 mg/dL (8.5-10.1); CHLORIDE 103 mmol/L (98-107); CO2 28 mmol/L (21-32); CREATININE 1.3 mg/dL (0.55-1.3); GLUCOSE,RANDOM 82 mg/dL (74-106); POTASSIUM 3.7 mmol/L (3.5-5.1); SGOT/AST 32 U/L (15-37); SGPT/ALT 43 U/L (13-61); SODIUM 139 mmol/L (136-145); TOT PROT 8.7 g/dl (6.4-8.2)
--- NOTE | 2018-12-23 16:05 | PN ---
S CIWA - CIWA Score Nausea/Vomitin-Mild Nausea/No Vomiting Muscle Tremors: 4-Moderate,w/Arms Extend Anxiety: 4-Mod. Anxious/Guarded Agitation: 4-Moderately Restless Paroxysmal Sweats: 1-Minimal Palms Moist Orientation: 3-Disoriented Date>2 days Tacttile Disturbances: 0-None Auditory Disturbances: 0-None Visual Disturbances: 0-None Headache: 2-Mild CIWA-Ar Total Score: 19 BHS Progress Note (SOAP) Subjective: tremor sweating restlessness anxiety Objective: 12/23/18 16:05 Vital Signs Temperature 97.8 F 12/23/18 13:04 Pulse Rate 95 H 12/23/18 13:04 Respiratory Rate 20 12/23/18 13:04 Blood Pressure 98/62 12/23/18 13:04 O2 Sat by Pulse Oximetry (%) Laboratory Last Values WBC 7.6 K/mm3 (4.0-10.0) 12/23/18 06:00 RBC 4.47 M/mm3 (4.00-5.60) 12/23/18 06:00 Hgb 13.8 GM/dL (11.7-16.9) 12/23/18 06:00 Hct 40.5 % (35.4-49) 12/23/18 06:00 MCV 90.6 fl (80-96) 12/23/18 06:00 MCH 31.0 pg (25.7-33.7) D 12/23/18 06:00 MCHC 34.2 g/dl (32.0-35.9) 12/23/18 06:00 RDW 15.2 % (11.9-15.9) 12/23/18 06:00 Plt Count 200 K/MM3 (134-434) 12/23/18 06:00 MPV 9.6 fl (7.5-11.1) 12/23/18 06:00 Sodium 139 mmol/L (136-145) 12/23/18 06:00 Potassium 3.7 mmol/L (3.5-5.1) 12/23/18 06:00 Chloride 103 mmol/L (98-107) 12/23/18 06:00 Carbon Dioxide 28 mmol/L (21-32) 12/23/18 06:00 Anion Gap 8 MMOL/L (8-16) 12/23/18 06:00 BUN 12 mg/dL (7-18) 12/23/18 06:00 Creatinine 1.3 mg/dL (0.55-1.3) 12/23/18 06:00 Creat Clearance w eGFR 57.31 (>60) 12/23/18 06:00 Random Glucose 82 mg/dL (74-106) 12/23/18 06:00 Calcium 9.3 mg/dL (8.5-10.1) 12/23/18 06:00 Total Bilirubin 0.6 mg/dL (0.2-1) 12/23/18 06:00 AST 32 U/L (15-37) 12/23/18 06:00 ALT 43 U/L (13-61) 12/23/18 06:00 Alkaline Phosphatase 93 U/L (45-117) 12/23/18 06:00 Total Protein 8.7 g/dl (6.4-8.2) H 12/23/18 06:00 Albumin 4.5 g/dl (3.4-5.0) 12/23/18 06:00 RPR Titer Nonreactive (NONREACTIVE) 12/23/18 06:00 lab noted Assessment: 12/23/18 16:05 withdrawal sx Plan: continue detox
--- NOTE | 2018-12-23 17:39 | CONSULT ---
[facility] Psychiatric Consult - Data Date of interview: 12/23/18 Admission source: [facility] Identifying data: Patient is approached by this sign writer hand for psychiatric interview. " I am good. I don't need to see psychiatrists ". Mr Escobar declines to have a psychiatric evaluation. Nursing staff is made aware.
[2018-12-23] MEDS: NICOTINE POLACRILEX 2 MG GUM BUC PRN (21:30)
[2018-12-23] MEDS: THIAMINE HCL 100 MG TABLET (FP) PO SCH (22:43)
[2018-12-24] MEDS: chlordiazePOXIDE HCL 25 MG CAPSULE PO SCH (06:00)
[2018-12-24] MEDS: IBUPROFEN 400 MG TABLET (FP) PO PRN (10:24)
[2018-12-24] MEDS: PRENATAL VITAMINS W/ FOLIC ACID TABLET (FP) PO SCH (10:25)
[2018-12-24] MEDS: ONDANSETRON *ODT* 4 MG TABLET SL PRN (10:29)
[2018-12-24] MEDS: NICOTINE POLACRILEX 2 MG GUM BUC PRN (10:29)
[2018-12-24] MEDS: LOPERAMIDE HCL 2 MG CAPSULE PO PRN (10:29)
[2018-12-24] MEDS ORDERED: ALBUTEROL SO4 8 GM HFA INHALER IH PRN (10:40)
[2018-12-24] MEDS ORDERED: chlordiazePOXIDE HCL 10 MG CAPSULE PO PRN (11:00)
[2018-12-24] MEDS: chlordiazePOXIDE HCL 10 MG CAPSULE PO SCH ×3 (11:09→22:27)
--- NOTE | 2018-12-24 18:08 | PN ---
S CIWA - CIWA Score Nausea/Vomitin Muscle Tremors: None Anxiety: 1-Mildly Anxious Agitation: 0-Normal Activity Paroxysmal Sweats: 3 Orientation: 2-Disoriented Date<2 days Tacttile Disturbances: 0-None Auditory Disturbances: 2-Mild Harshness/Frighten Visual Disturbances: 1-Very Mild Sensitivity Headache: 0-None Present CIWA-Ar Total Score: 12 BHS Progress Note (SOAP) Subjective: Diarrhea, Sweating, Nausea. Objective: PATIENT A & O X 2 (UNCERTAIN ABOUT CURRENT DAY / DATE). PATIENT OBSERVED AMBULATING ON UNIT. IN NO ACUTE DISTRESS. 12/24/18 18:07 Vital Signs Temperature 98.4 F 12/24/18 14:07 Pulse Rate 95 H 12/24/18 14:07 Respiratory Rate 20 12/24/18 14:07 Blood Pressure 133/84 12/24/18 14:07 O2 Sat by Pulse Oximetry (%) Laboratory Tests 12/23/18 12/23/18 12/23/18 06:00 06:00 06:00 WBC 7.6 RBC 4.47 Hgb 13.8 Hct 40.5 MCV 90.6 MCH 31.0 D MCHC 34.2 RDW 15.2 Plt Count 200 MPV 9.6 Sodium 139 Potassium 3.7 Chloride 103 Carbon Dioxide 28 Anion Gap 8 BUN 12 Creatinine 1.3 Creat Clearance w eGFR 57.31 Random Glucose 82 Calcium 9.3 Total Bilirubin 0.6 AST 32 ALT 43 Alkaline Phosphatase 93 Total Protein 8.7 H Albumin 4.5 RPR Titer Nonreactive LABS NOTED. Assessment: 12/24/18 18:07 WITHDRAWAL SYMPTOMS. Plan: CONTINUE DETOX. INCREASE DAILY PO FLUID INTAKE. PRN IMODIUM PO FOR DIARRHEA. PRN ZOFRAN SL FOR NAUSEA.
[2018-12-24] MEDS: THIAMINE HCL 100 MG TABLET (FP) PO SCH (22:27)
[2018-12-25] MEDS: chlordiazePOXIDE HCL 10 MG CAPSULE PO SCH ×3 (06:08→22:21)
[2018-12-25] MEDS: PRENATAL VITAMINS W/ FOLIC ACID TABLET (FP) PO SCH (10:30)
[2018-12-25] MEDS: IBUPROFEN 400 MG TABLET (FP) PO PRN ×2 (10:32→20:12)
[2018-12-25] MEDS: ONDANSETRON *ODT* 4 MG TABLET SL PRN (10:32)
--- NOTE | 2018-12-25 14:54 | PN ---
[facility] Progress Note (SOAP) Subjective: Body Aches, Sweating, Diarrhea. Patient Reports that He feels as if "something is in his right ear" X approx. 1 week. Objective: PATIENT A & O X 3, OBSERVED AMBULATING ON UNIT. IN NO ACUTE DISTRESS. 12/25/18 14:54 Vital Signs Temperature 98.1 F 12/25/18 13:41 Pulse Rate 87 12/25/18 13:41 Respiratory Rate 18 12/25/18 13:41 Blood Pressure 118/69 12/25/18 13:41 O2 Sat by Pulse Oximetry (%) Laboratory Tests 12/23/18 12/23/18 12/23/18 06:00 06:00 06:00 WBC 7.6 RBC 4.47 Hgb 13.8 Hct 40.5 MCV 90.6 MCH 31.0 D MCHC 34.2 RDW 15.2 Plt Count 200 MPV 9.6 Sodium 139 Potassium 3.7 Chloride 103 Carbon Dioxide 28 Anion Gap 8 BUN 12 Creatinine 1.3 Creat Clearance w eGFR 57.31 Random Glucose 82 Calcium 9.3 Total Bilirubin 0.6 AST 32 ALT 43 Alkaline Phosphatase 93 Total Protein 8.7 H Albumin 4.5 RPR Titer Nonreactive LABS NOTED. SIGNIFICANT AMOUNT OF CERUMEN NOTED ON OTOSCOPE VISUALIZATION OF BILATERAL EARS. 12/25/18 14:57 Assessment: 12/25/18 14:55 WITHDRAWAL SYMPTOMS. CERUMEN IMPACTION. 12/25/18 14:57 Plan: CONTINUE DETOX. DEBROX DROPS TO BE APPLIED IN BILATERAL EARS BID FOR CERUMEN BUILDUP.
[2018-12-25 20:33] LABS: URINE APPEARANCE CLEAR; URINE BILIRUBIN NEGATIVE (<2.0 mg/dL); URINE COLOR STRAW; URINE GLUCOSE (UA) NEGATIVE (NEGATIVE); URINE KETONE NEGATIVE (NEGATIVE); URINE LEUK ESTERASE NEGATIVE (NEGATIVE); URINE NITRITE NEGATIVE (NEGATIVE); URINE PROTEIN NEGATIVE (NEGATIVE); URINE UROBILINOGEN NEGATIVE mg/dL (0.2-1.0)
[2018-12-25] MEDS: CARBAMIDE PEROXIDE 6.5% OTIC 15 ML BOTTLE AU SCH (22:20)
[2018-12-25] MEDS: THIAMINE HCL 100 MG TABLET (FP) PO SCH (22:25)
[2018-12-26] MEDS: PRENATAL VITAMINS W/ FOLIC ACID TABLET (FP) PO SCH (09:59)
[2018-12-26] MEDS: chlordiazePOXIDE HCL 10 MG CAPSULE PO SCH (10:00)
[2018-12-26] MEDS: IBUPROFEN 400 MG TABLET (FP) PO PRN ×2 (10:04→18:23)
[2018-12-26] MEDS: CARBAMIDE PEROXIDE 6.5% OTIC 15 ML BOTTLE AU SCH ×2 (10:35→22:42)
[2018-12-26] MEDS: LOPERAMIDE HCL 2 MG CAPSULE PO PRN (10:52)
--- NOTE | 2018-12-26 11:02 | PN ---
[facility] Progress Note (SOAP) Subjective: Nausea, Anxious, Diarrhea, Body Aches. Objective: PATIENT A & OX 3, OBSERVED AMBULATING ON UNIT UNASSISTED. IN NO ACUTE DISTRESS. 12/26/18 10:58 Vital Signs Temperature 98.5 F 12/26/18 09:17 Pulse Rate 84 12/26/18 09:17 Respiratory Rate 18 12/26/18 09:17 Blood Pressure 136/85 12/26/18 09:17 O2 Sat by Pulse Oximetry (%) Laboratory Tests 12/23/18 12/23/18 12/23/18 06:00 06:00 06:00 WBC 7.6 RBC 4.47 Hgb 13.8 Hct 40.5 MCV 90.6 MCH 31.0 D MCHC 34.2 RDW 15.2 Plt Count 200 MPV 9.6 Sodium 139 Potassium 3.7 Chloride 103 Carbon Dioxide 28 Anion Gap 8 BUN 12 Creatinine 1.3 Creat Clearance w eGFR 57.31 Random Glucose 82 Calcium 9.3 Total Bilirubin 0.6 AST 32 ALT 43 Alkaline Phosphatase 93 Total Protein 8.7 H Albumin 4.5 Urine Color Urine Appearance Urine pH Ur Specific [place] Urine Protein Urine Glucose (UA) Urine Ketones Urine Blood Urine Nitrite Urine Bilirubin Urine Urobilinogen Ur Leukocyte Esterase RPR Titer Nonreactive 12/25/18 19:00 WBC RBC Hgb Hct MCV MCH MCHC RDW Plt Count MPV Sodium Potassium Chloride Carbon Dioxide Anion Gap BUN Creatinine Creat Clearance w eGFR Random Glucose Calcium Total Bilirubin AST ALT Alkaline Phosphatase Total Protein Albumin Urine Color Straw Urine Appearance Clear Urine pH 7.0 Ur Specific [place] 1.010 Urine Protein Negative Urine Glucose (UA) Negative Urine Ketones Negative Urine Blood Negative Urine Nitrite Negative Urine Bilirubin Negative Urine Urobilinogen Negative Ur Leukocyte Esterase Negative RPR Titer LABS NOTED. 12/26/18 10:59 Assessment: 12/26/18 10:59 WITHDRAWAL SYMPTOMS. Plan: CONTINUE DETOX. PRN IMODIUM FOR DIARRHEA. PRN ZOFRAN SL FOR NAUSEA. INCREASE DAILY PO FLUID INTAKE. PATIENT INITIALLY SCHEDULED FOR D/C FROM DETOX UNIT TODAY, 12/26/2018. HOWEVER, DUE TO PRESENCE AND SEVERITY OF LINGERING WITHDRAWAL SYMPTOMS, PATIENT PERMITTED TO REMAIN ON DETOX UNIT UNTIL TOMORROW, 12/27/2018.
[2018-12-26] MEDS: THIAMINE HCL 100 MG TABLET (FP) PO SCH (22:43)
[2018-12-27] MEDS: IBUPROFEN 400 MG TABLET (FP) PO PRN (06:02)
[2018-12-27 06:12] VITALS: BP 108/63; PULSE 73; TEMP 97
--- NOTE | 2018-12-27 14:28 | DS ---
[facility] Detox Discharge Summary Admission Date: 12/22/18 Discharge Date: 12/27/18 - History Present History: Alcohol Dependence Additional Comments: 53 years old male admitted on 12/22/18 for alcohol withdrawal sx completed detox regimen [facility] - Physical Exam Results Vital Signs: Vital Signs Temperature 97 F L 12/27/18 06:11 Pulse Rate 73 12/27/18 06:11 Respiratory Rate 16 12/27/18 06:11 Blood Pressure 108/63 12/27/18 06:11 O2 Sat by Pulse Oximetry (%) Pertinent Admission Physical Exam Findings: alcohol withdrawal sx Laboratory Last Values WBC 7.6 K/mm3 (4.0-10.0) 12/23/18 06:00 RBC 4.47 M/mm3 (4.00-5.60) 12/23/18 06:00 Hgb 13.8 GM/dL (11.7-16.9) 12/23/18 06:00 Hct 40.5 % (35.4-49) 12/23/18 06:00 MCV 90.6 fl (80-96) 12/23/18 06:00 MCH 31.0 pg (25.7-33.7) D 12/23/18 06:00 MCHC 34.2 g/dl (32.0-35.9) 12/23/18 06:00 RDW 15.2 % (11.9-15.9) 12/23/18 06:00 Plt Count 200 K/MM3 (134-434) 12/23/18 06:00 MPV 9.6 fl (7.5-11.1) 12/23/18 06:00 Sodium 139 mmol/L (136-145) 12/23/18 06:00 Potassium 3.7 mmol/L (3.5-5.1) 12/23/18 06:00 Chloride 103 mmol/L (98-107) 12/23/18 06:00 Carbon Dioxide 28 mmol/L (21-32) 12/23/18 06:00 Anion Gap 8 MMOL/L (8-16) 12/23/18 06:00 BUN 12 mg/dL (7-18) 12/23/18 06:00 Creatinine 1.3 mg/dL (0.55-1.3) 12/23/18 06:00 Creat Clearance w eGFR 57.31 (>60) 12/23/18 06:00 Random Glucose 82 mg/dL (74-106) 12/23/18 06:00 Calcium 9.3 mg/dL (8.5-10.1) 12/23/18 06:00 Total Bilirubin 0.6 mg/dL (0.2-1) 12/23/18 06:00 AST 32 U/L (15-37) 12/23/18 06:00 ALT 43 U/L (13-61) 12/23/18 06:00 Alkaline Phosphatase 93 U/L (45-117) 12/23/18 06:00 Total Protein 8.7 g/dl (6.4-8.2) H 12/23/18 06:00 Albumin 4.5 g/dl (3.4-5.0) 12/23/18 06:00 Urine Color Straw 12/25/18 19:00 Urine Appearance Clear 12/25/18 19:00 Urine pH 7.0 (5.0-8.0) 12/25/18 19:00 Ur Specific [place] 1.010 (1.010-1.035) 12/25/18 19:00 Urine Protein Negative (NEGATIVE) 12/25/18 19:00 Urine Glucose (UA) Negative (NEGATIVE) 12/25/18 19:00 Urine Ketones Negative (NEGATIVE) 12/25/18 19:00 Urine Blood Negative (NEGATIVE) 12/25/18 19:00 Urine Nitrite Negative (NEGATIVE) 12/25/18 19:00 Urine Bilirubin Negative (<2.0 mg/dL) 12/25/18 19:00 Urine Urobilinogen Negative mg/dL (0.2-1.0) 12/25/18 19:00 Ur Leukocyte Esterase Negative (NEGATIVE) 12/25/18 19:00 RPR Titer Nonreactive (NONREACTIVE) 12/23/18 06:00 lab noted - Treatment Hospital Course: Detox Protocol Followed, Detoxed Safely, Responded well, Discharged Condition Good, Rehab Referral Accepted Patient has Accepted a Rehab Referral to: [facility] - Medication Discharge Medications: Ambulatory Orders Mirtazapine [Remeron -] 30 mg PO HS #30 tablet 08/06/18 Quetiapine Fumarate [Seroquel] 100 mg PO BID #60 tablet 08/06/18 Albuterol Sulfate Inhaler - [Ventolin HFA Inhaler -] 2 inh PO Q4H #1 inhaler - Diagnosis (1) Alcohol dependence Status: Acute Qualifiers: Substance use status: uncomplicated Qualified Code(s): F10.20 - Alcohol dependence, uncomplicated (2) Substance induced mood disorder Status: Suspected (3) Asthma Status: Chronic Qualifiers: Asthma severity: mild Asthma persistence: intermittent Asthma complication type: uncomplicated Qualified Code(s): J45.20 - Mild intermittent asthma, uncomplicated (4) Nicotine dependence Status: Acute Qualifiers: Nicotine product type: cigarettes Substance use status: in withdrawal Qualified Code(s): F17.213 - Nicotine dependence, cigarettes, with withdrawal - AMA Did Patient Leave Against Medical Advice: No
== END 2018-12-27 07:27 | disposition home or self-care (01) | DRG 775 ==
LOC: YASAS 08:27 → Y3N 11:17
PROVIDERS: ADMIT Surgery; ATTEND Surgery
PROC: HZ2ZZZZ Detoxification Services for Substance Abuse Treatment (ICD-10-PCS; principal; 2018-12-22)
DX: F10.230 Alcohol dependence with withdrawal, uncomplicated (principal); F17.210 Nicotine dependence, cigarettes, uncomplicated; F31.9 Bipolar disorder, unspecified; F20.9 Schizophrenia, unspecified; F19.24 Other psychoactive substance dependence with psychoactive substance-induced mood disorder; R10.30 Lower abdominal pain, unspecified; R19.7 Diarrhea, unspecified; H61.23 Impacted cerumen, bilateral; Z86.19 Personal history of other infectious and parasitic diseases
CPT/HCPCS: 36415; 80053; 81003; 85027; 86593; Q0162

== ENCOUNTER 2019-09-18 10:22 | Inpatient (IN) | payer OTHER ==
[2019-09-18 10:39] VITALS: BMI 31.3
--- NOTE | 2019-09-18 11:10 | HP ---
CIWA Score Nausea/Vomitin Muscle Tremors: 4-Moderate,w/Arms Extend Anxiety: 4-Mod. Anxious/Guarded Agitation: 1-Slight > Activity Paroxysmal Sweats: 1-Minimal Palms Moist Orientation: 1-Uncertain about Date Tacttile Disturbances: 0-None Auditory Disturbances: 1-Very Mild Visual Disturbances: 1-Very Mild Sensitivity Headache: 2-Mild CIWA-Ar Total Score: 17 - Admission Criteria OASAS Guidelines: Admission for Medically Managed Detox: Requires at least one of the followin. CIWA greater than 12 2. Seizures within the past 24 hours 3. Delirium tremens within the past 24 hours 4. Hallucinations within the past 24 hours 5. Acute intervention needed for co occurring medical disorder 6. Acute intervention needed for co occurring psychiatric disorder 7. Severe withdrawal that cannot be handled at a lower level of care (continued vomiting, continued diarrhea, abnormal vital signs) requiring intravenous medication and/or fluids 8. Patient presents the following: CIWA greater than 12 Admission Criteria Met: Admission criteria met Admitting History and Physical - Admission History Source: Patient, Medical Record - Smoking History Smoking history: Current every day smoker Have you smoked in the past 12 months: Yes Aproximately how many cigarettes per day: 10 - Alcohol/Substance Use Hx Alcohol Use: Yes History of Substance Use: reports: Cocaine, Tranquilizers - Social History Usual Living Arrangement: Yes: Alone Admission [facility] Chief Complaint: I'm just tired, I want to stay stopped, the devil is working on me and I am fighting like hell Allergies/Adverse Reactions: Allergies Allergy/AdvReac Type Severity Reaction Status Date / Time No Known Allergies Allergy Verified 09/18/19 10:30 History of Present Illness: 53 yo gentleman here for detox from alcohol - states also using xanax but urine tox negative for benzo. Patient last here 12/22/16 for detox - he states he did well for several months - he was going to 12 step meetings but then ' psychologically' he just wanted to use again. He states he starts drinking first thing in the morning as 'the day ain't right without it'. Patient has a history of back pain and history of abusing percocet but states he has not used it in awhile. He denies being on methadone or suboxone - it seems he began to seek alprazolam when he went off the opiates. States he was on naltrexone but never did Vivitrol. He also stopped the naltrexone and relapsed shortly there after. He currently lives in a skilled nursing but states he did get an apartment which he expects to move into by the end of the month. He is not on disability 'yet'. Patient with a history of drug related seizures and black outs and did try to overdose on his psych meds. He currently sees psych and is on meds - denies feeling suicidal at present. [place]: Others' Prescriptions Patient Name: Phil Escobar Date: 1965 Address: [facility] [address] [place] [id number] Sex: Male Rx Written Rx Dispensed Drug Quantity Days Supply Prescriber Name 09/06/2019 09/08/2019 oxycodone-acetaminophen 10-325 mg tab 14 7 Rances, Sharad Zainab 01/20/2019 01/20/2019 oxycodone-acetaminophen 10-325 mg tab 60 30 Rances, Sharad Lamb 12/16/2018 12/17/2018 oxycodone-acetaminophen 10-325 mg tab 60 30 Rances, Sharad Lamb 11/19/2018 11/19/2018 oxycodone-acetaminophen 10-325 mg tab 60 30 Rances, Sharad R 11/13/2018 11/13/2018 oxycodone-acetaminophen 10-325 mg tab 14 7 Rances, Sharad Zainab 09/23/2018 09/23/2018 oxycodone-acetaminophen 10-325 mg tab 60 30 Roberta Pugh Exam Limitations: No Limitations - Ebola screening Have you traveled outside of the country in the last 21 days: No Have you had contact with anyone from an Ebola affected area: No - Review of Systems Constitutional: Loss of Appetite, Changes in sleep, Weakness EENT: reports: Blurred Vision Respiratory: reports: SOB with Exertion (because of my smoking my breathing gets affected) Cardiac: reports: No Symptoms Reported GI: reports: Nausea, Poor Appetite, Poor Fluid Intake, Abdominal cramping : reports: Frequency Musculoskeletal: reports: Back Pain, Muscle Pain, Muscle Weakness Integumentary: reports: Dryness Neuro: reports: Headache, Numbness, Tingling, Tremors, Weakness Endocrine: reports: No Symptoms Reported Hematology: reports: No Symptoms Reported Psychiatric: reports: Judgement Intact, Mood/Affect Appropiate, Anxious Other Systems: Reviewed and Negative Patient History - Patient Medical History Hx Anemia: No Hx Asthma: Yes (on inhalers) Hx Chronic Obstructive Pulmonary Disease (COPD): Yes Hx Cancer: No Hx Cardiac Disorders: No Hx Congestive Heart Failure: No Hx Hypertension: Yes Hx Hypercholesterolemia: No Hx Pacemaker: No HX Cerebrovascular Accident: No Hx Seizures: Yes (drug related) Hx Dementia: No Hx Diabetes: Yes (on metformin) Hx Gastrointestinal Disorders: No Hx Liver Disease: No Hx Genitourinary Disorders: No Hx Sexually Transmitted Disorders: No Hx Renal Disease (ESRD): No Hx Thyroid Disease: No Hx Human Immunodeficiency Virus (HIV): No Hx Hepatitis C: No Hx Depression: Yes Hx Suicide Attempt: No Hx Bipolar Disorder: Yes (Seroquel & Remeron) Hx Schizophrenia: Yes Other Medical History: back pain, blind left eye - Patient Surgical History Past Surgical History: Yes Hx Neurologic Surgery: No Hx Cataract Extraction: No Hx Cardiac Surgery: No Hx Lung Surgery: No Hx Breast Surgery: Yes (Gynecomastia) Hx Breast Biopsy: No Hx Abdominal Surgery: No Hx Appendectomy: Yes (1977) Hx Cholecystectomy: Yes (2016) Hx Genitourinary Surgery: No Hx Section: No Hx Orthopedic Surgery: Yes (laminectomy April 2018) Anesthesia Reaction: No - PPD History Previous Implant?: Yes Documented Results: Positive w/o proof (states treated for nine months with INH in 1995) Implanted On Prior [facility] Admission?: No Results: NEG CXR 08/2017 PPD to be Administered?: No - Reproductive History Patient is a Female of Child Bearing Age (11 -55 yrs old): No - Smoking Cessation Smoking history: Current every day smoker Have you smoked in the past 12 months: Yes Aproximately how many cigarettes per day: 10 Cigars Per Day: 0 Hx Chewing Tobacco Use: No Initiated information on smoking cessation: Yes 'Breaking Loose' booklet given: 09/18/19 (give on floor) - Substance & Tx. History Hx Alcohol Use: Yes Hx Substance Use: Yes Substance Use Type: Alcohol, Cocaine, Tranquilizers Hx Substance Use Treatment: Yes (detox, rehab) - Substances abused Alcohol Substance route: Oral Frequency: Daily Amount used: six 24 oz beers; fireballs - 1 pint Age of first use: 10 Date of last use: 09/18/19 Alprazolam (Xanax) Substance route: Oral Frequency: 3-6 times per week Amount used: 2-3 pills Age of first use: 30 Date of last use: 09/17/19 Cocaine Substance route: Inhalation Frequency: Daily Amount used: $100-1000 Age of first use: 26 Date of last use: 09/18/19 Other Other (specify): percocet Substance route: Oral Frequency: 1-2 times per week Amount used: 2 pills Age of first use: 33 Date of last use: 09/14/19 Admission Physical Exam [facility] - Vital Signs Vital Signs: Vital Signs - 24 hr 09/18/19 10:33 Temperature 96.6 F L Pulse Rate 104 H Respiratory 20 Rate Blood Pressure 131/82 - Physical General Appearance: Yes: Nourished, Appropriately Dressed, Moderate Distress, Tremorous, Anxious, Other (dentures - upper and lower) HEENTM: Yes: Hearing grossly Normal, Normocephalic, Normal Voice, Pharynx Normal , Other (blind left eye) Respiratory: Yes: Normal Breath Sounds, No Respiratory Distress Neck: Yes: No masses,lesions,Nodules Breast: Yes: Breast Exam Deferred Cardiology: Yes: Regular Rhythm, Tachycardia Abdominal: Yes: Soft, Protuberent Genitourinary: Yes: Frequency Back: Yes: Normal Inspection, Decreased Range of Motion, Surgical Scar (healed vertical surgica scar lower back) Musculoskeletal: Yes: full range of Motion, Gait Steady, Back pain, Muscle Pain Extremities: Yes: Normal Inspection, Non-Tender, Tremors Neurological: Yes: Alert, Motor Strength 5/5, Normal Mood/Affect, Normal Response, Numbness Integumentary: Yes: Normal Color, Dry, Warm Lymphatic: Yes: Within Normal Limits - Addiitonal Findings: BGM=98 - Diagnostic (1) Alcohol dependence with uncomplicated withdrawal Current Visit: Yes Status: Chronic (2) Cocaine dependence, uncomplicated Current Visit: Yes Status: Chronic (3) Sedative hypnotic or anxiolytic dependence Current Visit: Yes Status: Suspected (4) Lumbago Current Visit: Yes Status: Chronic Qualifiers: Chronicity: chronic Back pain laterality: bilateral Sciatica laterality: sciatica laterality unspecified (5) HTN (hypertension) Current Visit: Yes Status: Acute Qualifiers: Hypertension type: essential hypertension Qualified Code(s): I10 - Essential (primary) hypertension (6) Asthma Current Visit: Yes Status: Chronic Qualifiers: Asthma severity: mild Asthma persistence: intermittent Asthma complication type: uncomplicated Qualified Code(s): J45.20 - Mild intermittent asthma, uncomplicated (7) History of back surgery Current Visit: Yes Status: Resolved (8) Blindness of left eye Current Visit: Yes Status: Chronic Qualifiers: Right eye visual impairment category: right - normal vision Qualified Code( s): H54.40 - Blindness, one eye, unspecified eye Comment: related to glaucoma (9) Diabetes mellitus treated with oral medication Current Visit: Yes Status: Chronic Comment: states blood sugar never over 200 (10) PPD positive, treated Current Visit: Yes Status: Chronic Comment: states received INH x 9 months Cleared for Admission [facility] - Detox or Rehab S Level of Care: Medically Managed Detox Regimen/Protocol: Valium Breathalyzer - Breathalyzer Breathalyzer: 0 Urine Drug Screen - Test Device Lot number: [id number] Expiration date: 05/12/21 - Control Is test valid?: Yes - Results Drug screen NEGATIVE: No Urine drug screen results: [facility]-Cocaine Inpatient Rehab Admission - Rehab Decision to Admit Inpatient rehab admission?: No
[2019-09-18] MEDS ORDERED: ACETAMINOPHEN 325 MG TABLET (FP) PO PRN ×2 (11:27)
[2019-09-18] MEDS ORDERED: IBUPROFEN 400 MG TABLET (FP) PO PRN (11:27)
[2019-09-18] MEDS ORDERED: MAGNESIUM HYDROX 2400MG/30ML ORAL SUSPENSION 30 ML CUP PO PRN (11:27)
[2019-09-18] MEDS ORDERED: ONDANSETRON *ODT* 4 MG TABLET SL PRN (11:27)
[2019-09-18] MEDS ORDERED: MENTHOL/PHENOL 1 EACH UD MM PRN (11:27)
[2019-09-18] MEDS ORDERED: MAG HYDROX/AL HYDROX/SIMETH 30 ML UNIT-DOSE CUP PO PRN (11:27)
[2019-09-18] MEDS ORDERED: MELATONIN 5 MG TABLETS PO PRN (11:27)
[2019-09-18] MEDS ORDERED: MAGNESIUM CITRATE 300 ML BOTTLE PO PRN (11:27)
[2019-09-18] MEDS ORDERED: BISMUTH SUBSALICYLATE 524 MG/30 ML UD PO PRN (11:27)
[2019-09-18] MEDS ORDERED: NICOTINE POLACRILEX 4 MG GUM BUC PRN (11:27)
[2019-09-18] MEDS ORDERED: diazePAM 5 MG TABLET PO ONE (11:27)
[2019-09-18] MEDS ORDERED: ALBUTEROL SO4 8 GM HFA INHALER IH PRN (11:33)
[2019-09-18] MEDS: IBUPROFEN 400 MG TABLET (FP) PO PRN ×2 (13:01→23:07)
[2019-09-18] MEDS: LIDOCAINE 5% TOPICAL PATCH TP SCH (13:04)
[2019-09-18] MEDS: NICOTINE 21 MG/24 HOURS TOPICAL PATCH TD SCH (13:07)
[2019-09-18] MEDS: BUDESONIDE/FORMETEROL FUMARATE 160/4.5 mcg INHALER IH SCH ×2 (13:07→23:14)
[2019-09-18] MEDS: diazePAM 5 MG TABLET PO SCH ×3 (15:04→23:49)
[2019-09-18] MEDS: diazePAM 5 MG TABLET PO PRN (17:16)
[2019-09-18] MEDS: metFORMIN HCL 500 MG TABLET (FP) PO SCH (17:30)
[2019-09-18] MEDS: METHOCARBAMOL 500 MG TABLET PO PRN (17:49)
[2019-09-18] MEDS ORDERED: QUEtiapine FUMARATE 100 MG TABLET (FP) PO ONE (22:00)
[2019-09-18] MEDS ORDERED: MIRTAZAPINE 30 MG TABLET (FP) PO ONE (22:00)
[2019-09-18] MEDS: LIDOCAINE PATCH REMOVAL MC SCH (23:18)
[2019-09-18] MEDS: THIAMINE HCL 100 MG TABLET (FP) PO SCH (23:49)
[2019-09-19] MEDS ORDERED: diazePAM 5 MG TABLET PO SCH (06:00)
[2019-09-19] MEDS: diazePAM 5 MG TABLET PO SCH ×2 (07:18→10:50)
[2019-09-19] MEDS: metFORMIN HCL 500 MG TABLET (FP) PO SCH ×2 (07:19→17:04)
[2019-09-19 10:07] LABS: ALBUMIN 3.4 g/dl (3.4-5.0); BILIRUBIN,TOTAL 0.5 mg/dL (0.2-1); BLOOD UREA NITROGEN 10.8 mg/dL (7-18); CALCIUM 8.9 mg/dL (8.5-10.1); CREATININE 1.2 mg/dL (0.55-1.3); POTASSIUM 3.8 mmol/L (3.5-5.1); TOT PROT 6.7 g/dl (6.4-8.2)
[2019-09-19 10:08] LABS: HEMATOCRIT 37.8 % (35.4-49); HEMOGLOBIN 12.8 GM/dL (11.7-16.9); MCH 29.5 pg (25.7-33.7); MCHC 33.8 g/dl (32.0-35.9); MEAN CELL VOLUME 87.1 fl (80-96); MEAN PLT VOLUME 9.2 fl (7.5-11.1); PLATELET COUNT 163 K/MM3 (134-434); RBC 4.35 M/mm3 (4.00-5.60); RDW 15.3 % (11.9-15.9); WHITE BLOOD COUNT 3.5 K/mm3 (4.0-10.0)
[2019-09-19] MEDS: METHOCARBAMOL 500 MG TABLET PO PRN (10:52)
[2019-09-19] MEDS: IBUPROFEN 400 MG TABLET (FP) PO PRN (10:53)
[2019-09-19] MEDS: LISINOPRIL 10 MG TABLET (FP) PO SCH (10:56)
[2019-09-19] MEDS: LIDOCAINE 5% TOPICAL PATCH TP SCH (10:56)
[2019-09-19] MEDS: PRENATAL VITAMINS W/ FOLIC ACID TABLET (FP) PO SCH (10:56)
[2019-09-19] MEDS: BUDESONIDE/FORMETEROL FUMARATE 160/4.5 mcg INHALER IH SCH ×2 (10:56→22:53)
[2019-09-19] MEDS: NICOTINE 21 MG/24 HOURS TOPICAL PATCH TD SCH (10:56)
--- NOTE | 2019-09-19 15:11 | CONSULT ---
[facility] Psychiatric Consult - Data Date of interview: 09/19/19 Admission source: [facility] Identifying data: Spare Person approached patient for psychiatric consultation. Patient stated, " I don't need to see you. I'm fine." Psychiatric consultation refused. Nursing staff informed.
--- NOTE | 2019-09-19 15:49 | PN ---
[facility] CIWA - CIWA Score Nausea/Vomitin-Mild Nausea/No Vomiting Muscle Tremors: 3 Anxiety: 2 Agitation: 2 Paroxysmal Sweats: 3 Orientation: 0-Oriented Tacttile Disturbances: 0-None Auditory Disturbances: 0-None Visual Disturbances: 0-None Headache: 0-None Present CIWA-Ar Total Score: 11 S Progress Note (SOAP) Subjective: Interrupted sleep, tremor, chills, sweating, headache Objective: 09/19/19 15:43 Last Vital Signs Temp Pulse Resp BP Pulse Ox 98.1 F 107 H 18 132/100 09/19/19 14:57 09/19/19 14:57 09/19/19 14:57 09/19/19 14:57 Tachycardia and elevated b/p noted (has htn, on medication) Laboratory Tests 09/18/19 09/18/19 09/19/19 11:55 16:45 07:04 WBC RBC Hgb Hct MCV MCH MCHC RDW Plt Count MPV Sodium Potassium Chloride Carbon Dioxide Anion Gap BUN Creatinine Est GFR (CKD-EPI)AfAm Est GFR (CKD-EPI)NonAf POC Glucometer 98 122 112 Random Glucose Calcium Total Bilirubin AST ALT Alkaline Phosphatase Total Protein Albumin RPR Titer HIV 1&2 Antibody Screen HIV P24 Antigen 09/19/19 09/19/19 09/19/19 07:50 07:50 07:50 WBC 3.5 L RBC 4.35 Hgb 12.8 Hct 37.8 MCV 87.1 MCH 29.5 MCHC 33.8 RDW 15.3 Plt Count 163 MPV 9.2 Sodium 141 Potassium 3.8 Chloride 106 Carbon Dioxide 30 Anion Gap 5 L BUN 10.8 Creatinine 1.2 Est GFR (CKD-EPI)AfAm 78.43 Est GFR (CKD-EPI)NonAf 67.67 POC Glucometer Random Glucose 88 Calcium 8.9 Total Bilirubin 0.5 AST 14 L ALT 22 Alkaline Phosphatase 76 Total Protein 6.7 Albumin 3.4 RPR Titer HIV 1&2 Antibody Screen Negative HIV P24 Antigen Negative 09/19/19 07:50 WBC RBC Hgb Hct MCV MCH MCHC RDW Plt Count MPV Sodium Potassium Chloride Carbon Dioxide Anion Gap BUN Creatinine Est GFR (CKD-EPI)AfAm Est GFR (CKD-EPI)NonAf POC Glucometer Random Glucose Calcium Total Bilirubin AST ALT Alkaline Phosphatase Total Protein Albumin RPR Titer Nonreactive HIV 1&2 Antibody Screen HIV P24 Antigen Labs reviewed Assessment: 09/19/19 15:47 Withdrawal sxs Noted with tachycardia and HTN Plan: Continue detox Encouraged PO water intake Tachycardia: most likely due to withdrawal, monitor pulse, consider EKG if tachycardia persist HTN: continue antihypertensive medication, monitor b/p
[2019-09-19] MEDS: diazePAM 5 MG TABLET PO PRN ×2 (15:57→22:52)
[2019-09-19] MEDS: hydrOXYzine PAMOATE 25 MG CAPSULE (FP) PO PRN (17:05)
[2019-09-19] MEDS ORDERED: diazePAM 5 MG TABLET PO ONE (18:00)
[2019-09-19] MEDS: THIAMINE HCL 100 MG TABLET (FP) PO SCH (22:51)
[2019-09-19] MEDS: LIDOCAINE PATCH REMOVAL MC SCH (22:55)
--- NOTE | 2019-09-20 01:10 | EKG ---
Test Reason : Blood Pressure : / mmHG Vent. Rate : 088 BPM Atrial Rate : 088 BPM P-R Int : 154 ms QRS Dur : 106 ms QT Int : 348 ms P-R-T Axes : 067 074 072 degrees QTc Int : 421 ms NORMAL SINUS RHYTHM NONSPECIFIC T WAVE ABNORMALITY ABNORMAL ECG WHEN COMPARED WITH ECG OF 06-AUG-2018 11:44, LIKELY NO SIGNIFICANT CHANGES Confirmed by BARTOLO HENAO MD ([id number]) on 09/20/2019 1:10:09 AM Referred By: Confirmed By:BARTOLO HENAO MD
[2019-09-20] MEDS ORDERED: diazePAM 5 MG TABLET PO SCH (06:00)
[2019-09-20] MEDS: diazePAM 5 MG TABLET PO SCH ×3 (06:38→22:06)
[2019-09-20] MEDS: metFORMIN HCL 500 MG TABLET (FP) PO SCH ×2 (07:01→17:25)
[2019-09-20] MEDS: PRENATAL VITAMINS W/ FOLIC ACID TABLET (FP) PO SCH (11:25)
[2019-09-20] MEDS: LISINOPRIL 10 MG TABLET (FP) PO SCH (11:25)
[2019-09-20] MEDS: BUDESONIDE/FORMETEROL FUMARATE 160/4.5 mcg INHALER IH SCH ×2 (11:26→22:44)
[2019-09-20] MEDS: NICOTINE 21 MG/24 HOURS TOPICAL PATCH TD SCH (11:26)
[2019-09-20] MEDS: LIDOCAINE 5% TOPICAL PATCH TP SCH (11:27)
--- NOTE | 2019-09-20 12:18 | PN ---
[facility] CIWA - CIWA Score Nausea/Vomitin-Mild Nausea/No Vomiting Muscle Tremors: 2 Anxiety: 2 Agitation: 2 Paroxysmal Sweats: No Perspiration Orientation: 0-Oriented Tacttile Disturbances: 1-Very Mild Itch/Numbness Auditory Disturbances: 0-None Visual Disturbances: 0-None Headache: 1-Very Mild CIWA-Ar Total Score: 9 [facility] Progress Note (SOAP) Subjective: alert,irritable,anxious,interrupted sleep,tremor Objective: 09/20/19 12:17 Vital Signs Temperature 98.1 F 09/20/19 11:30 Pulse Rate 87 09/20/19 11:30 Respiratory Rate 18 09/20/19 11:30 Blood Pressure 97/69 09/20/19 11:30 O2 Sat by Pulse Oximetry (%) Assessment: 09/20/19 12:17 withdrawal symptom Plan: continue detox valium regimen,
[2019-09-20] MEDS: diazePAM 5 MG TABLET PO PRN (17:51)
[2019-09-20] MEDS: IBUPROFEN 400 MG TABLET (FP) PO PRN (17:56)
[2019-09-20] MEDS: METHOCARBAMOL 500 MG TABLET PO PRN (17:56)
[2019-09-20] MEDS: THIAMINE HCL 100 MG TABLET (FP) PO SCH (22:06)
[2019-09-20] MEDS: hydrOXYzine PAMOATE 25 MG CAPSULE (FP) PO PRN (22:07)
[2019-09-20] MEDS: LIDOCAINE PATCH REMOVAL MC SCH (22:44)
[2019-09-21] MEDS: metFORMIN HCL 500 MG TABLET (FP) PO SCH ×2 (06:48→17:54)
--- NOTE | 2019-09-21 10:25 | PN ---
[facility] CIWA - CIWA Score Nausea/Vomitin-No Nausea/No Vomiting Muscle Tremors: 1-None Visible, but Lyman Anxiety: 2 Agitation: 2 Paroxysmal Sweats: No Perspiration Orientation: 0-Oriented Tacttile Disturbances: 0-None Auditory Disturbances: 0-None Visual Disturbances: 0-None Headache: 1-Very Mild CIWA-Ar Total Score: 6 [facility] Progress Note (SOAP) Subjective: alert,irritable,anxious,interrupted sleep Objective: 09/21/19 10:24 Vital Signs Temperature 98.1 F 09/21/19 09:17 Pulse Rate 95 H 09/21/19 09:17 Respiratory Rate 20 09/21/19 09:17 Blood Pressure 125/82 09/21/19 09:17 O2 Sat by Pulse Oximetry (%) Assessment: 09/21/19 10:24 withdrawal symptom Plan: continue detox valium regimen,discharge in am
[2019-09-21] MEDS: PRENATAL VITAMINS W/ FOLIC ACID TABLET (FP) PO SCH (10:34)
[2019-09-21] MEDS: NICOTINE 21 MG/24 HOURS TOPICAL PATCH TD SCH (10:35)
[2019-09-21] MEDS: LISINOPRIL 10 MG TABLET (FP) PO SCH (10:35)
[2019-09-21] MEDS: LIDOCAINE 5% TOPICAL PATCH TP SCH (10:35)
[2019-09-21] MEDS: diazePAM 5 MG TABLET PO SCH ×2 (10:36→21:44)
[2019-09-21] MEDS: BUDESONIDE/FORMETEROL FUMARATE 160/4.5 mcg INHALER IH SCH ×2 (10:39→21:45)
[2019-09-21] MEDS: hydrOXYzine PAMOATE 25 MG CAPSULE (FP) PO PRN (12:30)
[2019-09-21] MEDS: THIAMINE HCL 100 MG TABLET (FP) PO SCH (21:44)
[2019-09-21] MEDS: LIDOCAINE PATCH REMOVAL MC SCH (21:45)
[2019-09-21] MEDS: IBUPROFEN 400 MG TABLET (FP) PO PRN (21:45)
[2019-09-21] MEDS: METHOCARBAMOL 500 MG TABLET PO PRN (21:46)
[2019-09-22] MEDS ORDERED: diazePAM 5 MG TABLET PO ONE ×2 (06:00→10:00)
[2019-09-22] MEDS: metFORMIN HCL 500 MG TABLET (FP) PO SCH (06:06)
[2019-09-22] MEDS: hydrOXYzine PAMOATE 25 MG CAPSULE (FP) PO PRN (08:50)
--- NOTE | 2019-09-22 09:17 | DS ---
[facility] Detox Discharge Summary Admission Date: 09/18/19 Discharge Date: 09/22/19 - History Present History: Alcohol Dependence, Cannabis Dependence, Cocaine Dependence, Sedative Dependence - Physical Exam Results Vital Signs: Vital Signs Temperature 97.7 F 09/22/19 06:52 Pulse Rate 76 09/22/19 06:52 Respiratory Rate 18 09/22/19 06:52 Blood Pressure 100/62 09/22/19 06:52 O2 Sat by Pulse Oximetry (%) Pertinent Admission Physical Exam Findings: Vital Signs Temperature 97.7 F 09/22/19 06:52 Pulse Rate 76 09/22/19 06:52 Respiratory Rate 18 09/22/19 06:52 Blood Pressure 100/62 09/22/19 06:52 O2 Sat by Pulse Oximetry (%) Laboratory Tests 09/18/19 09/18/19 09/19/19 11:55 16:45 07:04 WBC RBC Hgb Hct MCV MCH MCHC RDW Plt Count MPV Sodium Potassium Chloride Carbon Dioxide Anion Gap BUN Creatinine Est GFR (CKD-EPI)AfAm Est GFR (CKD-EPI)NonAf POC Glucometer 98 122 112 Random Glucose Calcium Total Bilirubin AST ALT Alkaline Phosphatase Total Protein Albumin RPR Titer HIV 1&2 Antibody Screen HIV P24 Antigen 09/19/19 09/19/19 09/19/19 07:50 07:50 07:50 WBC 3.5 L RBC 4.35 Hgb 12.8 Hct 37.8 MCV 87.1 MCH 29.5 MCHC 33.8 RDW 15.3 Plt Count 163 MPV 9.2 Sodium 141 Potassium 3.8 Chloride 106 Carbon Dioxide 30 Anion Gap 5 L BUN 10.8 Creatinine 1.2 Est GFR (CKD-EPI)AfAm 78.43 Est GFR (CKD-EPI)NonAf 67.67 POC Glucometer Random Glucose 88 Calcium 8.9 Total Bilirubin 0.5 AST 14 L ALT 22 Alkaline Phosphatase 76 Total Protein 6.7 Albumin 3.4 RPR Titer HIV 1&2 Antibody Screen Negative HIV P24 Antigen Negative 09/19/19 09/19/19 09/20/19 07:50 16:35 06:37 WBC RBC Hgb Hct MCV MCH MCHC RDW Plt Count MPV Sodium Potassium Chloride Carbon Dioxide Anion Gap BUN Creatinine Est GFR (CKD-EPI)AfAm Est GFR (CKD-EPI)NonAf POC Glucometer 110 65 Random Glucose Calcium Total Bilirubin AST ALT Alkaline Phosphatase Total Protein Albumin RPR Titer Nonreactive HIV 1&2 Antibody Screen HIV P24 Antigen 09/20/19 09/20/19 09/21/19 06:57 16:16 06:47 WBC RBC Hgb Hct MCV MCH MCHC RDW Plt Count MPV Sodium Potassium Chloride Carbon Dioxide Anion Gap BUN Creatinine Est GFR (CKD-EPI)AfAm Est GFR (CKD-EPI)NonAf POC Glucometer 89 117 114 Random Glucose Calcium Total Bilirubin AST ALT Alkaline Phosphatase Total Protein Albumin RPR Titer HIV 1&2 Antibody Screen HIV P24 Antigen 09/21/19 09/22/19 16:25 06:04 WBC RBC Hgb Hct MCV MCH MCHC RDW Plt Count MPV Sodium Potassium Chloride Carbon Dioxide Anion Gap BUN Creatinine Est GFR (CKD-EPI)AfAm Est GFR (CKD-EPI)NonAf POC Glucometer 119 99 Random Glucose Calcium Total Bilirubin AST ALT Alkaline Phosphatase Total Protein Albumin RPR Titer HIV 1&2 Antibody Screen HIV P24 Antigen aaox3 ambulating no acute distress - Treatment Hospital Course: Detox Protocol Followed, Detoxed Safely, Responded well, Discharged Condition Good, Rehab Referral Accepted Patient has Accepted a Rehab Referral to: pt referred to [facility] inpatient rehab - Medication Discharge Medications: Ambulatory Orders Mirtazapine [Remeron -] 30 mg PO HS #30 tablet 08/06/18 Quetiapine Fumarate [Seroquel -] 100 mg PO BID #60 tablet 08/06/18 Albuterol Sulfate Inhaler - [Ventolin HFA Inhaler -] 2 inh PO Q4H PRN 09/18/19 Fluticasone Propionate [Flovent Hfa] 110 mcg IH BID 09/18/19 Lisinopril [Prinivil] 10 mg PO DAILY 09/18/19 metFORMIN HCL [Metformin HCl] 500 mg PO BID 09/18/19 - Diagnosis (1) HTN (hypertension) Current Visit: Yes Status: Chronic Qualifiers: Hypertension type: essential hypertension Qualified Code(s): I10 - Essential (primary) hypertension (2) Alcohol dependence with uncomplicated withdrawal Current Visit: Yes Status: Chronic (3) Asthma Current Visit: Yes Status: Chronic Qualifiers: Asthma severity: mild Asthma persistence: intermittent Asthma complication type: uncomplicated Qualified Code(s): J45.20 - Mild intermittent asthma, uncomplicated (4) Blindness of left eye Current Visit: Yes Status: Chronic Qualifiers: Right eye visual impairment category: right - normal vision Qualified Code( s): H54.40 - Blindness, one eye, unspecified eye (5) Cocaine dependence, uncomplicated Current Visit: Yes Status: Chronic (6) Diabetes mellitus treated with oral medication Current Visit: Yes Status: Chronic (7) Lumbago Current Visit: Yes Status: Chronic Qualifiers: Chronicity: chronic Back pain laterality: bilateral Sciatica laterality: sciatica laterality unspecified (8) PPD positive, treated Current Visit: Yes Status: Chronic (9) Sedative hypnotic or anxiolytic dependence Current Visit: Yes Status: Suspected (10) History of back surgery Current Visit: Yes Status: Resolved (11) Insomnia Current Visit: No Status: Acute Qualifiers: Insomnia type: unspecified Qualified Code(s): G47.00 - Insomnia, unspecified (12) Nicotine dependence Current Visit: Yes Status: Chronic Qualifiers: Nicotine product type: cigarettes Substance use status: uncomplicated Qualified Code(s): F17.210 - Nicotine dependence, cigarettes, uncomplicated (13) Sedative, hypnotic or anxiolytic dependence with withdrawal with perceptual disturbance Current Visit: Yes Status: Chronic (14) Substance-induced sleep disorder Current Visit: No Status: Acute (15) Substance-induced sleep disorder Current Visit: No Status: Acute (16) Uncomplicated opioid dependence Current Visit: Yes Status: Chronic (17) Bipolar disorder Current Visit: No Status: Chronic (18) Cannabis dependence Current Visit: No Status: Chronic (19) History of bipolar disorder Current Visit: No Status: Suspected (20) History of positive PPD Current Visit: No Status: Suspected (21) Psychiatric disorder Current Visit: No Status: Suspected (22) Substance induced mood disorder Current Visit: No Status: Suspected (23) Schizoaffective disorder Current Visit: No Status: Ruled-out - AMA Did Patient Leave Against Medical Advice: No
[2019-09-22] MEDS ORDERED: diazePAM 5 MG TABLET PO SCH (10:00)
[2019-09-22 11:13] VITALS: BP 106/64; PULSE 92; TEMP 97.5
== END 2019-09-22 11:19 | disposition home or self-care (01) | DRG 774 ==
LOC: YASAS 10:22 → UNDOADMIN 11:56 → Y6N 11:56 → UNDODISIN 09-22 11:19
PROVIDERS: ADMIT Allergy & Immunology; ATTEND Allergy & Immunology
PROC: HZ2ZZZZ Detoxification Services for Substance Abuse Treatment (ICD-10-PCS; principal; 2019-09-18)
DX: F10.230 Alcohol dependence with withdrawal, uncomplicated (principal); F13.230 Sedative, hypnotic or anxiolytic dependence with withdrawal, uncomplicated; F14.20 Cocaine dependence, uncomplicated; F12.20 Cannabis dependence, uncomplicated; F17.210 Nicotine dependence, cigarettes, uncomplicated; F19.282 Other psychoactive substance dependence with psychoactive substance-induced sleep disorder; F19.24 Other psychoactive substance dependence with psychoactive substance-induced mood disorder; F31.9 Bipolar disorder, unspecified; G47.00 Insomnia, unspecified; I10 Essential (primary) hypertension; J45.20 Mild intermittent asthma, uncomplicated; E11.9 Type 2 diabetes mellitus without complications; Z79.84 Long term (current) use of oral hypoglycemic drugs; M54.41 Lumbago with sciatica, right side; M54.42 Lumbago with sciatica, left side; H54.62 Unqualified visual loss, left eye, normal vision right eye; R76.11 Nonspecific reaction to tuberculin skin test without active tuberculosis; Z98.890 Other specified postprocedural states
CPT/HCPCS: 36415; 71046-TC-FY; 80053; 82962; 85027; 86593; 87389; 93005; 93010; Q0162

== ENCOUNTER 2020-05-28 09:09 | Inpatient (IN) | payer OTHER ==
--- NOTE | 2020-05-28 10:05 | BHS.RME ---
Substance Use & Tx History - Substance Use History Alcohol Substance amount: 2 pints of vodka/6 packs of 12 ozs of beer Frequency of use: Daily Date of Last Use: 05/28/20 Cocaine- Powder Substance amount: 150$ Frequency of use: Less than 3 times per week Substance route: Inhalation (ex: sniffing or snorting) Date of Last Use: 05/27/20 - Last Treatment Date of last treatment: [facility] 09/18/19 to 09/22/19 Where was last treatment: Detox Physical/Psych/Mental Status - Behavior Eye Contact: Normal - Cooperativeness Cooperativeness: Cooperative - Thinking Thought Processes: Logical Thought content: Future oriented - Physical Health Problems Is patient presently having any pain?: No Does patient presently have any injuries (include location): No Does patient currently have a fever: No CIWA Nausea/Vomitin Muscle Tremors: 3 Anxiety: 3 Agitation: 3 Paroxysmal Sweats: 1-Minimal Palms Moist Orientation: 0-Oriented Tacttile Disturbances: 0-None Auditory Disturbances: 0-None Visual Disturbances: 0-None Headache: 2-Mild CIWA-Ar Total Score: 15
--- NOTE | 2020-05-28 10:12 | HP ---
CIWA Score Nausea/Vomitin Muscle Tremors: 3 Anxiety: 3 Agitation: 3 Paroxysmal Sweats: 1-Minimal Palms Moist Orientation: 0-Oriented Tacttile Disturbances: 0-None Auditory Disturbances: 0-None Visual Disturbances: 0-None Headache: 2-Mild CIWA-Ar Total Score: 15 - Admission Criteria OASAS Guidelines: Admission for Medically Managed Detox: Requires at least one of the followin. CIWA greater than 12 2. Seizures within the past 24 hours 3. Delirium tremens within the past 24 hours 4. Hallucinations within the past 24 hours 5. Acute intervention needed for co occurring medical disorder 6. Acute intervention needed for co occurring psychiatric disorder 7. Severe withdrawal that cannot be handled at a lower level of care (continued vomiting, continued diarrhea, abnormal vital signs) requiring intravenous medication and/or fluids 8. 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 Cardiovascular: Yes: HTN Pulmonary: Yes: Asthma Gastrointestinal: Yes: GERD Psych: Yes: Depression Endocrine: Yes: Diabetes Mellitus - Past Surgical History Past Surgical History: Yes: Appendectomy, Laminectomy - Smoking History Smoking history: Current every day smoker Have you smoked in the past 12 months: Yes Aproximately how many cigarettes per day: 10 - Alcohol/Substance Use Hx Alcohol Use: Yes History of Substance Use: reports: Cocaine, Tranquilizers - Social History Usual Living Arrangement: Yes: With Child Do you think of yourself as: Straight/Heterosexual ADL: Support Services Occupation: un employed,on disability History of Recent Travel: No Other Social History: unemployed,no legal issue,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 Admission ROS [facility]HS - HPI Chief Complaint: i need help to stop alcohol and cocaine Allergies/Adverse Reactions: Allergies Allergy/AdvReac Type Severity Reaction Status Date / Time No Known Allergies Allergy Verified 09/18/19 10:30 History of Present Illness: this 54 years old male with alcohol and cocaine dependence,seeking detox, withdrawal symptom syncope type 2 dm,hypertension,depression, history of laminectomy,appendectomy,gynecomastia longest sobriety 6 years plan for out patient bipolar disorder,asthma Exam Limitations: No Limitations - Ebola screening Have you traveled outside of the country in the last 21 days: No Have you had contact with anyone from an Ebola affected area: No Have you been sick,other than usual withdrawal symptoms: No Do you have a fever: No - Review of Systems Constitutional: Loss of Appetite, Malaise, Night Sweats, Changes in sleep, Weakness EENT: reports: Nose Congestion Respiratory: reports: No Symptoms reported (asthma), Other Cardiac: reports: No Symptoms Reported GI: reports: Nausea, Poor Appetite, Abdominal cramping : reports: No Symptoms Reported Musculoskeletal: reports: Back Pain, Muscle Pain Integumentary: reports: Dryness Neuro: reports: Seizure Endocrine: reports: No Symptoms Reported Hematology: reports: No Symptoms Reported Psychiatric: reports: No Sypmtoms Reported, Judgement Intact, Mood/Affect Appropiate, Orientated x3, Depressed Other Systems: Reviewed and Negative Patient History - Patient Medical History Hx Anemia: No Hx Asthma: Yes (on inhalers) Hx Chronic Obstructive Pulmonary Disease (COPD): Yes Hx Cancer: No Hx Cardiac Disorders: No Hx Congestive Heart Failure: No Hx Hypertension: Yes Hx Hypercholesterolemia: No Hx Pacemaker: No HX Cerebrovascular Accident: No Hx Seizures: Yes (drug related,no med) Hx Dementia: No Hx Diabetes: Yes (on metformin) Hx Gastrointestinal Disorders: No Hx Liver Disease: No Hx Genitourinary Disorders: No Hx Sexually Transmitted Disorders: No Hx Renal Disease (ESRD): No Hx Thyroid Disease: No Hx Human Immunodeficiency Virus (HIV): No (12/2019) Hx Hepatitis C: No Hx Depression: Yes Hx Suicide Attempt: No Hx Bipolar Disorder: Yes (Seroquel & Remeron) Hx Schizophrenia: Yes Other Medical History: no suicidal,no homicidal - Patient Surgical History Past Surgical History: Yes Hx Neurologic Surgery: No Hx Cataract Extraction: No Hx Cardiac Surgery: No Hx Lung Surgery: No Hx Breast Surgery: Yes (Gynecomastia) Hx Breast Biopsy: No Hx Abdominal Surgery: No Hx Appendectomy: Yes (1977) Hx Cholecystectomy: Yes (2016) Hx Genitourinary Surgery: No Hx Section: No Hx Orthopedic Surgery: Yes (laminectomy April 2018) Anesthesia Reaction: No - PPD History Previous Implant?: Yes Documented Results: Positive w/proof Results: NEG CXR111/21/18 - Smoking Cessation Smoking history: Current every day smoker Have you smoked in the past 12 months: Yes Aproximately how many cigarettes per day: 10 Cigars Per Day: 0 Hx Chewing Tobacco Use: No Initiated information on smoking cessation: Yes 'Breaking Loose' booklet given: 05/28/20 - Substance & Tx. History Hx Alcohol Use: Yes Hx Substance Use: Yes Substance Use Type: Alcohol, Cocaine Hx Substance Use Treatment: Yes (09/18/19 to 09/22/19) - Substances abused Alcohol Substance route: Oral Frequency: Daily Amount used: 2pints of vodka/6 packs of 12 ozs of beer Age of first use: 11 Date of last use: 05/28/20 Cocaine Substance route: Inhalation Frequency: 1-2 times per week Amount used: 150 $ Age of first use: 26 Date of last use: 05/27/20 Admission Physical Exam [facility] - Physical General Appearance: Yes: Within Normal Limits, Moderate Distress HEENTM: Yes: Normal ENT Inspection, CATHY, Pharynx Normal, Other (blindness of left eye) Respiratory: Yes: Lungs Clear, Normal Breath Sounds, No Respiratory Distress (asthma) Neck: Yes: Within Normal Limits, Supple, Trachea in good position Breast: Yes: Within Normal Limits Cardiology: Yes: Within Normal Limits, S1, S2, Bradycardia Abdominal: Yes: Within Normal Limits, Normal Bowel Sounds, Non Tender, Soft, Surgical Scar Genitourinary: Yes: Within Normal Limits Back: Yes: Muscle Spasm Musculoskeletal: Yes: Back pain, Muscle Pain Extremities: Yes: Tremors Neurological: Yes: cabin agent II-XII NML intact, Alert, Motor Strength 5/5, Normal Mood/Affect Integumentary: Yes: Dry Lymphatic: Yes: Within Normal Limits - Diagnostic (1) Alcohol dependence with uncomplicated withdrawal Current Visit: No Status: Chronic (2) Asthma Current Visit: No Status: Chronic Qualifiers: Asthma severity: mild Asthma persistence: intermittent Asthma complication type: uncomplicated Qualified Code(s): J45.20 - Mild intermittent asthma, uncomplicated (3) Bipolar disorder Current Visit: No Status: Chronic (4) Blindness of left eye Current Visit: No Status: Chronic Qualifiers: Right eye visual impairment category: right - normal vision Qualified Code(s): H54.40 - Blindness, one eye, unspecified eye Comment: related to glaucoma (5) Cocaine dependence, uncomplicated Current Visit: No Status: Chronic (6) Diabetes mellitus treated with oral medication Current Visit: No Status: Chronic Comment: states blood sugar never over 200 (7) HTN (hypertension) Current Visit: No Status: Chronic Qualifiers: Hypertension type: essential hypertension Qualified Code(s): I10 - Essential (primary) hypertension (8) Nicotine dependence Current Visit: No Status: Chronic Qualifiers: Nicotine product type: cigarettes Substance use status: uncomplicated Qualified Code(s): F17.210 - Nicotine dependence, cigarettes, uncomplicated (9) PPD positive, treated Current Visit: No Status: Chronic Comment: states received INH x 9 months (10) History of bipolar disorder Current Visit: No Status: Suspected Cleared for Admission S - Detox or Rehab [facility] Level of Care: Medically Managed Detox Regimen/Protocol: Librium Breathalyzer - Breathalyzer Breathalyzer: 0 Urine Drug Screen - Test Device Lot number: [id number] Expiration date: 05/16/21 - Control Is test valid?: Yes - Results Drug screen NEGATIVE: No Urine drug screen results: [facility]O-Cocaine Inpatient Rehab Admission - Rehab Decision to Admit Inpatient rehab admission?: No
[2020-05-28] MEDS ORDERED: MAGNESIUM CITRATE 300 ML BOTTLE PO PRN (10:43)
[2020-05-28] MEDS ORDERED: ONDANSETRON *ODT* 4 MG TABLET SL ONE ×2 (10:43→21:11)
[2020-05-28] MEDS ORDERED: IBUPROFEN 400 MG TABLET (FP) PO PRN (10:43)
[2020-05-28] MEDS ORDERED: MAG HYDROX/AL HYDROX/SIMETH 30 ML UNIT-DOSE CUP PO PRN (10:43)
[2020-05-28] MEDS ORDERED: MAGNESIUM HYDROX 2400MG/30ML ORAL SUSPENSION 30 ML CUP PO PRN (10:43)
[2020-05-28] MEDS ORDERED: BISMUTH SUBSALICYLATE 524 MG/30 ML UD PO PRN (10:43)
[2020-05-28] MEDS ORDERED: METHOCARBAMOL 500 MG TABLET PO PRN (10:43)
[2020-05-28] MEDS ORDERED: NICOTINE POLACRILEX 2 MG GUM BUC PRN (10:43)
[2020-05-28] MEDS ORDERED: MENTHOL/PHENOL 1 EACH UD MM PRN (10:43)
[2020-05-28] MEDS ORDERED: ACETAMINOPHEN 325 MG TABLET (FP) PO PRN ×2 (10:43)
[2020-05-28 10:59] VITALS: BMI 33.2
[2020-05-28] MEDS ORDERED: ALBUTEROL SO4 HFA INHALER IH PRN (12:06)
[2020-05-28] MEDS: chlordiazePOXIDE HCL 25 MG CAPSULE PO PRN ×2 (12:21→20:41)
[2020-05-28] MEDS: LISINOPRIL 10 MG TABLET (FP) PO SCH (12:21)
[2020-05-28] MEDS: hydrOXYzine PAMOATE 25 MG CAPSULE (FP) PO SCH ×3 (14:03→22:51)
[2020-05-28] MEDS: metFORMIN HCL 500 MG TABLET (FP) PO SCH (17:05)
[2020-05-28] MEDS: chlordiazePOXIDE HCL 25 MG CAPSULE PO SCH ×2 (17:05→22:51)
--- NOTE | 2020-05-28 21:15 | PN ---
[facility] Progress Note Note: Patient complained of nausea. Denies vomiting at this time Vital Signs Temperature 97.7 F 05/28/20 16:47 Pulse Rate 93 H 05/28/20 16:47 Respiratory Rate 18 05/28/20 16:47 Blood Pressure 141/77 05/28/20 16:47 O2 Sat by Pulse Oximetry (%) 99 05/28/20 13:50 Action: Ondansetron ( zofran Odt) 4mg SL ordered
[2020-05-28] MEDS: THIAMINE HCL 100 MG TABLET (FP) PO SCH (22:51)
[2020-05-28] MEDS: MELATONIN 5 MG TABLETS PO SCH (22:51)
[2020-05-29] MEDS: chlordiazePOXIDE HCL 25 MG CAPSULE PO SCH ×4 (05:30→23:44)
[2020-05-29] MEDS: hydrOXYzine PAMOATE 25 MG CAPSULE (FP) PO SCH (05:31)
[2020-05-29] MEDS: metFORMIN HCL 500 MG TABLET (FP) PO SCH ×2 (06:53→17:52)
--- NOTE | 2020-05-29 09:08 | CONSULT ---
[facility] Psychiatric Consult - Data Date of interview: 05/29/20 Admission source: Self-referre Identifying data: Mr Escobar is a 54 years old single Black male, father of 4 children, unemployed receiving SSI, domiciled seeking detox for alcohol and cocaine Substance Abuse History: Reports history of alcohol and cocaine use. Refer to addiction counselor's summary for further information Medical History: Significant for bronchial asthma, hypertension, chronic lumbar pain/herniated disc, blindness left eye, history of alcohol withdrawal seizure disorder, left eye blindness, history of treatment for PPD+, syphilis, gonorrhea and multiple surgeries(gynecomastia, appendectomy in 1977 and cholecystectomy in 2017, laminectomy in 2018). Smokes 10 cigarettes daily Psychiatric History: Patient is known for multiple previous admissions to this facility. He reports that his first psychiatric contact occured at age 7 when he was admitted to [facility] in [place], diagnosed with Bipolar Dis order and started on psychotropic medications. Reports multiple subsequent psychiatric hospitalizations at various institutions notably [facility] and [facility] in [place], [facility]) and most recently in 2017 at [place]. Reports that he received outpatient psychiatric outpatient services at [facility] and he was prescribed Seroquel 100 mg po BID and Remeron 30 mg/hs. He now sees psychiatrist at [facility] in [place] and he is still prescribed Seroquel 100 mg/bid and Remeron 30 mg/hs. Reports two previous suicide attempts (overdose with pills + deliberate jump from a third floor window at age 10). At present, denies experiencing psychotic, manic symptoms, S/H ideations. However, reports feeling depressed, anxious and sleeping poorly Physical/Sexual Abuse/Trauma History: Denies emotional, physical or sexual abuse as well as DV relationship. No service Additional Comment: Reports history of multiple arrests including felony convictions Mental Status Exam - Mental Status Exam Alert and Oriented to: Time, Place, Person Cognitive Function: Fair Mood: Depressed, Anxious Patient Behavior: Cooperative Speech Pattern: Clear Voice Loudness: Normal Thought Process: Intact, Goal Oriented Thought Disorder: Not Present Hallucinations: Denies Suicidal Ideation: Denies Homicidal Ideation: Denies Insight/Judgement: Poor Sleep: Poorly Appetite: Poor Muscle strength/Tone: Normal Gait/Station: Normal Psychiatric Findings - Problem List ([place] 1, 2,3) (1) Bipolar disorder Current Visit: No Status: Chronic (2) Schizoaffective disorder Current Visit: No Status: Ruled-out (3) Substance induced mood disorder Current Visit: Yes Status: Acute (4) Substance-induced sleep disorder Current Visit: Yes Status: Acute (5) Alcohol dependence, uncomplicated Current Visit: Yes Status: Acute (6) Cocaine dependence, uncomplicated Current Visit: Yes Status: Acute (7) Cannabis dependence Current Visit: Yes Status: Acute (8) Nicotine dependence Current Visit: Yes Status: Chronic (9) HTN (hypertension) Current Visit: Yes Status: Chronic (10) Type 2 diabetes mellitus Current Visit: Yes Status: Chronic (11) Blindness of left eye Current Visit: Yes Status: Acute (12) Asthma Current Visit: No Status: Chronic Qualifiers: Asthma severity: mild Asthma persistence: intermittent Asthma complication type: uncomplicated Qualified Code(s): J45.20 - Mild intermittent asthma, uncomplicated (13) Lumbago Current Visit: No Status: Chronic Qualifiers: Chronicity: chronic Back pain laterality: bilateral Sciatica laterality: sciatica laterality unspecified (14) PPD positive, treated Current Visit: No Status: Resolved Comment: states received INH x 9 months (15) History of back surgery Current Visit: No Status: Resolved - Initial Treatment Plan Initial Treatment Plan: 1) Continue Seroquel 100 mg po BID and Remeron 30 mg po HS. 2) Continue inpatient detoxification
[2020-05-29] MEDS ORDERED: hydrOXYzine PAMOATE 50 MG CAPSULE (FP) PO PRN (09:13)
[2020-05-29] MEDS: NICOTINE 21 MG/24 HOURS TOPICAL PATCH TD SCH (10:10)
[2020-05-29] MEDS: PRENATAL VITAMINS W/ FOLIC ACID TABLET (FP) PO SCH (10:10)
[2020-05-29] MEDS: LISINOPRIL 10 MG TABLET (FP) PO SCH (10:10)
[2020-05-29] MEDS: QUEtiapine FUMARATE 100 MG TABLET (FP) PO SCH ×2 (10:57→23:44)
[2020-05-29 12:06] LABS: HEMATOCRIT 41.1 % (35.4-49); HEMOGLOBIN 13.7 GM/dL (11.7-16.9); MCH 30.1 pg (25.7-33.7); MCHC 33.4 g/dl (32.0-35.9); MEAN CELL VOLUME 90.1 fl (80-96); MEAN PLT VOLUME 9.3 fl (7.5-11.1); PLATELET COUNT 164 K/MM3 (134-434); RBC 4.57 M/mm3 (4.00-5.60); RDW 14.7 % (11.9-15.9); WHITE BLOOD COUNT 4.1 K/mm3 (4.0-10.0)
[2020-05-29 13:23] LABS: ALBUMIN 3.5 g/dl (3.4-5.0); BILIRUBIN,TOTAL 0.4 mg/dL (0.2-1); BLOOD UREA NITROGEN 15.2 mg/dL (7-18); CALCIUM 8.8 mg/dL (8.5-10.1); CREATININE 1.2 mg/dL (0.55-1.3); POTASSIUM 4.2 mmol/L (3.5-5.1); TOT PROT 7.1 g/dl (6.4-8.2)
--- NOTE | 2020-05-29 13:27 | PN ---
S CIWA - CIWA Score Nausea/Vomitin Muscle Tremors: 2 Anxiety: 2 Agitation: 1-Slight > Activity Paroxysmal Sweats: No Perspiration Orientation: 0-Oriented Tacttile Disturbances: 1-Very Mild Itch/Numbness Auditory Disturbances: 0-None Visual Disturbances: 0-None Headache: 1-Very Mild CIWA-Ar Total Score: 9 BHS Progress Note (SOAP) Subjective: alert,irritable,anxious,interrupted sleep,tremor,pain in the body Objective: 05/29/20 13:28 Vital Signs Temperature 97.3 F L 05/29/20 05:10 Pulse Rate 90 05/29/20 05:10 Respiratory Rate 16 05/29/20 05:10 Blood Pressure 108/58 L 05/29/20 05:10 O2 Sat by Pulse Oximetry (%) 88 L 05/29/20 05:10 05/29/20 13:28 Laboratory Last Values WBC 4.1 K/mm3 (4.0-10.0) 05/29/20 08:15 RBC 4.57 M/mm3 (4.00-5.60) 05/29/20 08:15 Hgb 13.7 GM/dL (11.7-16.9) 05/29/20 08:15 Hct 41.1 % (35.4-49) 05/29/20 08:15 MCV 90.1 fl (80-96) 05/29/20 08:15 MCH 30.1 pg (25.7-33.7) 05/29/20 08:15 MCHC 33.4 g/dl (32.0-35.9) 05/29/20 08:15 RDW 14.7 % (11.9-15.9) 05/29/20 08:15 Plt Count 164 K/MM3 (134-434) 05/29/20 08:15 MPV 9.3 fl (7.5-11.1) 05/29/20 08:15 Sodium 140 mmol/L (136-145) 05/29/20 08:15 Potassium 4.2 mmol/L (3.5-5.1) 05/29/20 08:15 Chloride 105 mmol/L (98-107) 05/29/20 08:15 Carbon Dioxide 29 mmol/L (21-32) 05/29/20 08:15 Anion Gap 7 MMOL/L (8-16) L 05/29/20 08:15 BUN 15.2 mg/dL (7-18) 05/29/20 08:15 Creatinine 1.2 mg/dL (0.55-1.3) 05/29/20 08:15 Est GFR (CKD-EPI)AfAm 77.88 05/29/20 08:15 Est GFR (CKD-EPI)NonAf 67.19 05/29/20 08:15 POC Glucometer 110 UNITS (80-120) 05/29/20 05:27 Random Glucose 99 mg/dL (74-106) 05/29/20 08:15 Calcium 8.8 mg/dL (8.5-10.1) 05/29/20 08:15 Total Bilirubin 0.4 mg/dL (0.2-1) 05/29/20 08:15 AST 15 U/L (15-37) 05/29/20 08:15 ALT 22 U/L (13-61) 05/29/20 08:15 Alkaline Phosphatase 80 U/L (45-117) 05/29/20 08:15 Total Protein 7.1 g/dl (6.4-8.2) 05/29/20 08:15 Albumin 3.5 g/dl (3.4-5.0) 05/29/20 08:15 Assessment: 05/29/20 13:29 withdrawal symptom Plan: continue detox librium regimen,bgm monitoring,Dr. Espinal evaluation greatly appreciated
[2020-05-29] MEDS ORDERED: MIRTAZAPINE 30 MG TABLET PO SCH (22:00)
[2020-05-29] MEDS: THIAMINE HCL 100 MG TABLET (FP) PO SCH (23:44)
[2020-05-29] MEDS: MELATONIN 5 MG TABLETS PO SCH (23:45)
[2020-05-30] MEDS: chlordiazePOXIDE HCL 25 MG CAPSULE PO SCH ×2 (06:23→10:15)
[2020-05-30] MEDS: metFORMIN HCL 500 MG TABLET (FP) PO SCH (06:23)
[2020-05-30 09:53] VITALS: BP 106/70; PULSE 98; TEMP 97.9
[2020-05-30] MEDS: QUEtiapine FUMARATE 100 MG TABLET (FP) PO SCH (10:15)
[2020-05-30] MEDS: PRENATAL VITAMINS W/ FOLIC ACID TABLET (FP) PO SCH (10:15)
[2020-05-30] MEDS: LISINOPRIL 10 MG TABLET (FP) PO SCH (10:15)
[2020-05-30] MEDS: NICOTINE 21 MG/24 HOURS TOPICAL PATCH TD SCH (10:15)
--- NOTE | 2020-05-30 11:49 | PN ---
S CIWA - CIWA Score Nausea/Vomitin-Mild Nausea/No Vomiting Muscle Tremors: 2 Anxiety: 2 Agitation: 1-Slight > Activity Paroxysmal Sweats: No Perspiration Orientation: 0-Oriented Tacttile Disturbances: 1-Very Mild Itch/Numbness Auditory Disturbances: 0-None Visual Disturbances: 0-None Headache: 1-Very Mild CIWA-Ar Total Score: 8 BHS Progress Note (SOAP) Subjective: alert,irritable,anxious,interrupted sleep,aching pain,nausea Objective: 05/30/20 11:48 Vital Signs Temperature 97.9 F 05/30/20 08:47 Pulse Rate 98 H 05/30/20 08:47 Respiratory Rate 20 05/30/20 08:47 Blood Pressure 106/70 05/30/20 08:47 O2 Sat by Pulse Oximetry (%) 97 05/30/20 08:47 Laboratory Last Values WBC 4.1 K/mm3 (4.0-10.0) 05/29/20 08:15 RBC 4.57 M/mm3 (4.00-5.60) 05/29/20 08:15 Hgb 13.7 GM/dL (11.7-16.9) 05/29/20 08:15 Hct 41.1 % (35.4-49) 05/29/20 08:15 MCV 90.1 fl (80-96) 05/29/20 08:15 MCH 30.1 pg (25.7-33.7) 05/29/20 08:15 MCHC 33.4 g/dl (32.0-35.9) 05/29/20 08:15 RDW 14.7 % (11.9-15.9) 05/29/20 08:15 Plt Count 164 K/MM3 (134-434) 05/29/20 08:15 MPV 9.3 fl (7.5-11.1) 05/29/20 08:15 Sodium 140 mmol/L (136-145) 05/29/20 08:15 Potassium 4.2 mmol/L (3.5-5.1) 05/29/20 08:15 Chloride 105 mmol/L (98-107) 05/29/20 08:15 Carbon Dioxide 29 mmol/L (21-32) 05/29/20 08:15 Anion Gap 7 MMOL/L (8-16) L 05/29/20 08:15 BUN 15.2 mg/dL (7-18) 05/29/20 08:15 Creatinine 1.2 mg/dL (0.55-1.3) 05/29/20 08:15 Est GFR (CKD-EPI)AfAm 77.88 05/29/20 08:15 Est GFR (CKD-EPI)NonAf 67.19 05/29/20 08:15 POC Glucometer 145 UNITS (80-120) 05/30/20 06:22 Random Glucose 99 mg/dL (74-106) 05/29/20 08:15 Calcium 8.8 mg/dL (8.5-10.1) 05/29/20 08:15 Total Bilirubin 0.4 mg/dL (0.2-1) 05/29/20 08:15 AST 15 U/L (15-37) 05/29/20 08:15 ALT 22 U/L (13-61) 05/29/20 08:15 Alkaline Phosphatase 80 U/L (45-117) 05/29/20 08:15 Total Protein 7.1 g/dl (6.4-8.2) 05/29/20 08:15 Albumin 3.5 g/dl (3.4-5.0) 05/29/20 08:15 Syphilis Serology Reactive (NONREACTIVE) A* 05/29/20 08:15 RPR Titer Reactive 1:1 (NONREACTIVE) H D 05/29/20 08:15 HIV Ag/Ab Combo Qual Negative (NEGATIVE) 05/29/20 08:15 patient was adequately treated for syphilis with 3 injection at age of 38 years 05/30/20 11:50 Assessment: 05/30/20 11:50 withdrawal symptom Plan: continue detox librium regimen,bgm monitoring
--- NOTE | 2020-05-30 12:53 | PN ---
[facility] Progress Note Note: patient dose not want to complete program,high risks of relapsing explained,understood, the risks of leaving the facility including permanent disability,seizure,and patient understood. signed release ama
--- NOTE | 2020-05-30 12:54 | DS ---
[facility] Detox Discharge Summary Admission Date: 05/28/20 Discharge Date: 05/30/20 - History Present History: Alcohol Dependence, Cannabis Dependence, Cocaine Dependence Additional Comments: alert,oriented x 3 lung clear on auscultation bilaterally abdomen soft,no distension,no pain no tenderness patient does not want to complete treatment,all attempts to convine patient to stay with no available, high risks of relapsing,explained understood,the risks of seizure,permanent disability including explained,patient understood,signed release ama,he will go home, follow up with outpatient program, follow up with his medical provider for medical problem,has medications at home left the unit in good and stable condition total time spending on discharge 35 minutes Pertinent Past History: hypertension type 2 dm asthma bipolar disorder blindness of left eye - Physical Exam Results Vital Signs: Vital Signs Temperature 97.9 F 05/30/20 08:47 Pulse Rate 98 H 05/30/20 08:47 Respiratory Rate 20 05/30/20 08:47 Blood Pressure 106/70 05/30/20 08:47 O2 Sat by Pulse Oximetry (%) 97 05/30/20 08:47 Pertinent Admission Physical Exam Findings: withdrawal signs and symptom Vital Signs Temperature 97.9 F 05/30/20 08:47 Pulse Rate 98 H 05/30/20 08:47 Respiratory Rate 20 05/30/20 08:47 Blood Pressure 106/70 05/30/20 08:47 O2 Sat by Pulse Oximetry (%) 97 05/30/20 08:47 Laboratory Last Values WBC 4.1 K/mm3 (4.0-10.0) 05/29/20 08:15 RBC 4.57 M/mm3 (4.00-5.60) 05/29/20 08:15 Hgb 13.7 GM/dL (11.7-16.9) 05/29/20 08:15 Hct 41.1 % (35.4-49) 05/29/20 08:15 MCV 90.1 fl (80-96) 05/29/20 08:15 MCH 30.1 pg (25.7-33.7) 05/29/20 08:15 MCHC 33.4 g/dl (32.0-35.9) 05/29/20 08:15 RDW 14.7 % (11.9-15.9) 05/29/20 08:15 Plt Count 164 K/MM3 (134-434) 05/29/20 08:15 MPV 9.3 fl (7.5-11.1) 05/29/20 08:15 Sodium 140 mmol/L (136-145) 05/29/20 08:15 Potassium 4.2 mmol/L (3.5-5.1) 05/29/20 08:15 Chloride 105 mmol/L (98-107) 05/29/20 08:15 Carbon Dioxide 29 mmol/L (21-32) 05/29/20 08:15 Anion Gap 7 MMOL/L (8-16) L 05/29/20 08:15 BUN 15.2 mg/dL (7-18) 05/29/20 08:15 Creatinine 1.2 mg/dL (0.55-1.3) 05/29/20 08:15 Est GFR (CKD-EPI)AfAm 77.88 05/29/20 08:15 Est GFR (CKD-EPI)NonAf 67.19 05/29/20 08:15 POC Glucometer 145 UNITS (80-120) 05/30/20 06:22 Random Glucose 99 mg/dL (74-106) 05/29/20 08:15 Calcium 8.8 mg/dL (8.5-10.1) 05/29/20 08:15 Total Bilirubin 0.4 mg/dL (0.2-1) 05/29/20 08:15 AST 15 U/L (15-37) 05/29/20 08:15 ALT 22 U/L (13-61) 05/29/20 08:15 Alkaline Phosphatase 80 U/L (45-117) 05/29/20 08:15 Total Protein 7.1 g/dl (6.4-8.2) 05/29/20 08:15 Albumin 3.5 g/dl (3.4-5.0) 05/29/20 08:15 Syphilis Serology Reactive (NONREACTIVE) A* 05/29/20 08:15 RPR Titer Reactive 1:1 (NONREACTIVE) H D 05/29/20 08:15 HIV Ag/Ab Combo Qual Negative (NEGATIVE) 05/29/20 08:15 Vital Signs Temperature 97.9 F 05/30/20 08:47 Pulse Rate 98 H 05/30/20 08:47 Respiratory Rate 20 05/30/20 08:47 Blood Pressure 106/70 05/30/20 08:47 O2 Sat by Pulse Oximetry (%) 97 05/30/20 08:47 - Medication Discharge Medications: Ambulatory Orders Mirtazapine [Remeron -] 30 mg PO HS #30 tablet 08/06/18 Quetiapine Fumarate [Seroquel -] 100 mg PO BID #60 tablet 08/06/18 Albuterol Sulfate Inhaler - [Ventolin HFA Inhaler -] 2 inh PO Q4H PRN 09/18/19 Fluticasone Propionate [Flovent Hfa] 110 mcg IH BID 09/18/19 Lisinopril [Prinivil] 10 mg PO DAILY 09/18/19 metFORMIN HCL [Metformin HCl] 500 mg PO BID 09/18/19 - Diagnosis (1) Alcohol dependence with uncomplicated withdrawal Current Visit: No Status: Deleted (2) Asthma Current Visit: No Status: Chronic Qualifiers: Asthma severity: mild Asthma persistence: intermittent Asthma complication type: uncomplicated Qualified Code(s): J45.20 - Mild intermittent asthma, uncomplicated (3) Bipolar disorder Current Visit: No Status: Chronic (4) Blindness of left eye Current Visit: No Status: Deleted Qualifiers: Right eye visual impairment category: right - normal vision Qualified Code(s): H54.40 - Blindness, one eye, unspecified eye (5) Cocaine dependence, uncomplicated Current Visit: No Status: Deleted (6) Diabetes mellitus treated with oral medication Current Visit: No Status: Deleted (7) HTN (hypertension) Current Visit: No Status: Deleted Qualifiers: Hypertension type: essential hypertension Qualified Code(s): I10 - Essential (primary) hypertension (8) Nicotine dependence Current Visit: No Status: Deleted Qualifiers: Nicotine product type: cigarettes Substance use status: uncomplicated Qualified Code(s): F17.210 - Nicotine dependence, cigarettes, uncomplicated (9) PPD positive, treated Current Visit: No Status: Resolved (10) History of bipolar disorder Current Visit: No Status: Suspected - AMA Did Patient Leave Against Medical Advice: Yes
[2020-05-31] MEDS ORDERED: chlordiazePOXIDE HCL 10 MG CAPSULE PO PRN
[2020-05-31] MEDS ORDERED: chlordiazePOXIDE HCL 10 MG CAPSULE PO SCH (05:00)
[2020-06-01] MEDS ORDERED: chlordiazePOXIDE HCL 10 MG CAPSULE PO SCH (05:00)
[2020-06-02] MEDS ORDERED: chlordiazePOXIDE HCL 10 MG CAPSULE PO ONE (05:00)
== END 2020-05-30 12:45 | disposition home or self-care (01) | DRG 774 ==
LOC: YASAS 09:09 → Y6N 11:16
PROVIDERS: ADMIT Allergy & Immunology; ATTEND Allergy & Immunology
PROC: HZ2ZZZZ Detoxification Services for Substance Abuse Treatment (ICD-10-PCS; principal; 2020-05-28)
DX: F10.230 Alcohol dependence with withdrawal, uncomplicated (principal); F14.20 Cocaine dependence, uncomplicated; F12.20 Cannabis dependence, uncomplicated; F17.210 Nicotine dependence, cigarettes, uncomplicated; F19.282 Other psychoactive substance dependence with psychoactive substance-induced sleep disorder; F19.24 Other psychoactive substance dependence with psychoactive substance-induced mood disorder; F31.9 Bipolar disorder, unspecified; G40.509 Epileptic seizures related to external causes, not intractable, without status epilepticus; I10 Essential (primary) hypertension; J45.20 Mild intermittent asthma, uncomplicated; K21.9 Gastro-esophageal reflux disease without esophagitis; E11.9 Type 2 diabetes mellitus without complications; Z79.84 Long term (current) use of oral hypoglycemic drugs; H54.62 Unqualified visual loss, left eye, normal vision right eye; M54.5 Low back pain; R76.11 Nonspecific reaction to tuberculin skin test without active tuberculosis; Z86.19 Personal history of other infectious and parasitic diseases; Z56.0 Unemployment, unspecified; Z91.5 Personal history of self-harm; Z90.49 Acquired absence of other specified parts of digestive tract; Z98.890 Other specified postprocedural states
CPT/HCPCS: 36415; 80053; 82962; 85027; 86593; 86780; 87389; Q0162; U0003

== ENCOUNTER 2022-10-27 19:21 | Inpatient (IN) | payer OTHER ==
[2022-10-27 19:46] VITALS: BMI 29.3
[2022-10-27] MEDS ORDERED: chlordiazePOXIDE HCL 25 MG CAPSULE PO PRN (22:48)
[2022-10-27] MEDS ORDERED: ONDANSETRON *ODT* 4 MG TABLET SL PRN (22:48)
[2022-10-27] MEDS ORDERED: BENZOCAINE/MENTHOL (CHLORASEPTIC ) LOZENGE MM PRN (22:48)
[2022-10-27] MEDS ORDERED: MAG HYDROX/AL HYDROX/SIMETH 30 ML UNIT-DOSE CUP PO PRN (22:48)
[2022-10-27] MEDS ORDERED: DICYCLOMINE HCL 10 MG CAPSULE PO PRN (22:48)
[2022-10-27] MEDS ORDERED: BISMUTH SUBSALICYLATE 524 MG/30 ML PO PRN (22:48)
[2022-10-27] MEDS ORDERED: NICOTINE 10 MG CARTRIDGE (INHALER) IH PRN (22:48)
[2022-10-27] MEDS ORDERED: LOPERAMIDE HCL 2 MG CAPSULE PO PRN (22:48)
[2022-10-27] MEDS ORDERED: POLYETHYLENE GLYCOL (HEALTHYLAX) 3350 17 GM PACKET PO PRN (22:48)
[2022-10-27] MEDS ORDERED: IBUPROFEN 400 MG TABLET (FP) PO PRN (22:48)
[2022-10-27] MEDS ORDERED: NALOXONE HCL (KLOXXADO) 8 MG SPRAY NS PRN (22:48)
[2022-10-27] MEDS ORDERED: MAGNESIUM HYDROX 2400MG/30ML ORAL SUSPENSION 30 ML CUP PO PRN (22:48)
[2022-10-27] MEDS ORDERED: ACETAMINOPHEN 325 MG TABLET (FP) PO PRN ×2 (22:48)
[2022-10-27] MEDS ORDERED: ALBUTEROL SO4 HFA INHALER IH PRN (22:53)
[2022-10-27] MEDS: METHOCARBAMOL 500 MG TABLET PO PRN (23:10)
[2022-10-27] MEDS: chlordiazePOXIDE HCL 25 MG CAPSULE PO SCH (23:10)
[2022-10-28] MEDS: chlordiazePOXIDE HCL 25 MG CAPSULE PO SCH ×4 (06:41→22:48)
[2022-10-28] MEDS: INSULIN SLIDING SCALE (NOVOLOG) 1 VIAL SQ SCH ×2 (06:58→18:04)
[2022-10-28] MEDS: PRENATAL VITAMINS W/ FOLIC ACID TABLET (FP) PO SCH (10:27)
[2022-10-28] MEDS: NICOTINE 14 MG/24 HOURS TOPICAL PATCH TD SCH (10:27)
[2022-10-28] MEDS: METHOCARBAMOL 500 MG TABLET PO PRN ×2 (10:29→18:03)
[2022-10-28] MEDS: IBUPROFEN 600 MG TABLET (FP) PO PRN ×2 (10:29→18:03)
[2022-10-28 13:09] LABS: BLOOD UREA NITROGEN 10.3 mg/dL (7-18); CALCIUM 8.5 mg/dL (8.5-10.1); HEMATOCRIT 32.7 % (35.4-49); HEMOGLOBIN 11.2 GM/dL (11.7-16.9); MCH 28.7 pg (25.7-33.7); MCHC 34.2 g/dl (32.0-35.9); MEAN CELL VOLUME 83.9 fl (80-96); MEAN PLT VOLUME 7.9 fl (7.5-11.1); PLATELET COUNT 276 10^3/uL (134-434); RDW 15.6 % (11.9-15.9); WHITE BLOOD COUNT 4.5 K/mm3 (4.0-10.0)
[2022-10-28 13:13] LABS: CREATININE 1.2 mg/dL (0.55-1.3)
[2022-10-28 13:15] LABS: BILIRUBIN,TOTAL 0.3 mg/dL (0.2-1); TOT PROT 6.8 g/dl (6.4-8.2)
[2022-10-28] MEDS: metFORMIN HCL 500 MG TABLET (FP) PO SCH (18:00)
[2022-10-28] MEDS: QUEtiapine FUMARATE 100 MG TABLET (FP) PO SCH (22:47)
[2022-10-28] MEDS: THIAMINE HCL 100 MG TABLET (FP) PO SCH (22:47)
[2022-10-28] MEDS: MELATONIN 5 MG TABLETS PO SCH (22:47)
[2022-10-28] MEDS: MIRTAZAPINE 15 MG TABLET (FP) PO SCH (22:48)
[2022-10-28] MEDS: MOMETASONE FUROATE 220 MCG/IH INHALER IH SCH (23:00)
[2022-10-29] MEDS: chlordiazePOXIDE HCL 25 MG CAPSULE PO SCH ×4 (06:14→22:27)
[2022-10-29] MEDS: INSULIN SLIDING SCALE (NOVOLOG) 1 VIAL SQ SCH ×2 (07:55→18:01)
[2022-10-29] MEDS: metFORMIN HCL 500 MG TABLET (FP) PO SCH ×2 (08:16→17:59)
[2022-10-29] MEDS: PRENATAL VITAMINS W/ FOLIC ACID TABLET (FP) PO SCH (10:24)
[2022-10-29] MEDS: LISINOPRIL 10 MG TABLET PO SCH (10:24)
[2022-10-29] MEDS: QUEtiapine FUMARATE 100 MG TABLET (FP) PO SCH ×2 (10:24→22:26)
[2022-10-29] MEDS: NICOTINE 14 MG/24 HOURS TOPICAL PATCH TD SCH (11:06)
[2022-10-29] MEDS: MOMETASONE FUROATE 220 MCG/IH INHALER IH SCH (22:25)
[2022-10-29] MEDS: THIAMINE HCL 100 MG TABLET (FP) PO SCH (22:26)
[2022-10-29] MEDS: MELATONIN 5 MG TABLETS PO SCH (22:26)
[2022-10-29] MEDS: MIRTAZAPINE 15 MG TABLET (FP) PO SCH (22:27)
[2022-10-29] MEDS: METHOCARBAMOL 500 MG TABLET PO PRN (22:27)
[2022-10-30] MEDS ORDERED: chlordiazePOXIDE HCL 10 MG CAPSULE PO PRN
[2022-10-30] MEDS: chlordiazePOXIDE HCL 10 MG CAPSULE PO SCH ×4 (05:42→22:19)
[2022-10-30] MEDS: metFORMIN HCL 500 MG TABLET (FP) PO SCH ×2 (06:39→17:39)
[2022-10-30] MEDS: INSULIN SLIDING SCALE (NOVOLOG) 1 VIAL SQ SCH ×2 (06:40→17:48)
[2022-10-30] MEDS: QUEtiapine FUMARATE 100 MG TABLET (FP) PO SCH ×2 (10:47→22:16)
[2022-10-30] MEDS: PRENATAL VITAMINS W/ FOLIC ACID TABLET (FP) PO SCH (10:47)
[2022-10-30] MEDS: LISINOPRIL 10 MG TABLET PO SCH (10:47)
[2022-10-30] MEDS: NICOTINE 14 MG/24 HOURS TOPICAL PATCH TD SCH (11:03)
[2022-10-30] MEDS: METHOCARBAMOL 500 MG TABLET PO PRN (19:23)
[2022-10-30] MEDS: IBUPROFEN 600 MG TABLET (FP) PO PRN (19:23)
[2022-10-30] MEDS: MELATONIN 5 MG TABLETS PO SCH (22:16)
[2022-10-30] MEDS: THIAMINE HCL 100 MG TABLET (FP) PO SCH (22:16)
[2022-10-30] MEDS: MIRTAZAPINE 15 MG TABLET (FP) PO SCH (22:16)
[2022-10-30] MEDS: MOMETASONE FUROATE 220 MCG/IH INHALER IH SCH (22:19)
[2022-10-31] MEDS: metFORMIN HCL 500 MG TABLET (FP) PO SCH ×2 (06:27→17:07)
[2022-10-31] MEDS: chlordiazePOXIDE HCL 10 MG CAPSULE PO SCH ×2 (06:27→17:08)
[2022-10-31] MEDS: METHOCARBAMOL 500 MG TABLET PO PRN (06:29)
[2022-10-31] MEDS: INSULIN SLIDING SCALE (NOVOLOG) 1 VIAL SQ SCH ×2 (06:47→17:11)
[2022-10-31] MEDS: QUEtiapine FUMARATE 100 MG TABLET (FP) PO SCH ×2 (10:04→22:30)
[2022-10-31] MEDS: LISINOPRIL 10 MG TABLET PO SCH (10:04)
[2022-10-31] MEDS: PRENATAL VITAMINS W/ FOLIC ACID TABLET (FP) PO SCH (10:04)
[2022-10-31] MEDS: NICOTINE 14 MG/24 HOURS TOPICAL PATCH TD SCH (10:10)
[2022-10-31] MEDS: IBUPROFEN 600 MG TABLET (FP) PO PRN (13:53)
[2022-10-31] MEDS: MOMETASONE FUROATE 220 MCG/IH INHALER IH SCH (22:30)
[2022-10-31] MEDS: MELATONIN 5 MG TABLETS PO SCH (22:30)
[2022-10-31] MEDS: THIAMINE HCL 100 MG TABLET (FP) PO SCH (22:30)
[2022-10-31] MEDS: MIRTAZAPINE 15 MG TABLET (FP) PO SCH (22:30)
[2022-11-01] MEDS ORDERED: chlordiazePOXIDE HCL 10 MG CAPSULE PO ONE (05:00)
[2022-11-01] MEDS: METHOCARBAMOL 500 MG TABLET PO PRN (06:14)
[2022-11-01 06:25] VITALS: BP 94/59; PULSE 63; RESP 17; TEMP 97.8
[2022-11-01] MEDS: INSULIN SLIDING SCALE (NOVOLOG) 1 VIAL SQ SCH (06:31)
[2022-11-01] MEDS: metFORMIN HCL 500 MG TABLET (FP) PO SCH (07:36)
[2022-11-01] MEDS: LISINOPRIL 10 MG TABLET PO SCH (09:00)
[2022-11-01] MEDS: NICOTINE 14 MG/24 HOURS TOPICAL PATCH TD SCH (10:40)
[2022-11-01] MEDS: PRENATAL VITAMINS W/ FOLIC ACID TABLET (FP) PO SCH (10:41)
[2022-11-01] MEDS: QUEtiapine FUMARATE 100 MG TABLET (FP) PO SCH (10:41)
== END 2022-11-01 13:10 | disposition other institution (70) | DRG 774 ==
LOC: YASAS 19:21 → Y3N 22:31
PROVIDERS: ADMIT Allergy & Immunology; ATTEND Surgery
PROC: HZ2ZZZZ Detoxification Services for Substance Abuse Treatment (ICD-10-PCS; principal; 2022-10-27)
DX: F10.230 Alcohol dependence with withdrawal, uncomplicated (principal); F14.20 Cocaine dependence, uncomplicated; F12.20 Cannabis dependence, uncomplicated; F31.9 Bipolar disorder, unspecified; F25.9 Schizoaffective disorder, unspecified; F19.24 Other psychoactive substance dependence with psychoactive substance-induced mood disorder; F32.A Depression, unspecified; H54.62 Unqualified visual loss, left eye, normal vision right eye; I10 Essential (primary) hypertension; J45.20 Mild intermittent asthma, uncomplicated; K21.9 Gastro-esophageal reflux disease without esophagitis; E11.9 Type 2 diabetes mellitus without complications; Z79.84 Long term (current) use of oral hypoglycemic drugs; Z86.11 Personal history of tuberculosis; Z28.310 Unvaccinated for COVID-19; Z28.9 Immunization not carried out for unspecified reason
CPT/HCPCS: 36415; 80053; 82962; 85027; 86593; 86780; 93005; 93010; C9803-CS; U0003; U0005

== ENCOUNTER 2022-11-01 12:50 | Inpatient (IN) | payer OTHER ==
[2022-11-01] MEDS ORDERED: MAGNESIUM HYDROX 2400MG/30ML ORAL SUSPENSION 30 ML CUP PO PRN (14:31)
[2022-11-01] MEDS ORDERED: guaiFENesin 200 MG/10 ML 10 ML UNIT-DOSE CUPS PO PRN (14:31)
[2022-11-01] MEDS ORDERED: P-EPHED 60MG/TRIPROLIDI 2.5MG TABLET PO PRN (14:31)
[2022-11-01] MEDS ORDERED: ACETAMINOPHEN 325 MG TABLET (FP) PO PRN (14:31)
[2022-11-01] MEDS ORDERED: POLYETHYLENE GLYCOL (HEALTHYLAX) 3350 17 GM PACKET PO PRN (14:31)
[2022-11-01] MEDS ORDERED: hydrOXYzine PAMOATE 25 MG CAPSULE (FP) PO PRN (14:31)
[2022-11-01] MEDS ORDERED: BENZOCAINE/MENTHOL (CHLORASEPTIC ) LOZENGE MM PRN (14:31)
[2022-11-01] MEDS ORDERED: LOPERAMIDE HCL 2 MG CAPSULE PO PRN (14:31)
[2022-11-01] MEDS ORDERED: ALBUTEROL SO4 HFA INHALER IH PRN (14:32)
[2022-11-01] MEDS ORDERED: INSULIN SLIDING SCALE (NOVOLOG) 1 VIAL SQ SCH (16:30)
[2022-11-01] MEDS: IBUPROFEN 400 MG TABLET (FP) PO PRN (17:51)
[2022-11-01] MEDS: INSULIN SLIDING SCALE (NOVOLOG) 1 VIAL SQ SCH (17:55)
[2022-11-01] MEDS: metFORMIN HCL 500 MG TABLET (FP) PO SCH (17:56)
[2022-11-01] MEDS: THIAMINE HCL 100 MG TABLET (FP) PO SCH (21:19)
[2022-11-01] MEDS: MELATONIN 5 MG TABLETS PO SCH (21:20)
[2022-11-01] MEDS: MOMETASONE FUROATE 220 MCG/IH INHALER IH SCH (21:20)
[2022-11-01] MEDS ORDERED: PATIENT'S OWN MEDICATION (NON-FORMULARY) (Fluticasone Propionate [Flovent Hfa] 110 MCG/INH IH SCH (22:00)
[2022-11-02] MEDS: MAG HYDROX/AL HYDROX/SIMETH 30 ML UNIT-DOSE CUP PO PRN (04:59)
[2022-11-02] MEDS: metFORMIN HCL 500 MG TABLET (FP) PO SCH ×2 (06:45→16:48)
[2022-11-02] MEDS: INSULIN SLIDING SCALE (NOVOLOG) 1 VIAL SQ SCH ×2 (06:51→16:49)
[2022-11-02] MEDS: NICOTINE 7 MG/24 HOURS TOPICAL PATCH TD SCH (09:45)
[2022-11-02] MEDS: PRENATAL VITAMINS W/ FOLIC ACID TABLET (FP) PO SCH (09:45)
[2022-11-02] MEDS: METHOCARBAMOL 500 MG TABLET PO PRN ×2 (09:47→21:09)
[2022-11-02] MEDS: LISINOPRIL 10 MG TABLET PO SCH (09:47)
[2022-11-02] MEDS: NICOTINE 10 MG CARTRIDGE (INHALER) IH PRN (09:47)
[2022-11-02] MEDS: IBUPROFEN 400 MG TABLET (FP) PO PRN ×2 (09:48→21:12)
[2022-11-02] MEDS ORDERED: QUEtiapine FUMARATE 100 MG TABLET (FP) PO SCH ×2 (10:00→22:00)
[2022-11-02] MEDS: LIDOCAINE 5% TOPICAL PATCH TP SCH (10:48)
[2022-11-02] MEDS ORDERED: INSULIN (NOVOLOG) ASPART 100 UNITS/ML 10ML VIAL ONE (16:44)
[2022-11-02] MEDS: THIAMINE HCL 100 MG TABLET (FP) PO SCH (21:06)
[2022-11-02] MEDS: MELATONIN 5 MG TABLETS PO SCH (21:06)
[2022-11-02] MEDS: MOMETASONE FUROATE 220 MCG/IH INHALER IH SCH (21:07)
[2022-11-02] MEDS: MIRTAZAPINE 30 MG TABLET PO SCH (21:11)
[2022-11-02] MEDS: QUEtiapine FUMARATE 100 MG TABLET (FP) PO SCH (21:11)
[2022-11-02] MEDS: LIDOCAINE PATCH REMOVAL MC SCH (21:38)
[2022-11-02] MEDS ORDERED: MIRTAZAPINE 15 MG TABLET (FP) PO SCH (22:00)
[2022-11-03] MEDS: INSULIN SLIDING SCALE (NOVOLOG) 1 VIAL SQ SCH ×2 (06:48→16:53)
[2022-11-03] MEDS: MAG HYDROX/AL HYDROX/SIMETH 30 ML UNIT-DOSE CUP PO PRN (07:39)
[2022-11-03] MEDS: metFORMIN HCL 500 MG TABLET (FP) PO SCH ×2 (07:58→16:52)
[2022-11-03] MEDS ORDERED: TRIMETHOBENZAMIDE HCL 200MG/2ML INJ IM ONE (09:38)
[2022-11-03] MEDS: NICOTINE 7 MG/24 HOURS TOPICAL PATCH TD SCH (11:21)
[2022-11-03] MEDS: PRENATAL VITAMINS W/ FOLIC ACID TABLET (FP) PO SCH (11:21)
[2022-11-03] MEDS: QUEtiapine FUMARATE 25 MG TABLET PO SCH (11:21)
[2022-11-03] MEDS: LISINOPRIL 10 MG TABLET PO SCH (11:22)
[2022-11-03] MEDS: METHOCARBAMOL 500 MG TABLET PO PRN (11:25)
[2022-11-03] MEDS: IBUPROFEN 400 MG TABLET (FP) PO PRN (11:25)
[2022-11-03] MEDS: LIDOCAINE 5% TOPICAL PATCH TP SCH (11:26)
[2022-11-03] MEDS ORDERED: INSULIN (NOVOLOG) ASPART 100 UNITS/ML 10ML VIAL ONE (16:32)
[2022-11-03] MEDS: MIRTAZAPINE 30 MG TABLET PO SCH (23:32)
[2022-11-03] MEDS: QUEtiapine FUMARATE 100 MG TABLET (FP) PO SCH (23:32)
[2022-11-03] MEDS: MELATONIN 5 MG TABLETS PO SCH (23:33)
[2022-11-03] MEDS: THIAMINE HCL 100 MG TABLET (FP) PO SCH (23:34)
[2022-11-03] MEDS: LIDOCAINE PATCH REMOVAL MC SCH (23:34)
[2022-11-03] MEDS: MOMETASONE FUROATE 220 MCG/IH INHALER IH SCH (23:34)
[2022-11-04] MEDS: INSULIN SLIDING SCALE (NOVOLOG) 1 VIAL SQ SCH ×2 (06:20→17:00)
[2022-11-04] MEDS: metFORMIN HCL 500 MG TABLET (FP) PO SCH ×2 (08:08→16:59)
[2022-11-04] MEDS: PRENATAL VITAMINS W/ FOLIC ACID TABLET (FP) PO SCH (09:46)
[2022-11-04] MEDS: QUEtiapine FUMARATE 25 MG TABLET PO SCH (09:47)
[2022-11-04] MEDS: NICOTINE 7 MG/24 HOURS TOPICAL PATCH TD SCH (09:48)
[2022-11-04] MEDS: LIDOCAINE 5% TOPICAL PATCH TP SCH (09:49)
[2022-11-04] MEDS: LISINOPRIL 10 MG TABLET PO SCH (09:49)
[2022-11-04] MEDS: METHOCARBAMOL 500 MG TABLET PO PRN ×2 (11:39→19:44)
[2022-11-04] MEDS: IBUPROFEN 400 MG TABLET (FP) PO PRN ×2 (11:39→19:48)
[2022-11-04] MEDS ORDERED: INSULIN (NOVOLOG) ASPART 100 UNITS/ML 10ML VIAL ONE (16:51)
[2022-11-04] MEDS: MIRTAZAPINE 30 MG TABLET PO SCH (23:32)
[2022-11-04] MEDS: MELATONIN 5 MG TABLETS PO SCH (23:32)
[2022-11-04] MEDS: LIDOCAINE PATCH REMOVAL MC SCH (23:32)
[2022-11-04] MEDS: MOMETASONE FUROATE 220 MCG/IH INHALER IH SCH (23:32)
[2022-11-04] MEDS: QUEtiapine FUMARATE 100 MG TABLET (FP) PO SCH (23:33)
[2022-11-04] MEDS: THIAMINE HCL 100 MG TABLET (FP) PO SCH (23:33)
[2022-11-05] MEDS: INSULIN SLIDING SCALE (NOVOLOG) 1 VIAL SQ SCH ×2 (08:34→17:08)
[2022-11-05] MEDS: metFORMIN HCL 500 MG TABLET (FP) PO SCH ×2 (08:34→17:07)
[2022-11-05] MEDS: PRENATAL VITAMINS W/ FOLIC ACID TABLET (FP) PO SCH (10:22)
[2022-11-05] MEDS: NICOTINE 7 MG/24 HOURS TOPICAL PATCH TD SCH (10:22)
[2022-11-05] MEDS: LIDOCAINE 5% TOPICAL PATCH TP SCH (10:22)
[2022-11-05] MEDS: LISINOPRIL 10 MG TABLET PO SCH (10:23)
[2022-11-05] MEDS: QUEtiapine FUMARATE 25 MG TABLET PO SCH (10:24)
[2022-11-05] MEDS: IBUPROFEN 400 MG TABLET (FP) PO PRN (15:47)
[2022-11-05] MEDS: METHOCARBAMOL 500 MG TABLET PO PRN (15:48)
[2022-11-05] MEDS ORDERED: INSULIN (NOVOLOG) ASPART 100 UNITS/ML 10ML VIAL ONE (16:35)
[2022-11-05] MEDS: QUEtiapine FUMARATE 100 MG TABLET (FP) PO SCH (21:26)
[2022-11-05] MEDS: MOMETASONE FUROATE 220 MCG/IH INHALER IH SCH (21:27)
[2022-11-05] MEDS: MIRTAZAPINE 30 MG TABLET PO SCH (21:27)
[2022-11-05] MEDS: MELATONIN 5 MG TABLETS PO SCH (21:27)
[2022-11-05] MEDS: LIDOCAINE PATCH REMOVAL MC SCH (21:27)
[2022-11-05] MEDS: THIAMINE HCL 100 MG TABLET (FP) PO SCH (21:27)
[2022-11-06] MEDS: metFORMIN HCL 500 MG TABLET (FP) PO SCH ×2 (07:55→17:07)
[2022-11-06] MEDS: INSULIN SLIDING SCALE (NOVOLOG) 1 VIAL SQ SCH ×2 (07:55→17:08)
[2022-11-06] MEDS: QUEtiapine FUMARATE 25 MG TABLET PO SCH (10:02)
[2022-11-06] MEDS: PRENATAL VITAMINS W/ FOLIC ACID TABLET (FP) PO SCH (10:02)
[2022-11-06] MEDS: TAMSULOSIN HCL 0.4 MG CAP PO SCH (10:02)
[2022-11-06] MEDS: NICOTINE 7 MG/24 HOURS TOPICAL PATCH TD SCH (10:03)
[2022-11-06] MEDS: LISINOPRIL 10 MG TABLET PO SCH (10:03)
[2022-11-06] MEDS: LIDOCAINE 5% TOPICAL PATCH TP SCH (10:04)
[2022-11-06] MEDS ORDERED: INSULIN (NOVOLOG) ASPART 100 UNITS/ML 10ML VIAL ONE (16:52)
[2022-11-06] MEDS: QUEtiapine FUMARATE 100 MG TABLET (FP) PO SCH (21:30)
[2022-11-06] MEDS: MELATONIN 5 MG TABLETS PO SCH (21:30)
[2022-11-06] MEDS: MOMETASONE FUROATE 220 MCG/IH INHALER IH SCH (21:30)
[2022-11-06] MEDS: MIRTAZAPINE 30 MG TABLET PO SCH (21:30)
[2022-11-06] MEDS: LIDOCAINE PATCH REMOVAL MC SCH (21:30)
[2022-11-06] MEDS: THIAMINE HCL 100 MG TABLET (FP) PO SCH (21:31)
[2022-11-07] MEDS: INSULIN SLIDING SCALE (NOVOLOG) 1 VIAL SQ SCH ×2 (06:50→17:15)
[2022-11-07] MEDS: metFORMIN HCL 500 MG TABLET (FP) PO SCH ×2 (06:56→17:14)
[2022-11-07] MEDS: NICOTINE 7 MG/24 HOURS TOPICAL PATCH TD SCH (10:33)
[2022-11-07] MEDS: MOMETASONE FUROATE 220 MCG/IH INHALER IH SCH (10:38)
[2022-11-07] MEDS: PRENATAL VITAMINS W/ FOLIC ACID TABLET (FP) PO SCH (10:38)
[2022-11-07] MEDS: LISINOPRIL 10 MG TABLET PO SCH (10:38)
[2022-11-07] MEDS: QUEtiapine FUMARATE 25 MG TABLET PO SCH (10:38)
[2022-11-07] MEDS: TAMSULOSIN HCL 0.4 MG CAP PO SCH (10:38)
[2022-11-07] MEDS: LIDOCAINE 5% TOPICAL PATCH TP SCH (10:38)
[2022-11-07] MEDS: IBUPROFEN 400 MG TABLET (FP) PO PRN (19:15)
[2022-11-07] MEDS: METHOCARBAMOL 500 MG TABLET PO PRN (19:15)
[2022-11-07] MEDS: THIAMINE HCL 100 MG TABLET (FP) PO SCH (21:23)
[2022-11-07] MEDS: MIRTAZAPINE 15 MG TABLET (FP) PO SCH (21:23)
[2022-11-07] MEDS: LIDOCAINE PATCH REMOVAL MC SCH (21:24)
[2022-11-07] MEDS: MELATONIN 5 MG TABLETS PO SCH (21:24)
[2022-11-07] MEDS: QUEtiapine FUMARATE 100 MG TABLET (FP) PO SCH (21:24)
[2022-11-08] MEDS: metFORMIN HCL 500 MG TABLET (FP) PO SCH ×2 (08:03→17:03)
[2022-11-08] MEDS: INSULIN SLIDING SCALE (NOVOLOG) 1 VIAL SQ SCH ×2 (08:04→17:03)
[2022-11-08] MEDS: METHOCARBAMOL 500 MG TABLET PO PRN (10:17)
[2022-11-08] MEDS: LIDOCAINE 5% TOPICAL PATCH TP SCH (10:17)
[2022-11-08] MEDS: IBUPROFEN 400 MG TABLET (FP) PO PRN (10:17)
[2022-11-08] MEDS: TAMSULOSIN HCL 0.4 MG CAP PO SCH (10:18)
[2022-11-08] MEDS: MOMETASONE FUROATE 220 MCG/IH INHALER IH SCH (10:20)
[2022-11-08] MEDS: NICOTINE 7 MG/24 HOURS TOPICAL PATCH TD SCH (10:20)
[2022-11-08] MEDS: PRENATAL VITAMINS W/ FOLIC ACID TABLET (FP) PO SCH (10:21)
[2022-11-08] MEDS: LISINOPRIL 10 MG TABLET PO SCH (11:04)
[2022-11-08] MEDS: QUEtiapine FUMARATE 25 MG TABLET PO SCH (11:04)
[2022-11-08] MEDS: LIDOCAINE PATCH REMOVAL MC SCH (22:01)
[2022-11-08] MEDS: QUEtiapine FUMARATE 100 MG TABLET (FP) PO SCH (23:00)
[2022-11-08] MEDS: MELATONIN 5 MG TABLETS PO SCH (23:00)
[2022-11-08] MEDS: MIRTAZAPINE 15 MG TABLET (FP) PO SCH (23:00)
[2022-11-08] MEDS: THIAMINE HCL 100 MG TABLET (FP) PO SCH (23:01)
[2022-11-09] MEDS: metFORMIN HCL 500 MG TABLET (FP) PO SCH ×2 (07:22→16:55)
[2022-11-09] MEDS: INSULIN SLIDING SCALE (NOVOLOG) 1 VIAL SQ SCH ×2 (07:23→16:55)
[2022-11-09 07:32] VITALS: RESP 18
[2022-11-09] MEDS: IBUPROFEN 400 MG TABLET (FP) PO PRN (08:41)
[2022-11-09] MEDS: METHOCARBAMOL 500 MG TABLET PO PRN (08:41)
[2022-11-09] MEDS: TAMSULOSIN HCL 0.4 MG CAP PO SCH (08:41)
[2022-11-09] MEDS: PRENATAL VITAMINS W/ FOLIC ACID TABLET (FP) PO SCH (09:59)
[2022-11-09] MEDS: NICOTINE 7 MG/24 HOURS TOPICAL PATCH TD SCH (09:59)
[2022-11-09] MEDS: LIDOCAINE 5% TOPICAL PATCH TP SCH (09:59)
[2022-11-09] MEDS: LISINOPRIL 10 MG TABLET PO SCH (09:59)
[2022-11-09] MEDS: MOMETASONE FUROATE 220 MCG/IH INHALER IH SCH (09:59)
[2022-11-09] MEDS: QUEtiapine FUMARATE 25 MG TABLET PO SCH (10:00)
[2022-11-09] MEDS: MELATONIN 5 MG TABLETS PO SCH (23:04)
[2022-11-09] MEDS: MIRTAZAPINE 15 MG TABLET (FP) PO SCH (23:04)
[2022-11-09] MEDS: LIDOCAINE PATCH REMOVAL MC SCH (23:04)
[2022-11-09] MEDS: QUEtiapine FUMARATE 100 MG TABLET (FP) PO SCH (23:04)
[2022-11-09] MEDS: THIAMINE HCL 100 MG TABLET (FP) PO SCH (23:05)
[2022-11-10] MEDS: IBUPROFEN 400 MG TABLET (FP) PO PRN ×2 (06:52→22:13)
[2022-11-10] MEDS: METHOCARBAMOL 500 MG TABLET PO PRN ×2 (06:52→22:14)
[2022-11-10] MEDS: INSULIN SLIDING SCALE (NOVOLOG) 1 VIAL SQ SCH ×2 (07:04→17:05)
[2022-11-10] MEDS: metFORMIN HCL 500 MG TABLET (FP) PO SCH ×2 (07:04→17:05)
[2022-11-10] MEDS: LIDOCAINE 5% TOPICAL PATCH TP SCH (09:54)
[2022-11-10] MEDS: MOMETASONE FUROATE 220 MCG/IH INHALER IH SCH (09:54)
[2022-11-10] MEDS: TAMSULOSIN HCL 0.4 MG CAP PO SCH (09:54)
[2022-11-10] MEDS: PRENATAL VITAMINS W/ FOLIC ACID TABLET (FP) PO SCH (09:55)
[2022-11-10] MEDS: NICOTINE 7 MG/24 HOURS TOPICAL PATCH TD SCH (09:55)
[2022-11-10] MEDS: LISINOPRIL 10 MG TABLET PO SCH ×2 (09:55→11:14)
[2022-11-10] MEDS: QUEtiapine FUMARATE 25 MG TABLET PO SCH (09:55)
[2022-11-10] MEDS: QUEtiapine FUMARATE 100 MG TABLET (FP) PO SCH (22:16)
[2022-11-10] MEDS: THIAMINE HCL 100 MG TABLET (FP) PO SCH (22:17)
[2022-11-10] MEDS: LIDOCAINE PATCH REMOVAL MC SCH (22:18)
[2022-11-10] MEDS: MIRTAZAPINE 15 MG TABLET (FP) PO SCH (22:18)
[2022-11-10] MEDS: MELATONIN 5 MG TABLETS PO SCH (22:18)
[2022-11-11] MEDS: metFORMIN HCL 500 MG TABLET (FP) PO SCH ×2 (07:26→16:48)
[2022-11-11] MEDS: INSULIN SLIDING SCALE (NOVOLOG) 1 VIAL SQ SCH ×2 (07:27→16:48)
[2022-11-11] MEDS: METHOCARBAMOL 500 MG TABLET PO PRN ×2 (08:44→16:51)
[2022-11-11] MEDS: TAMSULOSIN HCL 0.4 MG CAP PO SCH (08:44)
[2022-11-11] MEDS: IBUPROFEN 400 MG TABLET (FP) PO PRN ×2 (08:44→16:51)
[2022-11-11] MEDS: LISINOPRIL 10 MG TABLET PO SCH (10:04)
[2022-11-11] MEDS: MOMETASONE FUROATE 220 MCG/IH INHALER IH SCH (10:05)
[2022-11-11] MEDS: QUEtiapine FUMARATE 25 MG TABLET PO SCH (10:05)
[2022-11-11] MEDS: PRENATAL VITAMINS W/ FOLIC ACID TABLET (FP) PO SCH (10:05)
[2022-11-11] MEDS: NICOTINE 7 MG/24 HOURS TOPICAL PATCH TD SCH (10:05)
[2022-11-11] MEDS: LIDOCAINE 5% TOPICAL PATCH TP SCH (10:05)
[2022-11-11] MEDS: THIAMINE HCL 100 MG TABLET (FP) PO SCH (22:07)
[2022-11-11] MEDS: MELATONIN 5 MG TABLETS PO SCH (22:08)
[2022-11-11] MEDS: MIRTAZAPINE 15 MG TABLET (FP) PO SCH (22:08)
[2022-11-11] MEDS: LIDOCAINE PATCH REMOVAL MC SCH (22:08)
[2022-11-11] MEDS: QUEtiapine FUMARATE 100 MG TABLET (FP) PO SCH (22:09)
[2022-11-12] MEDS: IBUPROFEN 400 MG TABLET (FP) PO PRN (07:27)
[2022-11-12] MEDS: METHOCARBAMOL 500 MG TABLET PO PRN ×2 (07:27→17:31)
[2022-11-12] MEDS: INSULIN SLIDING SCALE (NOVOLOG) 1 VIAL SQ SCH ×2 (07:28→17:08)
[2022-11-12] MEDS: metFORMIN HCL 500 MG TABLET (FP) PO SCH ×2 (07:28→17:07)
[2022-11-12] MEDS: LIDOCAINE 5% TOPICAL PATCH TP SCH (09:49)
[2022-11-12] MEDS: TAMSULOSIN HCL 0.4 MG CAP PO SCH (09:50)
[2022-11-12] MEDS: NICOTINE 7 MG/24 HOURS TOPICAL PATCH TD SCH (09:50)
[2022-11-12] MEDS: MOMETASONE FUROATE 220 MCG/IH INHALER IH SCH (09:50)
[2022-11-12] MEDS: PRENATAL VITAMINS W/ FOLIC ACID TABLET (FP) PO SCH (10:21)
[2022-11-12] MEDS: LISINOPRIL 10 MG TABLET PO SCH (10:30)
[2022-11-12] MEDS: QUEtiapine FUMARATE 25 MG TABLET PO SCH (10:30)
[2022-11-12] MEDS: IBUPROFEN 600 MG TABLET (FP) PO PRN ×2 (11:59→17:30)
[2022-11-12] MEDS: THIAMINE HCL 100 MG TABLET (FP) PO SCH (23:07)
[2022-11-12] MEDS: LIDOCAINE PATCH REMOVAL MC SCH (23:07)
[2022-11-12] MEDS: MIRTAZAPINE 15 MG TABLET (FP) PO SCH (23:07)
[2022-11-12] MEDS: QUEtiapine FUMARATE 100 MG TABLET (FP) PO SCH (23:07)
[2022-11-12] MEDS: METHYL SALICYLATE/MENTHOL OINT 30 GM TUBE TP SCH (23:07)
[2022-11-12] MEDS: MELATONIN 5 MG TABLETS PO SCH (23:07)
[2022-11-13] MEDS: metFORMIN HCL 500 MG TABLET (FP) PO SCH ×2 (06:10→16:54)
[2022-11-13] MEDS: IBUPROFEN 600 MG TABLET (FP) PO PRN ×2 (06:10→13:36)
[2022-11-13] MEDS: METHOCARBAMOL 500 MG TABLET PO PRN ×2 (06:10→13:36)
[2022-11-13] MEDS: INSULIN SLIDING SCALE (NOVOLOG) 1 VIAL SQ SCH ×2 (06:16→16:54)
[2022-11-13] MEDS: TAMSULOSIN HCL 0.4 MG CAP PO SCH (07:42)
[2022-11-13] MEDS: MAG HYDROX/AL HYDROX/SIMETH 30 ML UNIT-DOSE CUP PO PRN (08:42)
[2022-11-13] MEDS: LISINOPRIL 10 MG TABLET PO SCH (09:48)
[2022-11-13] MEDS: QUEtiapine FUMARATE 25 MG TABLET PO SCH (09:49)
[2022-11-13] MEDS: PRENATAL VITAMINS W/ FOLIC ACID TABLET (FP) PO SCH (09:49)
[2022-11-13] MEDS: MOMETASONE FUROATE 220 MCG/IH INHALER IH SCH (09:49)
[2022-11-13] MEDS: NICOTINE 7 MG/24 HOURS TOPICAL PATCH TD SCH (09:49)
[2022-11-13] MEDS: LIDOCAINE 5% TOPICAL PATCH TP SCH (09:49)
[2022-11-13] MEDS: NICOTINE 10 MG CARTRIDGE (INHALER) IH PRN (16:09)
[2022-11-13] MEDS ORDERED: INSULIN (NOVOLOG) ASPART 100 UNITS/ML 10ML VIAL ONE (16:35)
[2022-11-13] MEDS: THIAMINE HCL 100 MG TABLET (FP) PO SCH (22:20)
[2022-11-13] MEDS: QUEtiapine FUMARATE 100 MG TABLET (FP) PO SCH (22:20)
[2022-11-13] MEDS: METHYL SALICYLATE/MENTHOL OINT 30 GM TUBE TP SCH (22:21)
[2022-11-13] MEDS: MELATONIN 5 MG TABLETS PO SCH (22:22)
[2022-11-13] MEDS: MIRTAZAPINE 15 MG TABLET (FP) PO SCH (22:22)
[2022-11-13] MEDS: LIDOCAINE PATCH REMOVAL MC SCH (22:22)
[2022-11-14] MEDS: metFORMIN HCL 500 MG TABLET (FP) PO SCH (06:40)
[2022-11-14] MEDS: INSULIN SLIDING SCALE (NOVOLOG) 1 VIAL SQ SCH (06:41)
[2022-11-14 06:55] VITALS: TEMP 97.6
[2022-11-14] MEDS: METHOCARBAMOL 500 MG TABLET PO PRN (08:33)
[2022-11-14] MEDS: TAMSULOSIN HCL 0.4 MG CAP PO SCH (08:33)
[2022-11-14] MEDS: IBUPROFEN 600 MG TABLET (FP) PO PRN (08:33)
[2022-11-14 09:06] VITALS: BP 128/86; PULSE 99
[2022-11-14] MEDS: NICOTINE 7 MG/24 HOURS TOPICAL PATCH TD SCH (09:44)
[2022-11-14] MEDS: PRENATAL VITAMINS W/ FOLIC ACID TABLET (FP) PO SCH (09:44)
[2022-11-14] MEDS: LIDOCAINE 5% TOPICAL PATCH TP SCH (09:44)
[2022-11-14] MEDS: MOMETASONE FUROATE 220 MCG/IH INHALER IH SCH (09:44)
[2022-11-14] MEDS: QUEtiapine FUMARATE 25 MG TABLET PO SCH (09:45)
[2022-11-14] MEDS: LISINOPRIL 10 MG TABLET PO SCH (09:45)
== END 2022-11-14 10:38 | disposition home or self-care (01) | DRG 772 ==
LOC: YASAS 12:50 → Y5N 12:51
PROVIDERS: ADMIT Allergy & Immunology; ATTEND Psychiatry & Neurology Pain Medicine
PROC: HZ42ZZZ Group Counseling for Substance Abuse Treatment, Cognitive-Behavioral (ICD-10-PCS; principal; 2022-11-01)
DX: F11.20 Opioid dependence, uncomplicated (principal); F10.20 Alcohol dependence, uncomplicated; F14.20 Cocaine dependence, uncomplicated; F12.20 Cannabis dependence, uncomplicated; F17.210 Nicotine dependence, cigarettes, uncomplicated; F19.282 Other psychoactive substance dependence with psychoactive substance-induced sleep disorder; F19.24 Other psychoactive substance dependence with psychoactive substance-induced mood disorder; F25.9 Schizoaffective disorder, unspecified; I10 Essential (primary) hypertension; E11.9 Type 2 diabetes mellitus without complications; Z79.84 Long term (current) use of oral hypoglycemic drugs; J45.20 Mild intermittent asthma, uncomplicated; M54.32 Sciatica, left side
CPT/HCPCS: 36415; 82962; 86803; 87811; C9803-CS; U0003; U0005